=== PATIENT | female | born 1985 | race Caucasian/White ===

== ENCOUNTER 2020-06-23 21:04 | Emergency (ER) | payer MEDICAID, SELFPAY ==
[2020-06-23 21:07] VITALS: BP 112/61; PULSE 86; RESP 18; TEMP 37.3; O2SAT 100; BMI 25.8
--- NOTE | 2020-06-23 23:48 | ED.GENADULT ---
HPI - General Adult General Chief complaint: General Medical Stated complaint: vomiting,body aches Time Seen by Provider: 06/23/20 23:48 Source: patient Mode of arrival: ambulatory Limitations: no limitations History of Present Illness MD complaint: abbdominal pain, n/v/d Onset (ago): day(s) (yesterday) Location: abdomen Radiation: non-radiation Severity: moderate Quality: aching Pain Consistency: constant Relieving factors: none Exacerbating factors: none Associated symptoms: fever/chills, loss of appetite, malaise and nausea/vomiting Treatments prior to arrival: none Related Data Previous Rx's Medication Instructions Recorded ondansetron 4 mg PO Q8H PRN #20 tab 06/24/20 Allergies Allergy/AdvReac Type Severity Reaction Status Date / Time prochlorperazine Allergy Mild MUSCLE Unverified 05/13/20 19:39 [From COMPAZINE] CONTRACTIONS Compazine Allergy Unknown Uncoded 03/20/19 00:00 Review of Systems Review of Systems: Constitutional : No Weight loss, No Fever, pos Chills ENT/Mouth : No sore throat, No Rhinorrhea Eyes: No Swelling, No Redness Cardiovascular : No Chest Pain, No SOB, NoEdema Respiratory : No Cough, No Sputum, No Wheezing Gastrointestinal : Positive Nausea, Positive Vomiting, positive Diarrhea, positive abdominal Pain, No Hematochezia, No Melena Genitourinary : No Dysuria, No Urinary Frequency, No Hematuria, No Urgency Musculoskeletal : No joint pain, No Myalgias, No Joint Swelling Skin : No Skin Lesions, No rash Neuro : No Weakness, No Numbness, No Dizziness, No Headache Psych : No Anxiety/Panic, No Depression Heme/Lymph: No Bruising, No Lymphadenopathy Endocrine : No Polyuria, No Polydipsia All other systems reviewed and are negative. [facility] Past Medical History Attestation statement: The following information was validated with the patient. Medical History Hyperthyroidism Social History Social History (Updated 06/24/20 @ 00:11 by Savannah Sapp DO) Smoking Status: Never smoker Substance Use Type: Marijuana Advance Directives: No Advance Directives Information Provided: No Physical Exam Vital Signs: Vital Signs: Vital Signs Temp Pulse Resp BP Pulse Ox 06/23/20 21:07 99.2 F 86 18 112/61 100 Body Mass Index 25.8 Appearance: Alert. Oriented X3. No acute distress. Eyes: Pupils equal, round and reactive to light. ENT: Pharynx mild dry MM Neck: Normal inspection. Neck supple. CVS: Normal heart rate and rhythm. Pulses normal. Respiratory: No respiratory distress. Breath sounds normal. Abdomen: Soft and mild epigastric ttp, no RUQ pain neg Chowdary's Skin: Skin warm and dry. Normal skin color. Normal skin turgor. Extremities: No lower extremity edema. No calf ttp Neuro: Oriented X 3. No motor deficit. No sensory deficit. Course Course Course Narrative: feels much better, tolerating PO stable for DC Medical Decision Making [facility] Narrative Medical decision making narrative: 34 yo female with upper abdominal pain smokes THC - c/o n/v/d no prior episodes at this time will need labs, UA, IVF, IV antiemetics, no localizing symptoms no RLQ pain and no RUQ pain could be viral vs THC dispo per results and findings Lab Data Result diagrams: 06/24/20 00:30 06/24/20 00:30 Labs: Lab Results 06/24/20 06/24/20 06/24/20 Range/Units 00:30 00:30 00:30 WBC 5.1 (4.8-10.8) X10*3/uL RBC 3.39 L (4.20-5.50) X10*6/uL Hgb 11.3 L (12.0-16.0) g/dl Hct 33.6 L (37-47) % MCV 99.1 H (80-98) fL MCH 33.3 H (27.0-33.0) pg MCHC 33.6 (31.0-35.0) g/dl RDW 11.9 (11.0-16.0) % Plt Count 291 (160-400) X10*3/uL MPV 8.9 L (9.4-12.3) fL Immature Gran % (Auto) 0.2 (0.0-0.4) % Neut % (Auto) 53.1 (45-73) % Lymph % (Auto) 38.4 (20-40) % [place] % (Auto) 5.3 (2-11) % Eos % (Auto) 2.2 (0-4) % Baso % (Auto) 0.8 (0-2) % Lymph # (Auto) 2.0 (1.2-4.9) X10*3/uL [place] # (Auto) 0.3 (0.1-1.2) X10*3/uL Eos # (Auto) 0.1 (0.0-0.4) X10*3/uL Baso # (Auto) 0.0 (0.0-0.2) X10*3/uL Abs Immat Gran (auto) 0.01 (0.00-0.03) X10*3/uL Absolute Neuts (auto) 2.7 (2.0-8.3) X10*3/uL Absolute Nucleated RBC 0.000 (0.0-0.012) X10*3/uL Nucleated RBC % (auto) 0.0 (0.0-0.2) /100WBC Hold Blue Top SEE NOTE Sodium 140 (135-145) mmol/L Potassium 3.8 (3.3-5.1) mmol/l Chloride 106 (96-108) mmol/L Carbon Dioxide 28 (22-29) mmol/L Anion Gap 10 L (12-20) BUN 16 (9-16) mg/dL Creatinine 0.72 (0.5-1.4) mg/dL Estim Creat Clear Calc 116.2 Estimated GFR > 60 Random Glucose 87 (60-115) mg/dL Calcium 8.9 (8.4-10.2) mg/dL Magnesium (1.6-2.6) mg/dL Total Bilirubin (0.0-1.0) mg/dL Direct Bilirubin (0.0-0.5) mg/dL AST (5-31) U/L ALT (0-31) U/L Alkaline Phosphatase (39-117) U/L Total Protein (6.5-8.0) g/dL Albumin (3.5-5.0) g/dL Lipase (8-78) U/L Urine Color Urine Appearance Urine pH (5.0-8.0) Ur Specific [place] (1.005-1.025) Urine Protein (NEG-TRACE) MG/DL Urine Glucose (UA) (NEG) MG/DL Urine Ketones (NEG) MG/DL Urine Blood (NEG) Urine Nitrite (NEG) Ur Leukocyte Esterase (NEG) Urine Test (NEGATIVE) 06/24/20 06/24/20 Range/Units 00:30 02:44 WBC (4.8-10.8) X10*3/uL RBC (4.20-5.50) X10*6/uL Hgb (12.0-16.0) g/dl Hct (37-47) % MCV (80-98) fL MCH (27.0-33.0) pg MCHC (31.0-35.0) g/dl RDW (11.0-16.0) % Plt Count (160-400) X10*3/uL MPV (9.4-12.3) fL Immature Gran % (Auto) (0.0-0.4) % Neut % (Auto) (45-73) % Lymph % (Auto) (20-40) % [place] % (Auto) (2-11) % Eos % (Auto) (0-4) % Baso % (Auto) (0-2) % Lymph # (Auto) (1.2-4.9) X10*3/uL [place] # (Auto) (0.1-1.2) X10*3/uL Eos # (Auto) (0.0-0.4) X10*3/uL Baso # (Auto) (0.0-0.2) X10*3/uL Abs Immat Gran (auto) (0.00-0.03) X10*3/uL Absolute Neuts (auto) (2.0-8.3) X10*3/uL Absolute Nucleated RBC (0.0-0.012) X10*3/uL Nucleated RBC % (auto) (0.0-0.2) /100WBC Hold Blue Top Sodium (135-145) mmol/L Potassium (3.3-5.1) mmol/l Chloride (96-108) mmol/L Carbon Dioxide (22-29) mmol/L Anion Gap (12-20) BUN (9-16) mg/dL Creatinine (0.5-1.4) mg/dL Estim Creat Clear Calc Estimated GFR Random Glucose (60-115) mg/dL Calcium (8.4-10.2) mg/dL Magnesium 2.3 (1.6-2.6) mg/dL Total Bilirubin 0.7 (0.0-1.0) mg/dL Direct Bilirubin 0.2 (0.0-0.5) mg/dL AST 25 (5-31) U/L ALT 12 (0-31) U/L Alkaline Phosphatase 44 (39-117) U/L Total Protein 7.7 (6.5-8.0) g/dL Albumin 3.9 (3.5-5.0) g/dL Lipase 18 (8-78) U/L Urine Color [place] Urine Appearance HAZY Urine pH 5.5 (5.0-8.0) Ur Specific [place] >= 1.030 H (1.005-1.025) Urine Protein NEG (NEG-TRACE) MG/DL Urine Glucose (UA) NEG (NEG) MG/DL Urine Ketones 5 (NEG) MG/DL Urine Blood NEG (NEG) Urine Nitrite NEG (NEG) Ur Leukocyte Esterase NEG (NEG) Urine Test NEGATIVE (NEGATIVE) Discharge Plan Discharge Clinical Impression: Gastritis, Vomiting Patient Disposition: Home, Self-Care Instructions: Gastritis (ED), Acute Nausea and Vomiting (ED) Additional Instructions: if your symptoms return you have more vomiting or increased pain, if the pain moves to your right lower abdomen please return Prescriptions: New ondansetron 4 mg tablet,disintegrating 4 mg PO Q8H PRN (Reason: nausea and vomiting) Qty: 20 RF: 0
[2020-06-24] MEDS: Ketorolac Tromethamine 30 MG/ML VIAL IVPUSH (00:40)
[2020-06-24] MEDS: ondansetron HCL 4 MG/2 ML VIAL IVPUSH (00:41)
[2020-06-24] MEDS: Famotidine/PF 20 MG/2 ML VIAL IVPUSH (00:42)
[2020-06-24] MEDS: LORazepam 2 MG/ML VIAL 1 MG IVPUSH (00:42)
[2020-06-24] MEDS: diphenhydrAMINE HCL 50 MG/ML VIAL 25 MG IVPUSH (00:42)
[2020-06-24] MEDS: 0.9 % Sodium Chloride 1,000 ML 999 ML IVCONT (00:42)
[2020-06-24 00:44] LABS: MANUAL DIFF FLAG NO
[2020-06-24 00:45] LABS: Basophils Percent Auto 0.8 % (0-2); Eosinophils Absolute Auto 0.1 X10*3/uL (0.0-0.4); Eosinophils Percent Auto 2.2 % (0-4); Hematocrit 33.6 % (37-47); Hemoglobin 11.3 g/dl (12.0-16.0); Imm Gran Abs Auto 0.01 X10*3/uL (0.00-0.03); Imm Gran Pct Auto 0.2 % (0.0-0.4); Lymphocytes Percent Auto 38.4 % (20-40); Mean Corpuscular HGB Conc 33.6 g/dl (31.0-35.0); Mean Corpuscular Hemoglobin 33.3 pg (27.0-33.0); Mean Corpuscular Volume 99.1 fL (80-98); Mean Platelet Volume 8.9 fL (9.4-12.3); Monocytes Absolute Auto 0.3 X10*3/uL (0.1-1.2); Monocytes Percent Auto 5.3 % (2-11); Neutrophils Absolute Auto 2.7 X10*3/uL (2.0-8.3); Neutrophils Percent Auto 53.1 % (45-73); Platelet Count 291 X10*3/uL (160-400); Red Blood Count 3.39 X10*6/uL (4.20-5.50); Red Cell Distribution Width 11.9 % (11.0-16.0); White Blood Count 5.1 X10*3/uL (4.8-10.8)
[2020-06-24 01:07] LABS: Anion Gap 10 (12-20); Blood Urea Nitrogen 16 mg/dL (9-16); Calcium 8.9 mg/dL (8.4-10.2); Carbon Dioxide 28 mmol/L (22-29); Chloride 106 mmol/L (96-108); Creatinine Clr Calc Pharmacy 116.2; Estimated Glomerular Filt Rate > 60; Glucose Random 87 mg/dL (60-115); Potassium 3.8 mmol/l (3.3-5.1); Sodium 140 mmol/L (135-145)
[2020-06-24 01:10] LABS: Alanine Aminotransferase 12 U/L (0-31); Albumin Level 3.9 g/dL (3.5-5.0); Alkaline Phosphatase 44 U/L (39-117); Aspartate Amino Transferase 25 U/L (5-31); Bilirubin Direct 0.2 mg/dL (0.0-0.5); Bilirubin Total 0.7 mg/dL (0.0-1.0); Lipase 18 U/L (8-78); Magnesium 2.3 mg/dL (1.6-2.6); Total Protein 7.7 g/dL (6.5-8.0)
[2020-06-24] MEDS: Morphine Sulfate 4 MG/ML CARTRIDGE IVPUSH (01:45)
[2020-06-24 02:53] LABS: Appearance Urine HAZY; Color Urine AMBER; Glucose Urine UA NEG (NEG); Leukocyte Esterase Urine NEG (NEG); Nitrite Urine NEG (NEG); PH 5.5 (5.0-8.0); Specific Gravity - Urine >= 1.030 (1.005-1.025); UACC Culture Trigger NO; Urine Blood NEG (NEG); Urine Ketones 5 MG/DL (NEG); Urine Protein NEG (NEG-TRACE)
[2020-06-24 02:54] LABS: UPreg QC Valid YES
[2020-06-24 02:55] LABS: Urine Pregnancy NEGATIVE (NEGATIVE)
[2020-06-24 03:20] LABS: Amphetamine Screen Urine Not Detected (Not Detect); Barbiturates, Urine Not Detected (Not Detect); Benzodiazepines Screen Urine Not Detected (Not Detect); Cannabinoid Screen Urine POSITIVE (Not Detect); Cocaine Screen Urine Not Detected (Not Detect); Opiate Screen Urine POSITIVE (Not Detect); Phencyclidine Screen Urine Not Detected (Not Detect)
== END 2020-06-24 03:29 | disposition home or self-care (01) ==
PROVIDERS: Emergency Provider Emergency Medicine
DX: K29.00 Acute gastritis without bleeding (principal); M79.10 Myalgia, unspecified site; R11.10 Vomiting, unspecified; Z20.828 Contact with and (suspected) exposure to other viral communicable diseases
CPT/HCPCS: 36415; 80048; 80076; 80307; 81003; 81025; 83690; 83735; 85025; 96361; 96374; 96375; 99283; 99284; J1200; J1885; J2060; J2270; J2405

== ENCOUNTER 2020-10-21 14:19 | Emergency (ER) | payer MEDICAID, SELFPAY ==
--- NOTE | ~2020-10-21 | XR_ITS ---
EXAMINATION: XR CHEST CLINICAL INFORMATION: Cough, shortness of breath COMPARISON: None TECHNIQUE: Portable upright AP view of the chest was obtained. FINDINGS: The lungs are clear. There is no airspace consolidation, groundglass opacity, pleural reaction, or effusion. The heart is normal in size hilar and mediastinal contours are normal. There is gentle levocurvature mid to lower thoracic spine. XR/XR chest 1V IMPRESSION: Unremarkable examination.
[2020-10-21 14:35] VITALS: BP 117/61; PULSE 97; RESP 16; TEMP 36.8; O2SAT 97; BMI 25.8
[2020-10-21 14:43] VITALS: BP 117/61; PULSE 97; RESP 16; TEMP 36.8; O2SAT 97
--- NOTE | 2020-10-21 14:46 | ED.ASTHMA ---
HPI - Asthma General Chief Complaint: Asthma Stated Complaint: sob,cough Time Seen by Provider: 10/21/20 14:36 Source: patient Mode of arrival: ambulatory Limitations: no limitations History of Present Illness HPI Narrative: 34 y/o female with history of mild, intermittent asthma and hypothyroidism presents to the ED from home with reports of SOB, coughing, and wheezing for the last 1 week. She has been using her son's nebulizers and inhalers at home because she does not have any of her own. She states her last asthma exacerbation was 3+ years ago. She has been unable to take a deep enough breath to cough up phlegm and feels like her chest is congested. She received both of the COVID-19 vaccinations. She denies fever, chills, headache, myalgias, N/V/D or abdominal pain. No chest pain. No sick contacts. MD complaint: asthma attack , shortness of breath and wheezing Onset (ago): day(s) (7-10) Severity: moderate Context: none known Associated symptoms: dry cough Asthma History: adult onset and history of prior ED visit Treatments Prior to Arrival: inhaled bronchodilator Related Data Current Asthma Therapy: none Previous Rx's Medication Instructions Recorded ondansetron 4 mg PO Q8H PRN #20 tab 06/24/20 albuterol sulfate 0.63 mg INHALATION Q4-6H PRN #75 ml 10/21/20 albuterol sulfate 1 inh INHALATION QID PRN #6.7 g 10/21/20 azithromycin [Zithromax Z-Gerson] See Rx Instructions .ROUTE 10/21/20 .COMPLEX #6 tab benzonatate [Tessalon Perles] 100 mg PO TID PRN #10 cap 10/21/20 prednisone 10 mg PO PER PKG DIR #48 ea 10/21/20 Allergies Allergy/AdvReac Type Severity Reaction Status Date / Time prochlorperazine Allergy Mild MUSCLE Unverified 05/13/20 19:39 [From COMPAZINE] CONTRACTIONS Compazine Allergy Unknown Uncoded 03/20/19 00:00 Review of Systems Review of Systems: Constitutional: No Fever, No Chills ENT/Mouth: No sore throat, No Rhinorrhea, No Swallowing Difficulty Cardiovascular: No Chest Pain, + SOB, No Orthopnea, No Edema Respiratory: + Cough, No Sputum, + Wheezing, + dyspnea Gastrointestinal: No Nausea, No Vomiting, No Diarrhea, No abdominal Pain Musculoskeletal: No joint pain, No Myalgias Skin: No Skin Lesions, No rash Neuro: No Weakness, No Numbness, No Dizziness, No Headache Psych: No Anxiety/Panic, No Depression Heme/Lymph: No Bruising, No Lymphadenopathy Endocrine: No Polyuria, No Polydipsia PMFSH Past Medical History Attestation statement: The following information was validated with the patient. Medical History (Updated 10/21/20 @ 15:03 by LAWRENCE Hazel) Asthma Hypothyroidism Social History Social History (Updated 06/24/20 @ 00:11 by Savannah Sapp DO) Alcohol intake: never Smoking Status: Never smoker Use of substances other than those prescribed or required for medical reasons: No Substance Use Type: Marijuana Advance Directives: No Advance Directives Information Provided: No Physical Exam Vital Signs: Vital Signs: Last Vital Signs Temp 98.3 F 10/21/20 14:43 Pulse 81 10/21/20 15:48 Resp 16 10/21/20 14:43 BP 117/61 10/21/20 14:43 Pulse Ox 97 10/21/20 14:43 Body Mass Index 25.8 Appearance: Alert. Oriented X3. No acute distress. Conversant. Eyes: Pupils equal, round and reactive to light. ENT: Pharynx normal. Neck: Normal inspection. Neck supple. CVS: Normal heart rate and rhythm. Pulses normal. Respiratory: No respiratory distress. Expiratory wheezes throughout with scattered rhonchi, prolonged expiratory phase. Abdomen: Soft and nontender. +BS x4 Skin: Skin warm and dry. Normal skin color. Normal skin turgor. No rashes. Extremities: No lower extremity edema. Negative Oren's sign. Neuro: Oriented X 3. No motor deficit. No sensory deficit. Course Course Course Narrative: 34 y/o female presenting with SOB, cough and wheezing consistent with acute asthma exacerbation. Non-toxic appearing and speaking in full sentences. Will plan for CXR, r/o COVID (low suspicion) and give hour long albuerol nebulizer and dose of prednisone. Anticipate d/c home with prednisone taper. Will reassess after neb. Reevaluation(s) Reevaluation #1: COVID negative. CXR clear. Significant improvement after nebulizer treatment. Will d/c with prednisone taper, zpak, and prn albuterol. Patient is agreeable to follow up with her PCP for further managmenet. MDM - Asthma Lab Data Labs: Lab Results 10/21/20 Range/Units 15:25 COVID-19 (JOSE MARTIN) Negative (Negative) COVID-19 Clin Com See Note Discharge Plan Discharge Clinical Impression: Asthma Qualifiers: Asthma severity: mild Asthma persistence: intermittent Asthma complication type: with acute exacerbation Qualified Code(s): J45.21 - Mild intermittent asthma with (acute) exacerbation Patient Disposition: Home, Self-Care Instructions: Asthma (ED) Additional Instructions: You were COVID negative today. Your chest x-ray was normal. Take the prescribed medications as directed for your asthma. Follow up with your doctor next week. If your breathing is worsening come back to the ER for further evaluation. Prescriptions: New azithromycin [Zithromax Z-Gerson] 250 mg tablet See Rx Instructions .ROUTE .COMPLEX Qty: 6 RF: 0 prednisone 10 mg tablets,dose pack 10 mg PO PER PKG DIR Qty: 48 RF: 0 benzonatate [Tessalon Perles] 100 mg capsule 100 mg PO TID PRN (Reason: cough) Qty: 10 RF: 0 albuterol sulfate 90 mcg/actuation HFA aerosol inhaler 1 inh inhalation QID PRN (Reason: shortness of breath or wheezing) Qty: 6.7 RF: 0 albuterol sulfate 0.63 mg/3 mL solution for nebulization 0.63 mg inhalation Q4-6H PRN (Reason: shortness of breath or wheezing) Qty: 75 RF: 0 No Action ondansetron 4 mg tablet,disintegrating 4 mg PO Q8H PRN (Reason: nausea and vomiting) Qty: 20 RF: 0
[2020-10-21] MEDS: guaiFENesin LA 600 MG TAB.ER.12H 1200 MG PO (15:19)
[2020-10-21] MEDS: predniSONE 20 MG TABLET 60 MG PO (15:19)
[2020-10-21] MEDS: Albuterol Sulfate (0.083%) 2.5 MG/3 ML VIAL.NEB 10 MG INHALE (15:46)
[2020-10-21 15:48] VITALS: PULSE 81; O2SAT 95
[2020-10-21 15:52] LABS: COVID-19 Test Negative (Negative)
[2020-10-21 16:46] VITALS: BP 122/78; PULSE 89; RESP 20; TEMP 36.8; O2SAT 96
== END 2020-10-21 17:00 | disposition home or self-care (01) ==
LOC: HO.ED 15:10
PROVIDERS: Physician Assistant; Emergency Provider Emergency Medicine
DX: J45.21 Mild intermittent asthma with (acute) exacerbation (principal); Z20.822 Contact with and (suspected) exposure to COVID-19; F12.90 Cannabis use, unspecified, uncomplicated
CPT/HCPCS: 36415; 71045; 87635; 94640; 94644; 99284; 99285

== ENCOUNTER 2020-12-11 03:34 | Emergency (ER) | payer MEDICAID, SELFPAY ==
[2020-12-11 03:43] VITALS: BP 130/70; PULSE 116; O2SAT 97
[2020-12-11 03:44] VITALS: BP 117/79; PULSE 111; RESP 20; TEMP 36.6; O2SAT 96; BMI 25.8
[2020-12-11 04:00] VITALS: BP 101/59; PULSE 77; RESP 18; O2SAT 93
[2020-12-11 04:55] LABS: Basophils Absolute Auto 0.1 X10*3/uL (0.0-0.2); Basophils Percent Auto 0.9 % (0-2); Eosinophils Absolute Auto 0.8 X10*3/uL (0.0-0.4); Eosinophils Percent Auto 9.5 % (0-4); Hematocrit 37.5 % (37-47); Hemoglobin 12.4 g/dl (12.0-16.0); Imm Gran Abs Auto 0.02 X10*3/uL (0.00-0.03); Imm Gran Pct Auto 0.2 % (0.0-0.4); Lymphocytes Absolute Auto 1.8 X10*3/uL (1.2-4.9); Lymphocytes Percent Auto 20.6 % (20-40); MANUAL DIFF FLAG NO; Mean Corpuscular HGB Conc 33.1 g/dl (31.0-35.0); Mean Corpuscular Hemoglobin 32.8 pg (27.0-33.0); Mean Corpuscular Volume 99.2 fL (80-98); Mean Platelet Volume 9.1 fL (9.4-12.3); Monocytes Absolute Auto 0.6 X10*3/uL (0.1-1.2); Neutrophils Absolute Auto 5.5 X10*3/uL (2.0-8.3); Neutrophils Percent Auto 61.8 % (45-73); Platelet Count 302 X10*3/uL (160-400); Red Blood Count 3.78 X10*6/uL (4.20-5.50); Red Cell Distribution Width 12.2 % (11.0-16.0); White Blood Count 8.8 X10*3/uL (4.8-10.8)
[2020-12-11 05:19] LABS: Anion Gap 14 (12-20); Blood Urea Nitrogen 12 mg/dL (9-16); Calcium 9.3 mg/dL (8.4-10.2); Carbon Dioxide 26 mmol/L (22-29); Chloride 106 mmol/L (96-108); Creatinine Clr Calc Pharmacy 115.1; Estimated Glomerular Filt Rate > 60; Glucose Random 82 mg/dL (60-115); Sodium 142 mmol/L (135-145)
[2020-12-11 05:27] VITALS: BP 105/60; PULSE 71; RESP 16; TEMP 36.6; O2SAT 2
--- NOTE | 2020-12-11 06:11 | ED.ASTHMA ---
HPI - Asthma General Chief Complaint: Asthma Stated Complaint: sob Time Seen by Provider: 12/11/20 06:08 Source: patient Mode of arrival: EMS Limitations: no limitations History of Present Illness HPI Narrative: Patient comes emergency room complaining of an asthma exacerbation. Patient states that he woke up from sleep with shortness of breath, used an inhaler 3 times with no relief. Patient was given a DuoNeb by EMS. Patient states now that she feels much better. Patient denies any recent URI infection. States her asthma exacerbations are usually relieved by her inhaler. At this time, denies shortness of breath, no chest tightness, feeling well. MD complaint: asthma attack Related Data Previous Rx's Medication Instructions Recorded ondansetron 4 mg PO Q8H PRN #20 tab 06/24/20 albuterol sulfate 0.63 mg INHALATION Q4-6H PRN #75 ml 10/21/20 albuterol sulfate 1 inh INHALATION QID PRN #6.7 g 10/21/20 azithromycin [Zithromax Z-Gerson] See Rx Instructions .ROUTE 10/21/20 .COMPLEX #6 tab benzonatate [Tessalon Perles] 100 mg PO TID PRN #10 cap 10/21/20 prednisone 10 mg PO PER PKG DIR #48 ea 10/21/20 prednisone 50 mg PO DAILY #4 tab 12/11/20 Allergies Allergy/AdvReac Type Severity Reaction Status Date / Time prochlorperazine Allergy Mild MUSCLE Verified 12/11/20 03:44 [From COMPAZINE] CONTRACTIONS Compazine Allergy Unknown Shakiness Uncoded 12/11/20 03:44 Review of Systems Review of Systems: Constitutional : No Weight loss, No Fever, No Chills, No Night Sweats, No Fatigue, No Malaise ENT/Mouth : No Hearing loss, No Ear Pain, No Nasal Congestion, No Sinus Pain, No Hoarseness, No sore throat, No Rhinorrhea, No Swallowing Difficulty Eyes: No Eye Pain, No Swelling, No Redness, No Foreign Body, No Discharge, No Vision Changes Cardiovascular : No Chest Pain, No SOB, No Dyspnea on Exertion, No Orthopnea, No Edema, No Palpitations Respiratory : No Cough, No Sputum, complaining of wheezing and dyspnea, asthma exacerbation Gastrointestinal : No Nausea, No Vomiting, No Diarrhea, No Constipation, No abdominal Pain, No Hematochezia, No Melena Genitourinary : no irregular bleeding, No Dysuria, No Urinary Frequency, No Hematuria, No Urinary Incontinence, No Urgency, No Flank Pain, No Urinary Flow Changes, No Hesitancy Musculoskeletal : No joint pain, No Myalgias, No Joint Swelling Skin : No Skin Lesions, No rash Neuro : No Weakness, No Numbness, No Paresthesias, No Loss of Consciousness, No Dizziness, No Headache Psych : No Anxiety/Panic, No Depression, No SI/HI/AH/VH, No Social Issues, Heme/Lymph: No Bruising, No Bleeding,No Lymphadenopathy Endocrine : No Polyuria, No Polydipsia, No Temperature Intolerance PMFSH Past Medical History Medical History Asthma Hypothyroidism Social History Social History (Updated 06/24/20 @ 00:11 by Savannah Sapp DO) Alcohol intake: never Smoking Status: Never smoker Use of substances other than those prescribed or required for medical reasons: Yes Substance Use Type: Marijuana Substance Use Frequency: Weekly Last Used Substance: Days (ago) Any prior treatment program specific to substance use: No Advance Directives: No Advance Directives Information Provided: No Physical Exam Vital Signs: Vital Signs: Last Vital Signs Temp 97.9 F 12/11/20 05:27 Pulse 71 12/11/20 05:27 Resp 16 12/11/20 05:27 BP 105/60 12/11/20 05:27 Pulse Ox 2 L 12/11/20 05:27 Body Mass Index 25.8 Appearance: Alert. Oriented X3. No acute distress. Eyes: Pupils equal, round and reactive to light. ENT: Pharynx normal. Neck: Normal inspection. Neck supple. No lymph nodes noted. No crepitus CVS: Normal heart rate and rhythm. Pulses normal. Normal S1 and S2 Respiratory: No respiratory distress. Breath sounds normal. No wheezing bilaterally, good air movement Abdomen: Soft and nontender. No rigidity. No distention. good BS x4 Skin: Skin warm and dry. Normal skin color. Normal skin turgor. Extremities: No lower extremity edema. No lower extremity edema. No Lacerations. No Rash Neuro: Oriented X 3. No motor deficit. No sensory deficit. Moving all extermities. No slurred speech. Course Course Course Narrative: After the DuoNeb that she received, patient started feeling better, breathing more comfortably. Patient will receive 125 mg of Solu-Medrol. Patient states that she has enough medication at home, patient will be given prednisone for home as well. As patient was being discharged, patient states that she started feeling short of breath. Breathing treatment and magnesium ordered. Respiratory therapist notified. Patient has mild bilateral diffuse wheezing, oxygen saturation 98% on room air, patient speaking in full sentences. Patient states that her IV was pulled out before she received 125 mg of Solu-Medrol Patient received her medications, breathing treatment, patient states that she feels much better. On physical exam, patient's oxygen saturation 98% on room air, walking around the ED 94%. Patient back in her room, feeling well, no shortness of breath, no wheezing. Patient already for discharge MDM - Asthma Lab Data Result diagrams: 12/11/20 04:46 12/11/20 04:46 Labs: Lab Results 12/11/20 12/11/20 Range/Units 04:46 04:46 WBC 8.8 (4.8-10.8) X10*3/uL RBC 3.78 L (4.20-5.50) X10*6/uL Hgb 12.4 (12.0-16.0) g/dl Hct 37.5 (37-47) % MCV 99.2 H (80-98) fL MCH 32.8 (27.0-33.0) pg MCHC 33.1 (31.0-35.0) g/dl RDW 12.2 (11.0-16.0) % Plt Count 302 (160-400) X10*3/uL MPV 9.1 L (9.4-12.3) fL Immature Gran % (Auto) 0.2 (0.0-0.4) % Neut % (Auto) 61.8 (45-73) % Lymph % (Auto) 20.6 (20-40) % [place] % (Auto) 7.0 (2-11) % Eos % (Auto) 9.5 H (0-4) % Baso % (Auto) 0.9 (0-2) % Lymph # (Auto) 1.8 (1.2-4.9) X10*3/uL [place] # (Auto) 0.6 (0.1-1.2) X10*3/uL Eos # (Auto) 0.8 H (0.0-0.4) X10*3/uL Baso # (Auto) 0.1 (0.0-0.2) X10*3/uL Abs Immat Gran (auto) 0.02 (0.00-0.03) X10*3/uL Absolute Neuts (auto) 5.5 (2.0-8.3) X10*3/uL Absolute Nucleated RBC 0.000 (0.0-0.012) X10*3/uL Nucleated RBC % (auto) 0.0 (0.0-0.2) /100WBC Sodium 142 (135-145) mmol/L Potassium 4.0 (3.3-5.1) mmol/L Chloride 106 (96-108) mmol/L Carbon Dioxide 26 (22-29) mmol/L Anion Gap 14 (12-20) BUN 12 (9-16) mg/dL Creatinine 0.72 (0.5-1.4) mg/dL Estim Creat Clear Calc 115.1 Estimated GFR > 60 Random Glucose 82 (60-115) mg/dL Calcium 9.3 (8.4-10.2) mg/dL Discharge Plan Discharge Clinical Impression: Asthma Patient Disposition: Home, Self-Care Instructions: Bronchospasm (ED) Additional Instructions: Please follow-up with your primary care physician tomorrow. If you have any worsening or new symptoms, please return to the emergency room or call 911 Prescriptions: New prednisone 50 mg tablet 50 mg PO DAILY Qty: 4 RF: 0 No Action ondansetron 4 mg tablet,disintegrating 4 mg PO Q8H PRN (Reason: nausea and vomiting) Qty: 20 RF: 0 azithromycin [Zithromax Z-Gerson] 250 mg tablet See Rx Instructions .ROUTE .COMPLEX Qty: 6 RF: 0 prednisone 10 mg tablets,dose pack 10 mg PO PER PKG DIR Qty: 48 RF: 0 benzonatate [Tessalon Perles] 100 mg capsule 100 mg PO TID PRN (Reason: cough) Qty: 10 RF: 0 albuterol sulfate 90 mcg/actuation HFA aerosol inhaler 1 inh inhalation QID PRN (Reason: shortness of breath or wheezing) Qty: 6.7 RF: 0 albuterol sulfate 0.63 mg/3 mL solution for nebulization 0.63 mg inhalation Q4-6H PRN (Reason: shortness of breath or wheezing) Qty: 75 RF: 0 Interventions: ED Discharge Assessment Last Done: 12/11/20 06:33 Discharge Date/Time: 12/11/20 06:33 Print Language: [place]i
--- NOTE | 2020-12-11 06:28 | PC.NURSE ---
pt has been sleeping thur the night, relaxed sat 95% on room air and talking in full sentences.
--- NOTE | 2020-12-11 07:07 | PC.NURSE ---
pt was discharged and ambulated to the waiting room where her was throwing a fit that she was being discharged. pt slept thur the night sat 95-98% no wheezing noted. once pt was with her she was worked up wheezing. pt ambulated back to her room and stated he is like this. Pt states she is under alot of stress of working 2 jobs, wakes up at night with sob and wheezing. pt was not wheezing till she was had a confrontation with her in the [place]. pt was brought back and will be treated for asthma aserbation.
[2020-12-11] MEDS: Magnesium Sulfate/H2O 2 GM/50 ML PIGGYBACK IV (07:20)
[2020-12-11] MEDS: Albuterol Sulfate (0.083%) 2.5 MG/3 ML VIAL.NEB 10 MG INHALE (07:21)
[2020-12-11] MEDS: methylPREDNISolone Sod Succ 125 MG/2 ML VIAL IVPUSH (07:21)
--- NOTE | 2020-12-11 07:30 | PC.NURSE ---
albuterol given by respiratory
--- NOTE | 2020-12-11 08:11 | PC.NURSE ---
amb pt with o2 sat monitor remained 94 to 96 % pt states feeling much better and denies SOB
== END 2020-12-11 08:22 | disposition home or self-care (01) ==
PROVIDERS: Emergency Provider Emergency Medicine
DX: J45.909 Unspecified asthma, uncomplicated (principal); F12.90 Cannabis use, unspecified, uncomplicated; Z79.899 Other long term (current) drug therapy
CPT/HCPCS: 36415; 80048; 85025; 96365; 96375; 99284; J2930; J3475

== ENCOUNTER → 2021-03-01 09:47 | Outpatient (BNVA) | payer MEDICAID, SELFPAY | PROVIDERS: Visit Provider Internal Medicine | DX: F11.99 Opioid use, unspecified with unspecified opioid-induced disorder (principal) | CPT/HCPCS: 80305; 99202 ==

== ENCOUNTER 2021-03-08 09:36 | Outpatient (REF) | payer MEDICAID, SELFPAY | END 2021-03-08 09:37 | disposition home or self-care (01) | LOC: HO.LAB 09:36 | DX: Z51.81 Encounter for therapeutic drug level monitoring (principal); Z79.899 Other long term (current) drug therapy | CPT/HCPCS: 80305; 99211 ==

== ENCOUNTER 2021-03-29 09:08 | Outpatient (REF) | payer MEDICAID, SELFPAY | END 2021-03-29 09:09 | disposition home or self-care (01) | LOC: HO.LNP 09:08 | PROVIDERS: Visit Provider Internal Medicine | DX: F11.99 Opioid use, unspecified with unspecified opioid-induced disorder (principal) | CPT/HCPCS: 80305; 80354; 80364; 80365; 99211 ==

== ENCOUNTER → 2021-04-05 10:18 | Outpatient (BNVA) | payer MEDICAID, SELFPAY | DX: Z51.81 Encounter for therapeutic drug level monitoring (principal); F11.90 Opioid use, unspecified, uncomplicated | CPT/HCPCS: 80305; 99211 ==

== ENCOUNTER → 2021-04-19 10:30 | Outpatient (BNVA) | payer MEDICAID, SELFPAY | PROVIDERS: Visit Provider Internal Medicine | DX: F12.20 Cannabis dependence, uncomplicated (principal); Z51.81 Encounter for therapeutic drug level monitoring; Z79.899 Other long term (current) drug therapy | CPT/HCPCS: 80305; 99212 ==

== ENCOUNTER 2021-05-23 17:16 | Emergency (ER) | payer MEDICAID, SELFPAY | END 2021-05-23 19:51 | disposition left against medical advice (07) | PROVIDERS: Emergency Provider Emergency Medicine | DX: J34.89 Other specified disorders of nose and nasal sinuses (principal) ==

== ENCOUNTER 2021-05-24 08:21 | Emergency (ER) | payer MEDICAID, SELFPAY ==
[2021-05-24 08:54] VITALS: BP 106/57; PULSE 76; RESP 18; TEMP 37.2; O2SAT 100; BMI 25.8
--- NOTE | 2021-05-24 09:29 | ED.GENADULT ---
HPI - General Adult General Chief complaint: General Medical Stated complaint: sinus issue Time Seen by Provider: 05/24/21 09:10 Source: patient Mode of arrival: ambulatory Limitations: no limitations History of Present Illness HPI narrative: 35-year-old female here with complaints of sinus pressure, sinus pain and nasal congestion for 1 week despite [id number] medications. No fevers or chills. Did an outpatient COVID test which was negative Related Data Previous Rx's Medication Instructions Recorded ondansetron 4 mg disintegrating 4 mg PO Q8H PRN #20 tab 06/24/20 tablet albuterol sulfate 0.63 mg/3 mL 0.63 mg INHALATION Q4-6H PRN #75 ml 10/21/20 solution for nebulization albuterol sulfate 90 mcg/actuation 1 inh INHALATION QID PRN #6.7 g 10/21/20 aerosol inhaler benzonatate 100 mg capsule 100 mg PO TID PRN #10 cap 10/21/20 (Tessalon Perles) prednisone 10 mg tablets in a dose 10 mg PO PER PKG DIR #48 ea 10/21/20 pack prednisone 50 mg tablet 50 mg PO DAILY #4 tab 12/11/20 clonidine HCl 0.1 mg tablet 0.1 mg PO TID 7 Days #21 tab 03/01/21 buprenorphine 2 mg-naloxone 0.5 mg 3 film BUCCAL DAILY 3 Days #9 ea 03/08/21 sublingual film (Suboxone) hydroxyzine pamoate 25 mg capsule 25 mg PO TID PRN 7 Days #21 cap 04/19/21 (Vistaril) amoxicillin 875 mg-potassium 1 tab PO BID #14 tab 05/24/21 clavulanate 125 mg tablet (Augmentin) mometasone 50 mcg/actuation nasal 2 spray INTRANASAL DAILY #17 g 05/24/21 spray (Nasonex) Allergies Allergy/AdvReac Type Severity Reaction Status Date / Time prochlorperazine Allergy Mild MUSCLE Verified 05/24/21 08:57 [From COMPAZINE] CONTRACTIONS Compazine Allergy Unknown Shakiness Uncoded 12/11/20 03:44 Review of Systems Review of Systems: Yes all other systems are reviewed and are negative Constitutional: Constitutional: Reports no additional constitutional complaints, Denies body ache(s), Denies chills, Denies fever(s), Denies headache(s) and Denies weakness Eyes: Eyes: Reports no additional eye complaints and Denies change in vision ENT: Reports system reviewed and no additional complaints, except as documented, Denies dizziness, Denies headache(s), Reports nasal congestion, Denies nasal discharge, Denies neck pain, Reports sinus pain and Reports sinus pressure Cardiovascular: Cardiovascular: Reports no additional cardiovascular complaints, Denies chest pain, Denies leg edema and Denies dyspnea Respiratory: Respiratory: Reports no additional respiratory complaints, Denies cough and Denies dyspnea Gastrointestinal: Gastrointestinal: Reports no additional gastrointestinal complaints, Denies abdominal pain, Denies diarrhea, Denies nausea and Denies vomiting Genitourinary: Genitourinary: Reports no additional female genitourinary complaints and Denies urinary incontinence Musculoskeletal: Musculoskeletal: Reports no additional musculoskeletal complaints, Denies back pain, Denies arthralgias, Denies joint swelling, Denies neck pain, Denies numbness and Denies tingling Integumentary/Breasts: Skin/Breast: Reports system reviewed and no additional complaints, except as docu and Denies rash Neurologic: Reports system reviewed and no additional complaints, except as documented, Denies Abnormal speech present, Denies dizziness, Denies headache(s), Denies numbness, Denies tingling and Denies weakness [facility] Past Medical History Attestation statement: The following information was validated with the patient. Source: old records reviewed and nursing notes reviewed Medical History Asthma Hypothyroidism Opioid use disorder Social History Social History Alcohol intake: never Substance Use Type: Marijuana Advance Directives: No Advance Directives Information Provided: No Patient : No Physical Exam Vital Signs: Vital Signs: Last Vital Signs Temp 99.0 F 05/24/21 08:54 Pulse 76 05/24/21 08:54 Resp 18 05/24/21 08:54 BP 106/57 L 05/24/21 08:54 Pulse Ox 100 05/24/21 08:54 Body Mass Index 25.8 Const: General: cooperative, healthy appearing, comfortable and no acute distress Orientation/consciousness: patient oriented x3 Limitations: no limitations HENMT: Head: Yes normal to inspection Ears: hearing grossly normal bilaterally and TM's normal bilaterally General nose exam: Normal external nose present Face and sinus: Yes normal facial exam, Yes sinus tenderness (Frontal and maxillary) and Yes other (Nasal turbinate erythema bilaterally) Mouth: Normal oral and palatal mucosa present Throat: Yes posterior oropharynx normal Eyes: General: appearance normal, both eyes and all related structures Pupils: Equal, round and reactive pupils present Neck: Neck: Yes normal visual inspection, Yes full ROM, Yes no lymphadenopathy and Yes no meningeal signs Chest: Chest palpation & inspection: normal inspection of the chest Resp: Effort & Inspection: normal respiratory effort Auscultation: clear to auscultation bilaterally Cardio: Rate: regular rate Rhythm: regular rhythm Peripheral pulses: Peripheral pulses 2+ throughout GI: Inspection: Yes normal to inspection Palpation (GI): Soft to palpation and nontender Auscultation: normal bowel sounds Back/Spine/Pelvis: Thoracic/Lumbar Spine: thoracic and lumbar spine normal to inspection Skin: General skin exam: no rashes or lesions noted Neuro: General: patient oriented x3, no meningeal signs, no focal motor deficits and normal sensation to monofilament Cranial nerves: Yes Equal, round and reactive pupils present Cognition (Neuro): normal cognition Speech: No Abnormal speech present Gait exam (Neuro): Normal gait present Motor exam (neuro): 5/5 motor strength present throughout Extrem: General: Yes normal to inspection Course Course Course Narrative: Sinus pressure, sinus pain and nasal congestion for 1 week despite [id number]-[id number] medications. Exam is consistent with sinusitis. Will treat with course of antibiotics and nasal spray. Reviewed worrisome signs and symptoms of when to return to the emergency department. Comfortable discharge home. Medical Decision Making Medical Records Medical records reviewed: Yes I reviewed the patient's medical records. Lab Data Lab results reviewed: Yes I reviewed the patient's lab results. Discharge Plan Discharge Clinical Impression: Sinusitis Patient Disposition: Home, Self-Care Instructions: Sinusitis (ED) Additional Instructions: Continue daily allergy medication Prescriptions: New amoxicillin-pot clavulanate [Augmentin] 875-125 mg tablet 1 tab PO BID Qty: 14 RF: 0 mometasone [Nasonex] 50 mcg/actuation spray,non-aerosol 2 spray intranasal DAILY Qty: 17 RF: 0 No Action buprenorphine-naloxone [Suboxone] 2-0.5 mg film 3 film buccal DAILY 3 Days Qty: 9 RF: 0 ondansetron 4 mg tablet,disintegrating 4 mg PO Q8H PRN (Reason: nausea and vomiting) Qty: 20 RF: 0 prednisone 50 mg tablet 50 mg PO DAILY Qty: 4 RF: 0 prednisone 10 mg tablets,dose pack 10 mg PO PER PKG DIR Qty: 48 RF: 0 benzonatate [Tessalon Perles] 100 mg capsule 100 mg PO TID PRN (Reason: cough) Qty: 10 RF: 0 albuterol sulfate 90 mcg/actuation HFA aerosol inhaler 1 inh inhalation QID PRN (Reason: shortness of breath or wheezing) Qty: 6.7 RF: 0 albuterol sulfate 0.63 mg/3 mL solution for nebulization 0.63 mg inhalation Q4-6H PRN (Reason: shortness of breath or wheezing) Qty: 75 RF: 0 clonidine HCl 0.1 mg tablet 0.1 mg PO TID 7 Days Qty: 21 RF: 0 hydroxyzine pamoate [Vistaril] 25 mg capsule 25 mg PO TID PRN (Reason: itching) 7 Days Qty: 21 RF: 0 Referrals: Physician,Unknown [Primary Care Provider] - 2 days Interventions: ED Discharge Assessment Last Done: 05/24/21 09:26 Discharge Date/Time: 05/24/21 09:27
== END 2021-05-24 09:27 | disposition home or self-care (01) ==
PROVIDERS: Emergency Provider Emergency Medicine
DX: J32.9 Chronic sinusitis, unspecified (principal); Z79.899 Other long term (current) drug therapy
CPT/HCPCS: 99283

== ENCOUNTER 2021-08-19 12:37 | Emergency (ER) | payer MEDICAID, SELFPAY ==
--- NOTE | ~2021-08-19 | XR_ITS ---
EXAMINATION: XR CHEST CLINICAL INFORMATION: Cough, fever. COMPARISON: Chest radiograph 10/21/2020. TECHNIQUE: 2 views of the chest were obtained. FINDINGS: Normal appearance of the cardiomediastinal structures. No effusions or pneumothoraces. Lungs clear. XR/XR chest 2V IMPRESSION: *No acute cardiopulmonary abnormalities.
[2021-08-19 13:06] LABS: COVID-19 Test Negative (Negative)
[2021-08-19 13:18] VITALS: BP 104/61; PULSE 87; RESP 17; TEMP 36.7; O2SAT 99; BMI 24.3
--- NOTE | 2021-08-19 13:29 | ED_ITS ---
HPI - General Adult General Chief complaint: General Medical Stated complaint: body aches cough Time Seen by Provider: 08/19/21 12:39 Source: patient Mode of arrival: ambulatory Limitations: no limitations History of Present Illness HPI narrative: 35-year-old female with a history of asthma here with reports of nasal congestion, sinus pressure and pain, cough, body aches, chills for several days. No fever, vomiting, diarrhea, abdominal pain, difficulty breathing or chest pain. Patient receive COVID vaccine x2 Related Data Previous Rx's Medication Instructions Recorded ondansetron 4 mg disintegrating 4 mg PO Q8H PRN #20 tab 06/24/20 tablet albuterol sulfate 0.63 mg/3 mL 0.63 mg (3 mL) INHALATION Q4-6H 10/21/20 solution for nebulization PRN #75 ml albuterol sulfate 90 mcg/actuation 1 inh INHALATION QID PRN #6.7 g 10/21/20 aerosol inhaler benzonatate 100 mg capsule 100 mg PO TID PRN #10 cap 10/21/20 (Vera Sinclair) prednisone 10 mg tablets in a dose 10 mg PO PER PKG DIR #48 ea 10/21/20 pack prednisone 50 mg tablet 50 mg PO DAILY #4 tab 12/11/20 clonidine HCl 0.1 mg tablet 0.1 mg PO TID 7 Days #21 tab 03/01/21 buprenorphine 2 mg-naloxone 0.5 mg 3 film BUCCAL DAILY 3 Days #9 ea 03/08/21 sublingual film (Suboxone) hydroxyzine pamoate 25 mg capsule 25 mg PO TID PRN 7 Days #21 cap 04/19/21 (Vistaril) amoxicillin 875 mg-potassium 1 tab PO BID #14 tab 05/24/21 clavulanate 125 mg tablet (Augmentin) mometasone 50 mcg/actuation nasal 2 spray INTRANASAL DAILY #17 g 05/24/21 spray (Nasonex) azithromycin 250 mg tablet See Rx Instructions .ROUTE 08/19/21 .COMPLEX #6 tab ibuprofen 800 mg tablet 800 mg PO Q8H PRN #20 tab 08/19/21 Allergies Allergy/AdvReac Type Severity Reaction Status Date / Time prochlorperazine Allergy Mild MUSCLE Verified 08/19/21 13:20 [From COMPAZINE] CONTRACTIONS Compazine Allergy Unknown Shakiness Uncoded 08/19/21 13:20 Review of Systems Review of Systems: Yes all other systems are reviewed and are negative Constitutional: Constitutional: Reports no additional constitutional compl aints, Reports body ache(s), Reports chills, Denies fever(s), Denies headache(s) and Denies weakness Eyes: Eyes: Reports no additional eye complaints and Denies change in vision ENT: Reports system reviewed and no additional complaints, except as documented, Denies dizziness, Denies headache(s), Reports nasal congestion, Denies nasal discharge, Denies neck pain, Reports sinus pain and Reports sinus pressure Cardiovascular: Cardiovascular: Reports no additional cardiovascular complaints, Denies chest pain, Denies leg edema and Denies dyspnea Respiratory: Respiratory: Reports no additional respiratory complaints, Reports cough and Denies dyspnea Gastrointestinal: Gastrointestinal: Reports no additional gastrointestinal complaints, Denies abdominal pain, Denies diarrhea, Denies nausea and Denies vomiting Genitourinary: Genitourinary: Reports no additional female genitourinary complaints and Denies urinary incontinence Musculoskeletal: Musculoskeletal: Reports no additional musculoskeletal complaints, Denies back pain, Denies arthralgias, Denies joint swelling, Denies neck pain, Denies numbness and Denies tingling Integumentary/Breasts: Skin/Breast: Reports system reviewed and no additional complaints, except as docu and Denies rash Neurologic: Reports system reviewed and no additional complaints, except as documented, Denies Abnormal speech present, Denies dizziness, Denies headache(s), Denies numbness, Denies tingling and Denies weakness PMF Past Medical History Attestation statement: The following information was validated with the patient. Source: old records reviewed and nursing notes reviewed Medical History Asthma Hypothyroidism Opioid use disorder Social History Social History Alcohol intake: never Substance Use Type: Marijuana Advance Directives: No Advance Directives Information Provided: No Patient : No Physical Exam Vital Signs: Vital Signs: Last Vital Signs Temp 98.0 F 08/19/21 13:18 Pulse 87 08/19/21 13:18 Resp 17 08/19/21 14:25 BP 104/61 08/19/21 13:18 Pulse Ox 99 08/19/21 13:18 BMI result Body Mass Index 24.3 Const: General: cooperative, healthy appearing, comfortable and no acute distress Orientation/consciousness: patient oriented x3 Limitations: no li mitations HENMT: Head: Yes normal to inspection Ears: hearing grossly normal bilaterally and TM's normal bilaterally General nose exam: Normal external nose present Face and sinus: Yes normal facial exam, Yes sinus tenderness and Yes other (Bilateral nasal turbinate erythema and swelling) Mouth: Normal oral and palatal mucosa present Throat: Yes posterior oropharynx normal, Yes tonsils normal and Yes uvula midline Eyes: General: appearance normal, both eyes and all related structures Pupils: Equal, round and reactive pupils present Neck: Neck: Yes normal visual inspection, Yes full ROM, Yes no lymphadenopathy and Yes no meningeal signs Chest: Chest palpation & inspection: normal inspection of the chest Resp: Effort & Inspection: normal respiratory effort Auscultation: clear to auscultation bilaterally Cardio: Rate: regular rate Rhythm: regular rhythm Peripheral pulses: Peripheral pulses 2+ throughout GI: Inspection: Yes normal to inspection Palpation (GI): Soft to palpation and nontender Auscultation: normal bowel sounds Back/Spine/Pelvis: Thoracic/Lumbar Spine: thoracic and lumbar spine normal to inspection Skin: General skin exam: no rashes or lesions noted Neuro: General: patient oriented x3, no meningeal signs, no focal motor deficits and normal sensation to monofilament Cranial nerves: Yes Equal, round and reactive pupils present Cognition (Neuro): normal cognition S peech: No Abnormal speech present Gait exam (Neuro): Normal gait present Motor exam (neuro): 5/5 motor strength present throughout Extrem: General: Yes normal to inspection, Yes no pedal edema and Yes no calf tenderness Course Course Course Narrative: 35-year-old female here with several days of cough, chills, body aches, nasal congestion, sinus pressure and pain. Will check COVID, flu, RSV swab, chest x-ray. 1500-testing for flu, RSV and COVID are negative. Chest x-ray shows no acute finding. Continued flu-like symptoms. ?withdrawal symptoms. Patient has history of substance abuse but denies current IV drug use. She tells me she has been sober and not using recently. Will check labs, HIV panel. Patient denies any history of same. 1640-labs are unremarkable. Patient likely has sinusitis. I did explain her that her HIV testing is pending and we will call her of these results are positive. Reviewed worrisome signs and symptoms and when to return to the emergency department. Comfortable discharge home. Medical Decision Making Medical Records Medical records reviewed: Yes I reviewed the patient's medical records. Lab Data Lab results reviewed: Yes I reviewed the patient's lab results. Result diagrams: 08/19/21 15:18 08/19/21 15:18 Labs: Lab Results 08/19/21 08/19/21 08/19/21 Range/Units 12:46 13:44 15:18 WBC 6.3 (4.8-10.8) X10*3/uL RBC 3.71 L (4.20-5.50) X10*6/uL Hgb 12.2 (12.0-16.0) g/dl Hct 36.5 L (37.0-47.0) % MCV 98.4 H (80.0-98.0) fL MCH 32.9 (27.0-33.0) pg MCHC 33.4 (31.0-35.0) g/dl RDW 12.5 (11.0-16.0) % Plt Count 271 (160-400) X10*3/uL MPV 8.7 L (9.4-12.3) fL Immature Gran % (Auto) 0.2 (0.0-0.4) % Neut % (Auto) 64.9 (45-73) % Lymph % (Auto) 14.4 L (20-40) % [place] % (Auto) 5.4 (2-11) % Eos % (Auto) 14.3 H (0-4) % Baso % (Auto) 0.8 (0-2) % Lymph # (Auto) 0.9 L (1.2-4.9) X10*3/uL [place] # (Auto) 0.3 (0.1-1.2) X10*3/uL Eos # (Auto) 0.9 H (0.0-0.4) X10*3/uL Baso # (Auto) 0.1 (0.0-0.2) X10*3/uL Abs Immat Gran (auto) 0.01 (0.00-0.03) X10*3/uL Absolute Neuts (auto) 4.1 (2.0-8.3) x10*3/uL Absolute Nucleated RBC 0.000 (0.0-0.012) X10*3/uL Nucleated RBC % (auto) 0.0 (0.0-0.2) /100WBC Sodium (135-145) mmol/L Potassium (3.3-5.1) mmol/L Chloride (96-108) mmol/L Carbon Dioxide (22-29) mmol/L Anion Gap (12-20) BUN (9-16) mg/dL Creatinine (0.5-1.4) mg/dL Estim Creat Clear Calc Estimated GFR Random Glucose (60-115) mg/dL Calcium (8.4-10.2) mg/dL Total Bilirubin (0.0-1.0) mg/dL Direct Bilirubin (0.0-0.5) mg/dL AST (5-31) U/L ALT (0-31) U/L Alkaline Phosphatase (39-117) U/L C-Reactive Protein (< or = 0.50) mg/dL Total Protein (6.5-8.0) g/dL Albumin (3.5-5.0) g/dL COVID-19 (JOSE MARTIN) Negative (Negative) COVID-19 Clin Com See Note Influenza Type A (PCR) NEGATIVE (Negative) Influenza Type B (PCR) NEGATIVE (Negative) RSV RNA Qual (PCR) NEGATIVE (Negative) SARS-CoV-2 RNA (RT-PCR) NEGATIVE (Negative) 08/19/21 Range/Units 15:18 WBC (4.8-10.8) X10*3/uL RBC (4.20-5.50) X10*6/uL Hgb (12.0-16.0) g/dl Hct (37.0-47.0) % MCV (80.0-98.0) fL MCH (27.0-33.0) pg MCHC (31.0-35.0) g/dl RDW (11.0-16.0) % Plt Count (160-400) X10*3/uL MPV (9.4-12.3) fL Immature Gran % (Auto) (0.0-0.4) % Neut % (Auto) (45-73) % Lymph % (Auto) (20-40) % [place] % (Auto) (2-11) % Eos % (Auto) (0-4) % Baso % (Auto) (0-2) % Lymph # (Auto) (1.2-4.9) X10*3/uL [place] # (Auto) (0.1-1.2) X10*3/uL Eos # (Auto) (0.0-0.4) X10*3/uL Baso # (Auto) (0.0-0.2) X10*3/uL Abs Immat Gran (auto) (0.00-0.03) X10*3/uL Absolute Neuts (auto) (2.0-8.3) x10*3/uL Absolute Nucleated RBC (0.0-0.012) X10*3/uL Nucleated RBC % (auto) (0.0-0.2) /100WBC Sodium 138 (135-145) mmol/L Potassium 4.4 (3.3-5.1) mmol/L Chloride 106 (96-108) mmol/L Carbon Dioxide 25 (22-29) mmol/L Anion Gap 11 L (12-20) BUN 16 (9-16) mg/dL Creatinine 0.79 (0.5-1.4) mg/dL Estim Creat Clear Calc 96.6 Estimated GFR > 60 Random Glucose 91 (60-115) mg/dL Calcium 9.5 (8.4-10.2) mg/dL Total Bilirubin 1.1 H (0.0-1.0) mg/dL Direct Bilirubin 0.4 (0.0-0.5) mg/dL AST 19 (5-31) U/L ALT 14 (0-31) U/L Alkaline Phosphatase 53 D (39-117) U/L C-Reactive Protein 0.59 H (< or = 0.50) mg/dL Total Protein 8.1 H (6.5-8.0) g/dL Albumin 4.3 (3.5-5.0) g/dL COVID-19 (JOSE MARTIN) (Negative) COVID-19 Clin Com Influenza Type A (PCR) (Negative) Influenza Type B (PCR) (Negative) RSV RNA Qual (PCR) (Negative) SARS-CoV-2 RNA (RT-PCR) (Negative) Imaging Data Chest x-ray: Attestation: I personally reviewed and interpreted this imaging study as follows: Radiologist's impression: [address] [address] XRay Report Signed Patient: Yessenia Davies MR#: [id number] : 1985 Acct:[id number] Age/Sex: 35 / F ADM Date: 08/19/21 Loc: .ED Attending Dr: Ordering Physician: Marlen Galaviz NP Date of Service: 08/19/21 Procedure(s): XR chest 2V Accession Number(s): [id number] cc: Marlen Galaviz NP~ EXAMINATION: XR CHEST CLINICAL INFORMATION: Cough, fever. COMPARISON: Chest radiograph 10/21/2020. TECHNIQUE: 2 views of the chest were obtained. FINDINGS: Normal appearance of the cardiomediastinal structures. No effusions or pneumothoraces. Lungs clear. XR/XR chest 2V IMPRESSION: *No acute cardiopulmonary abnormalities. Discharge Plan Discharge Clinical Impression: Sinusitis Patient Disposition: Home, Self-Care Instructions: Sinusitis (ED) Additional Instructions: Your chest x-ray, lab work and COVID testing are negative Prescriptions: New azithromycin 250 mg tablet See Rx Instructions .ROUTE .COMPLEX Qty: 6 RF: 0 ibuprofen 800 mg tablet 800 mg PO Q8H PRN (Reason: pain) Qty: 20 RF: 0 No Action buprenorphine-naloxone [Suboxone] 2-0.5 mg film 3 film buccal DAILY 3 Days Qty: 9 RF: 0 ondansetron 4 mg tablet,disintegrating 4 mg PO Q8H PRN (Reason: nausea and vomiting) Qty: 20 RF: 0 prednisone 50 mg tablet 50 mg PO DAILY Qty: 4 RF: 0 prednisone 10 mg tablets,dose pack 10 mg PO PER PKG DIR Qty: 48 RF: 0 benzonatate [Tessalon Perles] 100 mg capsule 100 mg PO TID PRN (Reason: cough) Qty: 10 RF: 0 albuterol sulfate 90 mcg/actuation HFA aerosol inhaler 1 inh inhalation QID PRN (Reason: shortness of breath or wheezing) Qty: 6.7 RF: 0 albuterol sulfate 0.63 mg/3 mL solution for nebulization 0.63 mg inhalation Q4-6H PRN (Reason: shortness of breath or wheezing) Qty: 75 RF: 0 amoxicillin-pot clavulanate [Augmentin] 875-125 mg tablet 1 tab PO BID Qty: 14 RF: 0 mometasone [Nasonex] 50 mcg/actuation spray,non-aerosol 2 spray intranasal DAILY Qty: 17 RF: 0 clonidine HCl 0.1 mg tablet 0.1 mg PO TID 7 Days Qty: 21 RF: 0 hydroxyzine pamoate [Vistaril] 25 mg capsule 25 mg PO TID PRN (Reason: itching) 7 Days Qty: 21 RF: 0 Referrals: Physician,Unknown J [Primary Care Provider] - 2 days Stand Alone Forms: Work/School Release Interventions: ED Discharge Assessment Last Done: 08/19/21 16:05 Discharge Date/Time: 08/19/21 16:05
[2021-08-19] MEDS: Ibuprofen 800 MG TABLET PO (13:47)
[2021-08-19 14:25] VITALS: RESP 17
[2021-08-19 14:30] LABS: Influenza A PCR NEGATIVE (Negative); Influenza B PCR NEGATIVE (Negative); Resp Syncy Virus RNA Qual PCR NEGATIVE (Negative); SARS COV2 PCR INHOUSE NEGATIVE (Negative)
[2021-08-19 15:26] LABS: MANUAL DIFF FLAG NO
[2021-08-19 15:29] LABS: Basophils Absolute Auto 0.1 X10*3/uL (0.0-0.2); Basophils Percent Auto 0.8 % (0-2); Eosinophils Absolute Auto 0.9 X10*3/uL (0.0-0.4); Eosinophils Percent Auto 14.3 % (0-4); Hematocrit 36.5 % (37.0-47.0); Hemoglobin 12.2 g/dl (12.0-16.0); Imm Gran Abs Auto 0.01 X10*3/uL (0.00-0.03); Imm Gran Pct Auto 0.2 % (0.0-0.4); Lymphocytes Absolute Auto 0.9 X10*3/uL (1.2-4.9); Lymphocytes Percent Auto 14.4 % (20-40); Mean Corpuscular HGB Conc 33.4 g/dl (31.0-35.0); Mean Corpuscular Hemoglobin 32.9 pg (27.0-33.0); Mean Corpuscular Volume 98.4 fL (80.0-98.0); Mean Platelet Volume 8.7 fL (9.4-12.3); Monocytes Absolute Auto 0.3 X10*3/uL (0.1-1.2); Monocytes Percent Auto 5.4 % (2-11); Neutrophils Absolute Auto 4.1 x10*3/uL (2.0-8.3); Neutrophils Percent Auto 64.9 % (45-73); Platelet Count 271 X10*3/uL (160-400); Red Blood Count 3.71 X10*6/uL (4.20-5.50); Red Cell Distribution Width 12.5 % (11.0-16.0); White Blood Count 6.3 X10*3/uL (4.8-10.8)
[2021-08-19 15:43] LABS: Alanine Aminotransferase 14 U/L (0-31); Albumin Level 4.3 g/dL (3.5-5.0); Alkaline Phosphatase 53 U/L (39-117); Anion Gap 11 (12-20); Aspartate Amino Transferase 19 U/L (5-31); Bilirubin Direct 0.4 mg/dL (0.0-0.5); Bilirubin Total 1.1 mg/dL (0.0-1.0); Blood Urea Nitrogen 16 mg/dL (9-16); C Reactive Protein 0.59 mg/dL (< or = 0.50); Calcium 9.5 mg/dL (8.4-10.2); Carbon Dioxide 25 mmol/L (22-29); Chloride 106 mmol/L (96-108); Creatinine Clr Calc Pharmacy 96.6; Estimated Glomerular Filt Rate > 60; Glucose Random 91 mg/dL (60-115); Potassium 4.4 mmol/L (3.3-5.1); Sodium 138 mmol/L (135-145); Total Protein 8.1 g/dL (6.5-8.0)
[2021-08-22 07:55] LABS: HIV AB/AG Nonreactive (Nonreactive); HIV Num 1 0.08 S/CO (0.00-0.99)
== END 2021-08-19 16:05 | disposition home or self-care (01) ==
PROVIDERS: Nurse Practitioner Family; Emergency Provider Emergency Medicine
DX: J32.9 Chronic sinusitis, unspecified (principal); Z20.822 Contact with and (suspected) exposure to COVID-19; F11.99 Opioid use, unspecified with unspecified opioid-induced disorder; J45.909 Unspecified asthma, uncomplicated
CPT/HCPCS: 0241U; 36415; 71046; 80048; 80076; 85025; 86140; 87389; 87635; 99283

== ENCOUNTER 2021-09-14 09:54 | Emergency (ER) | payer MEDICAID, SELFPAY ==
--- NOTE | ~2021-09-14 | XR_ITS ---
EXAMINATION: XR CHEST CLINICAL INFORMATION: Cough and shortness of breath COMPARISON: Previous chest x-ray most recent July 2021 TECHNIQUE: 2 views of the chest were obtained. FINDINGS: The cardiac and mediastinal contours are normal. The lungs are well inflated. The lungs are clear. There is no pleural effusion or pneumothorax. No acute bone abnormality. Mild curvature of the lower thoracic spine to the left. XR/XR chest 2V IMPRESSION: No evidence for acute disease in the chest.
[2021-09-14 10:05] VITALS: BP 115/64; PULSE 64; RESP 20; TEMP 36.6; O2SAT 98; BMI 25.8
[2021-09-14 12:17] LABS: COVID-19 Test Negative (Negative)
--- NOTE | 2021-09-14 12:17 | ED.URI ---
HPI - URI/Sore Throat General Chief Complaint: Upper Respiratory Symptoms Stated Complaint: Asthma Time Seen by Provider: 09/14/21 12:01 Source: patient Mode of arrival: ambulatory Limitations: no limitations History of Present Illness HPI Narrative: 35-year-old female who presents emergency department for evaluation of shortness of breath-asthma exacerbation. The patient states that her asthma has been acting up over the past week. She states she has had a cough which is mainly nonproductive. She has been feeling short of breath and having dyspnea on exertion. She has used her albuterol nebulizer 3 to 4 times a day and her ProAir albuterol inhaler 10 times a day with only minimal relief for symptoms. She denied chest pain, fever, chills, myalgias, arthralgias, diarrhea, loss of sense of taste or smell. The patient received the 2 shot Pfizer COVID 19 vaccination and states she is scheduled to get her booster shot. Related Data Previous Rx's Medication Instructions Recorded ondansetron 4 mg disintegrating 4 mg PO Q8H PRN #20 tab 06/24/20 tablet albuterol sulfate 0.63 mg/3 mL 0.63 mg (3 mL) INHALATION Q4-6H 10/21/20 solution for nebulization PRN #75 ml albuterol sulfate 90 mcg/actuation 1 inh INHALATION QID PRN #6.7 g 10/21/20 aerosol inhaler benzonatate 100 mg capsule 100 mg PO TID PRN #10 cap 10/21/20 (Tesgely Sinclair) prednisone 10 mg tablets in a dose 10 mg PO PER PKG DIR #48 ea 10/21/20 pack prednisone 50 mg tablet 50 mg PO DAILY #4 tab 12/11/20 clonidine HCl 0.1 mg tablet 0.1 mg PO TID 7 Days #21 tab 03/01/21 buprenorphine 2 mg-naloxone 0.5 mg 3 film BUCCAL DAILY 3 Days #9 ea 03/08/21 sublingual film (Suboxone) hydroxyzine pamoate 25 mg capsule 25 mg PO TID PRN 7 Days #21 cap 04/19/21 (Vistaril) amoxicillin 875 mg-potassium 1 tab PO BID #14 tab 05/24/21 clavulanate 125 mg tablet (Augmentin) mometasone 50 mcg/actuation nasal 2 spray INTRANASAL DAILY #17 g 05/24/21 spray (Nasonex) azithromycin 250 mg tablet See Rx Instructions .ROUTE 08/19/21 .COMPLEX #6 tab ibuprofen 800 mg tablet 800 mg PO Q8H PRN #20 tab 08/19/21 prednisone 20 mg tablet 60 mg PO DAILY 5 Days #15 tab 09/14/21 Allergies Allergy/AdvReac Type Severity Reaction Status Date / Time prochlorperazine Allergy Mild MUSCLE Verified 08/19/21 13:20 [From COMPAZINE] CONTRACTIONS Compazine Allergy Unknown Shakiness Uncoded 08/19/21 13:20 Review of Systems Review of Systems: Yes all other systems are reviewed and are negative Neurologic: Reports Abnormal speech present [facility] Past Medical History [facility] Narrative: Social history: The patient denies tobacco use. She denies alcohol use. She occasionally smokes marijuana. She is a former opiate user and she is on Suboxone. Medical History Asthma Hypothyroidism Opioid use disorder Social History Social History Alcohol intake: never Substance Use Type: Marijuana Advance Directives: No Advance Directives Information Provided: No Patient : No Physical Exam Vital Signs: Vital Signs: Last Vital Signs Temp 98 F 09/14/21 10:05 Pulse 64 09/14/21 10:05 Resp 20 09/14/21 10:05 BP 115/64 09/14/21 10:05 Pulse Ox 98 09/14/21 10:05 BMI result Body Mass Index 25.8 Const: General: cooperative, no acute distress, well developed, alert and awake Orientation/consciousness: oriented to person HENMT: Head: Yes normal to inspection, Yes normocephalic and Yes atraumatic Ears: hearing grossly normal bilaterally General nose exam: Normal external nose present Face and sinus: Yes normal facial exam Mouth: Normal oral and palatal mucosa present, lip normal, tongue normal, oropharynx normal and moist mucous membranes Throat: Yes posterior oropharynx normal, Yes tonsils normal and Yes uvula midline Eyes: General: appearance normal, both eyes and all related structures Eyelids: Yes eyelids normal Conjunctivae: conjunctivae normal Sclerae: sclerae normal Corneas: corneas normal Pupils: Equal, round and reactive pupils present Neck: Neck: Yes normal visual inspection, Yes no lymphadenopathy, Yes trachea midline and Yes supple Thyroid: Thyroid normal Lymphatic: no lymphadenopathy noted Chest: Chest palpation & inspection: normal inspection of the chest and normal palpation of entire chest wall Resp: Effort & Inspection: normal respiratory effort and able to speak in complete sentences Auscultation: wheezes (Diffuse wheezing) Cardio: Rate: regular rate Rhythm: regular rhythm Heart sounds: S1 normal heart sound present, S2 normal heart sound present and no murmurs GI: Inspection: Yes normal to inspection Palpation (GI): Soft to palpation, nontender and No hepatosplenomegaly present Auscultation: normal bowel sounds : General: Yes no CVA tenderness Back/Spine/Pelvis: Back: no CVA tenderness Thoracic/Lumbar Spine: thoracic and lumbar spine normal to inspection Skin: General skin exam: no rashes or lesions noted, no erythema and no jaundice Lesions: no lesions Rashes: no rashes Trauma: no lacerations or abrasions Wounds: no wounds Neuro: General: oriented to person, moves all extremities and no focal motor deficits Cranial nerves: Yes Equal, round and reactive pupils present Cognition (Neuro): normal cognition Speech: Abnormal speech present Motor exam (neuro): Motor abnormalities not present Extrem: General: Yes normal to inspection, Yes no pedal edema and Yes no calf tenderness Right upper extremity: normal to inspection Left upper extremity: normal to inspection Right lower extremity: normal to inspection Left lower extremity: normal to inspection Psych: Appearance: grossly normal Mental Status: mental status grossly normal Speech and movement: Normal speech and movement present Affect: normal affect Attitude: cooperative Thought process: Normal thought process present Insight: Good insight present (Psych) Course Course Course Narrative: 35-year-old female with history of asthma who presents emergency department for evaluation asthma exacerbation for approximately 1 week. Patient has had a nonproductive cough with no chest pain, she has had shortness of breath and dyspnea on exertion. She has been using her albuterol inhaler and nebulizer more frequently than usual with only minimal relief for symptoms. Patient's vital signs were normal. Lung exam did reveal diffuse wheezing. Chest x-ray revealed no evidence of pneumonia. COVID-19 test was negative. Patient most likely has a large inflammatory component to her asthma therefore she was started on prednisone 60 mg once a day for 5 days. She was given her 1st dose in the emergency department. She was given printed and verbal instructions and discharged home. Discharge Plan Discharge Clinical Impression: Asthma exacerbation Qualifiers: Asthma severity: moderate Asthma persistence: persistent Qualified Code(s): J45.41 - Moderate persistent asthma with (acute) exacerbation Patient Disposition: Home, Self-Care Instructions: Asthma (ED) Additional Instructions: Your chest x-ray was normal with no evidence of pneumonia. Your COVID-19 test was negative. Your symptoms are consistent with an exacerbation of your asthma with a large inflammatory component in your breathing tubes (bronchials). The you received prednisone 60 mg orally here in the emergency department. Start taking prednisone tomorrow 60 mg once a day for 5 days. Continue to use your inhaler and your nebulizer treatments. Follow-up with your doctor in 2 days. Please return to the emergency department if your symptoms get worse or if you develop any symptoms that are concerning to you. Prescriptions: New prednisone 20 mg tablet 60 mg PO DAILY 5 Days Qty: 15 RF: 0 No Action buprenorphine-naloxone [Suboxone] 2-0.5 mg film 3 film buccal DAILY 3 Days Qty: 9 RF: 0 ondansetron 4 mg tablet,disintegrating 4 mg PO Q8H PRN (Reason: nausea and vomiting) Qty: 20 RF: 0 prednisone 50 mg tablet 50 mg PO DAILY Qty: 4 RF: 0 prednisone 10 mg tablets,dose pack 10 mg PO PER PKG DIR Qty: 48 RF: 0 benzonatate [Tessalon Perles] 100 mg capsule 100 mg PO TID PRN (Reason: cough) Qty: 10 RF: 0 albuterol sulfate 90 mcg/actuation HFA aerosol inhaler 1 inh inhalation QID PRN (Reason: shortness of breath or wheezing) Qty: 6.7 RF: 0 albuterol sulfate 0.63 mg/3 mL solution for nebulization 0.63 mg inhalation Q4-6H PRN (Reason: shortness of breath or wheezing) Qty: 75 RF: 0 amoxicillin-pot clavulanate [Augmentin] 875-125 mg tablet 1 tab PO BID Qty: 14 RF: 0 mometasone [Nasonex] 50 mcg/actuation spray,non-aerosol 2 spray intranasal DAILY Qty: 17 RF: 0 azithromycin 250 mg tablet See Rx Instructions .ROUTE .COMPLEX Qty: 6 RF: 0 ibuprofen 800 mg tablet 800 mg PO Q8H PRN (Reason: pain) Qty: 20 RF: 0 clonidine HCl 0.1 mg tablet 0.1 mg PO TID 7 Days Qty: 21 RF: 0 hydroxyzine pamoate [Vistaril] 25 mg capsule 25 mg PO TID PRN (Reason: itching) 7 Days Qty: 21 RF: 0
[2021-09-14] MEDS: predniSONE 20 MG TABLET 60 MG PO (12:57)
== END 2021-09-14 12:59 | disposition home or self-care (01) ==
PROVIDERS: Emergency Provider Emergency Medicine Emergency Medical Services
DX: J45.41 Moderate persistent asthma with (acute) exacerbation (principal); J45.909 Unspecified asthma, uncomplicated; F12.90 Cannabis use, unspecified, uncomplicated; R06.02 Shortness of breath; Z20.822 Contact with and (suspected) exposure to COVID-19; Z79.899 Other long term (current) drug therapy
CPT/HCPCS: 71046; 87635; 99283

== ENCOUNTER 2021-10-31 17:22 | Emergency (ER) | payer MEDICAID, SELFPAY ==
--- NOTE | ~2021-10-31 | XR_ITS ---
EXAMINATION: XR CHEST CLINICAL INFORMATION: Shortness of breath COMPARISON: Chest x-ray 09/14/2021 TECHNIQUE: 2 views of the chest were obtained. FINDINGS: Cardiac silhouette is normal in size. The lungs are well aerated. There is no lobar consolidation. No pleural effusion or pneumothorax. Mild degenerative changes of the spine. XR/XR chest 2V IMPRESSION: No acute pulmonary pathology.
[2021-10-31 17:40] VITALS: BP 115/62; PULSE 88; RESP 24; TEMP 36.6; O2SAT 95; BMI 25.8
[2021-10-31 18:18] LABS: COVID-19 Test Negative (Negative); IDNOW Serial# 55D5AD1C
--- NOTE | 2021-10-31 18:41 | ED_ITS ---
HPI - General Adult General Chief complaint: Upper Respiratory Symptoms <LAWRENCE Grigsby - Last Filed: 10/31/21 21:47> Stated complaint: SOB <LAWRENCE Grigsby - Last Filed: 10/31/21 21:47> Time Seen by Provider: 10/31/21 17:53 <LAWRENCE Grigsby Last Filed: 10/31/21 21:47> Source: patient <LAWRENCE Grigsby Last Filed: 10/31/21 21:47> Mode of arrival: ambulatory <LAWRENCE Grigsby Last Filed: 10/31/21 21:47> Limitations: no limitations <LAWRENCE Grigsby Last Filed: 10/31/21 21:47> History of Present Illness HPI narrative: 35-year-old female past medical history significant for hypothyroidism, asthma, opiate use disorder presenting to the emergency department with complaints of shortness of breath x2 days progressively worsening. Patient tells me this feels like her typical asthma attack. Typically her asthma is w ell controlled and response to nebulizing treatments and inhalers however she tells me this time she feels very short of breath, worse with exertion. She has never required intubation for asthma. Patient tried nebulizer and albuterol inhaler at home with little to no relief. Patient denies chest pain, nausea, vomiting, fevers kill nose, cough, sore throat, constipation, diarrhea, weakness, lethargy, headache, dizziness. <LAWRENCE Grigsby Last Filed: 10/31/21 21:47> MD complaint: Shortness of breath <LAWRENCE Grigsby Last Filed: 10/31/21 21:47> Onset (ago): day(s) (2) <LAWRENCE Grigsby Last Filed: 10/31/21 21:47> Relieving factors: none <LAWRENCE Grigsby Last Filed: 10/31/21 21:47> Exacerbating factors: none <LAWRENCE Grigsby Last Filed: 10/31/21 21:47> Associated symptoms: denies other symptoms <LAWRENCE Grigsby Last Filed: 10/31/21 21:47> Treatments prior to arrival: none <LAWRENCE Grigsby - Last Filed: 10/31/21 21:47> Related Data Home medications: Previous Rx's Medication Instructions Recorded ondansetron 4 mg disintegrating 4 mg PO Q8H PRN #20 tab 06/24/20 tablet albuterol sulfate 0.63 mg/3 mL 0.63 mg (3 mL) INHALATION Q4-6H 10/21/20 solution for nebulization PRN #75 ml albuterol sulfate 90 mcg/actuation 1 inh INHALATION QID PRN #6.7 g 10/21/20 aerosol inhaler benzonatate 100 mg capsule 100 mg PO TID PRN #10 cap 10/21/20 (Vera Sinclair) prednisone 10 mg tablets in a dose 10 mg PO PER PKG DIR #48 ea 10/21/20 pack prednisone 50 mg tablet 50 mg PO DAILY #4 tab 12/11/20 clonidine HCl 0.1 mg tablet 0.1 mg PO TID 7 Days #21 tab 03/01/21 buprenorphine 2 mg-naloxone 0.5 mg 3 film BUCCAL DAILY 3 Days #9 ea 03/08/21 sublingual film (Suboxone) hydroxyzine pamoate 25 mg capsule 25 mg PO TID PRN 7 Days #21 cap 04/19/21 (Vistaril) amoxicillin 875 mg-potassium 1 tab PO BID #14 tab 05/24/21 clavulanate 125 mg tablet (Augmentin) mometasone 50 mcg/actuation nasal 2 spray INTRANASAL DAILY #17 g 05/24/21 spray (Nasonex) azithromycin 250 mg tablet See Rx Instructions .ROUTE 08/19/21 .COMPLEX #6 tab ibuprofen 800 mg tablet 800 mg PO Q8H PRN #20 tab 08/19/21 prednisone 20 mg tablet 60 mg PO DAILY 5 Days #15 tab 09/14/21 albuterol sulfate 90 mcg/actuation 2 inh INHALATION Q4-6H PRN #1 ea 10/31/21 breath activated powder inhaler prednisone 20 mg tablet 40 mg PO DAILY 5 Days #10 tab 10/31/21 <LAWRENCE Grigsby - Last Filed: 10/31/21 21:47> Allergies/adverse reactions: Allergies Allergy/AdvReac Type Severity Reaction Status Date / Time prochlorperazine Allergy Mild MUSCLE Verified 08/19/21 13:20 [From COMPAZINE] CONTRACTIONS Compazine Allergy Unknown Shakiness Uncoded 08/19/21 13:20 <LAWRENCE Grigsby - Last Filed: 10/31/21 21:47> Review of Systems Review of Systems: Constitutional : No Weight loss, No Fever, No Chills, No Fatigue, No Malaise ENT/Mouth : No sore throat, No Rhinorrhea Eyes: No Eye Pain, No Swelling, No Redness Cardiovascular : No Chest Pain, + SOB, No Dyspnea on Exertion, No Orthopnea, No Edema, No Palpitations Respiratory : No Cough, No Sputum, No Wheezing Gastrointestinal : No Nausea, No Vomiting, No Diarrhea, No Constipation, No abdominal Pain, No Hematochezia, No Melena Genitourinary : No Dysuria, No Urinary Frequency, No Hematuria, Musculoskeletal : No joint pain, No Myalgias, No Joint Swelling Skin : No Skin Lesions, No rash Neuro : No Weakness, No Numbness, No Dizziness, No Headache Psych : No Anxiety/Panic, No Depression All other systems reviewed and are negative <LAWRENCE Grigsby - Last Filed: 10/31/21 21:47> Yes all other systems are reviewed and are negative <LAWRENCE Grigsby - Last Filed: 10/31/21 21:47> [facility] Past Medical History Attestation statement: The following information was validated with the patient. <LAWRENCE Grigsby - Last Filed: 10/31/21 21:47> Source: old records reviewed and nursing notes reviewed <LAWRENCE Grigsby - Last Filed: 10/31/21 21:47> Medical History: Medical History Asthma Hypothyroidism Opioid use disorder <LAWRENCE Grigsby Last Filed: 10/31/21 21:47> Social History Social History: Social History Alcohol intake: never Substance Use Type: Marijuana Advance Directives: No Advance Directives Information Provided: No Patient : No <LAWRENCE Grigsby - Last Filed: 10/31/21 21:47> Physical Exam ED Vital Signs: Vital Signs - 24 hr 10/31/21 17:40 10/31/21 19:16 10/31/21 20:15 Temperature 98 F 98.2 F Pulse Rate 88 76 87 Respiratory Rate 24 H 13 14 Blood Pressure 115/62 106/68 Pulse Oximetry 95 98 10/31/21 21:28 Temperature Pulse Rate 78 Respiratory Rate 12 Blood Pressure Pulse Oximetry BMI result Body Mass Index 25.8 Vital signs stable <LAWRENCE Grigsby - Last Filed: 10/31/21 21:47> Appearance: Alert.? Oriented X3.? No acute distress.? Head: Normocephalic, atraumatic, no step-offs or deformities Eyes: Pupils equal, round and reactive to light.? ENT: Pharynx normal.? Neck: Normal inspection.? Neck supple.? CVS: Normal heart rate and rhythm.? Pulses normal.? Respiratory: No respiratory distress.? + wheezing throughout. Diminished breath sounds bilaterally. Abdomen: Soft and nontender.? Skin: Skin warm and dry.? Normal skin color.? Normal skin turgor.? Extremities: No lower extremity edema.? No calf ttp. 5/5 strength to bilateral upper and lower extremities Back: No midline tenderness, no C-spine tenderness, full range of motion, no CVA tenderness bilaterally Neuro: Oriented X 3.? No motor deficit.? No sensory deficit. CN 2-12 intact <LAWRENCE Grigsby Last Filed: 10/31/21 21:47> Course Reevaluation(s) Reevaluation #1: Chest x-ray with no acute pulmonary pathology. COVID negative. Pending influenza swab. This is likely an asthma exacerbation. <LAWRENCE Grigsby Last Filed: 10/31/21 21:47> Time: 21:43 <LAWRENCE Grigsby Last Filed: 10/31/21 21:47> Reevaluation #2: Patient with significant improvement after 2 DuoNebs and Solu-Medrol. Patient tells me she feels much better. Faint wheezing noted however patient no acute distress. Vital signs are stable saturating well on room air even after ambulation. At this time patient will be discharged home with an albuterol inhaler and prednisone course. Advised to return with new or worsening symptoms. <LAWRENCE Grigsby - Last Filed: 10/31/21 21:47> Time: 21:44 <LAWRENCE Grigsby - Last Filed: 10/31/21 21:47> Medical Decision Making MDM Narrative Medical decision making narrative: 1849 35 yo f presents w/ asthma attack not responding to nebulizing albuterol treatments at home or albuterol. This has been going on for 2 days worsening. Physical examination significant for diminished breath sounds bilaterally and wheezing throughout. Negative Oren bilaterally. History and physical examination consistent with acute asthma exacerbation. Unlikely PE. Unlikely pneumonia no crackles, fevers or chills. Plan at this time COVID, flu, chest x-ray <LAWRENCE Grigsby - Last Filed: 10/31/21 21:47> Medical Records Medical records reviewed: Yes I reviewed the patient's medical records. <LAWRENCE Grigsby - Last Filed: 10/31/21 21:47> Lab Data Lab results reviewed: Yes I reviewed the patient's lab results. <LAWRENCE Grigsby - Last Filed: 10/31/21 21:47> Labs: Lab Results 10/31/21 10/31/21 Range/Units 17:53 19:27 COVID-19 (JOSE MARTIN) Negative (Negative) COVID-19 Clin Com See Note Influenza Type A (FREEDOM) Negative (Negative) Influenza Type B ([facility]OM) Negative (Negative) Influenza A & B Note See Note <LAWRENCE Grigsby - Last Filed: 10/31/21 21:47> Critical Care Time Critical Care Time Critical Care Time: No <LAWRENCE Grigsby - Last Filed: 10/31/21 21:47> Discharge Plan Discharge Clinical Impression: Asthma <LAWRENCE Grigsby - Last Filed: 10/31/21 21:47> Patient Disposition: Home, Self-Care <LAWRENCE Grigsby - Last Filed: 10/31/21 21:47> Instructions: Asthma (ED), How to Use a Dry-Powder Inhaler (ED), How to Use a Breath- Activated Inhaler (ED), Wheezing (ED) <LAWRENCE Grigsby - Last Filed: 10/31/21 21:47> Additional Instructions: Take your medications as prescribed. If you were prescribed antibiotics today, it is important that you take your medication to their entirety, do not skip any doses, do not finish them early. Follow-up with your primary care provider this week. Return to the emergency department with new or worsening symptoms. Such as fevers, chills, chest pain, shortness of breath, nausea, vomiting, dizziness, headache, vision changes, lethargy In case of emergency call 911 <LAWRENCE Grigsby - Last Filed: 10/31/21 21:47> Prescriptions: New prednisone 20 mg tablet 40 mg PO DAILY 5 Days Qty: 10 0RF albuterol sulfate 90 mcg/actuation aerosol powdr breath activated 2 inh inhalation Q4-6H PRN (Reason: shortness of breath) Qty: 1 0RF No Action buprenorphine-naloxone [Suboxone] 2-0.5 mg film 3 film buccal DAILY 3 Days Qty: 9 0RF ondansetron 4 mg tablet,disintegrating 4 mg PO Q8H PRN (Reason: nausea and vomiting) Qty: 20 0RF prednisone 50 mg tablet 50 mg PO DAILY Qty: 4 0RF Rx Instructions: Start 12/12/2020 prednisone 10 mg tablets,dose pack 10 mg PO PER PKG DIR Qty: 48 0RF benzonatate [Tessalon Perles] 100 mg capsule 100 mg PO TID PRN (Reason: cough) Qty: 10 0RF albuterol sulfate 90 mcg/actuation HFA aerosol inhaler 1 inh inhalation QID PRN (Reason: shortness of breath or wheezing) Qty: 6.7 0RF albuterol sulfate 0.63 mg/3 mL solution for nebulization 0.63 mg inhalation Q4-6H PRN (Reason: shortness of breath or wheezing) Qty: 75 0RF amoxicillin-pot clavulanate [Augmentin] 875-125 mg tablet 1 tab PO BID Qty: 14 0RF mometasone [Nasonex] 50 mcg/actuation spray,non-aerosol 2 spray intranasal DAILY Qty: 17 0RF Rx Instructions: administer into each nostril azithromycin 250 mg tablet See Rx Instructions .ROUTE .COMPLEX Qty: 6 0RF Rx Instructions: For 250 mg dose pack: take 500 mg today (day 1), then 250 mg for 4 days (days 2-5) ibuprofen 800 mg tablet 800 mg PO Q8H PRN (Reason: pain) Qty: 20 0RF prednisone 20 mg tablet 60 mg PO DAILY 5 Days Qty: 15 0RF clonidine HCl 0.1 mg tablet 0.1 mg PO TID 7 Days Qty: 21 0RF hydroxyzine pamoate [Vistaril] 25 mg capsule 25 mg PO TID PRN (Reason: itching) 7 Days Qty: 21 0RF <LAWRENCE Grigsby - Last Filed: 10/31/21 21:47> Referrals: Amarilys London NP [Primary Care Provider] - 2 days <LAWRENCE Grigsby - Last Filed: 10/31/21 21:47> Stand Alone Forms: Work/School Release <LAWRENCE Grigsby - Last Filed: 10/31/21 21:47>
[2021-10-31] MEDS: methylPREDNISolone Sod Succ 125 MG/2 ML VIAL IVPUSH (19:06)
[2021-10-31 19:14] VITALS: PULSE 70
[2021-10-31 19:16] VITALS: PULSE 76; RESP 13; O2SAT 94
[2021-10-31] MEDS: Albuterol/Iprat 2.5/0.5MG 3 ML AMPUL.NEB INHALE ×2 (19:16→21:28)
[2021-10-31 19:48] LABS: IDNOW Serial# 55D5AD1C; Influenza A Negative (Negative); Influenza B2 Negative (Negative)
[2021-10-31 20:15] VITALS: BP 106/68; PULSE 87; RESP 14; TEMP 36.8; O2SAT 98
[2021-10-31 21:28] VITALS: PULSE 78; RESP 12; O2SAT 98
== END 2021-10-31 22:02 | disposition home or self-care (01) ==
PROVIDERS: Physician Assistant Medical; Emergency Provider Internal Medicine; PCP Nurse Practitioner Family
DX: J45.909 Unspecified asthma, uncomplicated (principal); R06.02 Shortness of breath; Z20.822 Contact with and (suspected) exposure to COVID-19
CPT/HCPCS: 71046; 87502; 87635; 94640; 96374; 99284; J2930

== ENCOUNTER 2021-12-09 21:27 | Emergency (ER) | payer MEDICAID, SELFPAY ==
--- NOTE | ~2021-12-09 | XR_ITS ---
EXAMINATION: XR CHEST CLINICAL INFORMATION: Cough. Difficulty breathing. COMPARISON: 10/31/2021 TECHNIQUE: 2 views of the chest were obtained. FINDINGS: The lungs are hyperexpanded. There is no focal consolidation, edema, or effusion. No pneumothorax. The cardiomediastinal silhouette is within normal limits. No acute osseous abnormality. XR/XR chest 2V IMPRESSION: No acute pulmonary finding.
[2021-12-09 22:00] VITALS: BP 132/66; PULSE 84; RESP 20; TEMP 36.9; O2SAT 96; BMI 29.0
[2021-12-09 22:36] LABS: COVID-19 Test Negative (Negative); Influenza A Negative (Negative); Influenza B2 Negative (Negative)
[2021-12-10] MEDS: Albuterol Sulfate (0.083%) 2.5 MG/3 ML VIAL.NEB 10 MG INHALE ×2 (01:40→02:38)
[2021-12-10 01:49] VITALS: PULSE 98; RESP 18; O2SAT 95
--- NOTE | 2021-12-10 01:49 | ED_ITS ---
HPI - URI/Sore Throat General Chief Complaint: Upper Respiratory Symptoms Stated Complaint: Asthma Time Seen by Provider: 12/10/21 01:23 Source: patient Mode of arrival: ambulatory Limitations: no limitations History of Present Illness HPI Narrative: Patient comes emergency room complaining of an asthma exacerbation for the last 3 days. Patient complaining of wheezing, shortness of breath. No fever chills. Related Data Previous Rx's Medication Instructions Recorded ondansetron 4 mg disintegrating 4 mg PO Q8H PRN #20 tab 06/24/20 tablet albuterol sulfate 0.63 mg/3 mL 0.63 mg (3 mL) INHALATION Q4-6H 10/21/20 solution for nebulization PRN #75 ml albuterol sulfate 90 mcg/actuation 1 inh INHALATION QID PRN #6.7 g 10/21/20 aerosol inhaler benzonatate 100 mg capsule 100 mg PO TID PRN #10 cap 10/21/20 (Tesyairon Dottie) prednisone 10 mg tablets in a dose 10 mg PO PER PKG DIR #48 ea 10/21/20 pack prednisone 50 mg tablet 50 mg PO DAILY #4 tab 12/11/20 clonidine HCl 0.1 mg tablet 0.1 mg PO TID 7 Days #21 tab 03/01/21 buprenorphine 2 mg-naloxone 0.5 mg 3 film BUCCAL DAILY 3 Days #9 ea 03/08/21 sublingual film (Suboxone) hydroxyzine pamoate 25 mg capsule 25 mg PO TID PRN 7 Days #21 cap 04/19/21 (Vistaril) amoxicillin 875 mg-potassium 1 tab PO BID #14 tab 05/24/21 clavulanate 125 mg tablet (Augmentin) mometasone 50 mcg/actuation nasal 2 spray INTRANASAL DAILY #17 g 05/24/21 spray (Nasonex) azithromycin 250 mg tablet See Rx Instructions .ROUTE 08/19/21 .COMPLEX #6 tab ibuprofen 800 mg tablet 800 mg PO Q8H PRN #20 tab 08/19/21 prednisone 20 mg tablet 60 mg PO DAILY 5 Days #15 tab 09/14/21 albuterol sulfate 90 mcg/actuation 2 inh INHALATION Q4-6H PRN #1 ea 10/31/21 breath activated powder inhaler prednisone 20 mg tablet 40 mg PO DAILY 5 Days #10 tab 10/31/21 albuterol sulfate 90 mcg/actuation 2 puff INHALATION Q4-6H PRN #8.5 g 12/10/21 aerosol inhaler prednisone 50 mg tablet 50 mg PO DAILY #5 tab 12/10/21 Allergies Allergy/AdvReac Type Severity Reaction Status Date / Time prochlorperazine Allergy Mild MUSCLE Verified 08/19/21 13:20 [From COMPAZINE] CONTRACTIONS Compazine Allergy Unknown Shakiness Uncoded 08/19/21 13:20 Review of Systems Review of Systems: Constitutional : No Weight loss, No Fever, No Chills, No Night Sweats, No Fatigue, No Malaise ENT/Mouth : No Hearing loss, No Ear Pain, No Nasal Congestion, No Sinus Pain, No Hoarseness, No sore throat, No Rhinorrhea, No Swallowing Difficulty Eyes: No Eye Pain, No Swelling, No Redness, No Foreign Body, No Discharge, No Vision Changes Cardiovascular : No Chest Pain, No SOB, No Dyspnea on Exertion, No Orthopnea, No Edema, No Palpitations Respiratory : Complaining of cough, wheezing, shortness of breath Gastrointestinal : No Nausea, No Vomiting, No Diarrhea, No Constipation, No abdominal Pain, No Hematochezia, No Melena Genitourinary : no irregular bleeding, No Dysuria, No Urinary Frequency, No Hematuria, No Urinary Incontinence, No Urgency, No Flank Pain, No Urinary Flow Changes, No Hesitancy Musculoskeletal : No joint pain, No Myalgias, No Joint Swelling Skin : No Skin Lesions, No rash Neuro : No Weakness, No Numbness, No Paresthesias, No Loss of Consciousness, No Dizziness, No Headache Psych : No Anxiety/Panic, No Depression, No SI/HI/AH/VH, No Social Issues, Heme/Lymph: No Bruising, No Bleeding,No Lymphadenopathy Endocrine : No Polyuria, No Polydipsia, No Temperature Intolerance PMF Past Medical History Medical History Asthma Hypothyroidism Opioid use disorder Social History Social History Alcohol intake: never Substance Use Type: Marijuana Advance Directives: No Physical Exam Vital Signs: Vital Signs: Last Vital Signs Temp 98.4 F 12/09/21 22:00 Pulse 98 12/10/21 01:49 Resp 18 12/10/21 01:49 BP 132/66 12/09/21 22:00 Pulse Ox 96 12/09/21 22:00 BMI result Body Mass Index 29.0 Const: Other: Appearance: Alert. Oriented X3. No acute distress. Eyes: Pupils equal, round and reactive to light. ENT: Pharynx normal. Neck: Normal inspection. Neck supple. No lymph nodes noted. No crepitus CVS: Normal heart rate and rhythm. Pulses normal. Normal S1 and S2 Respiratory: No respiratory distress. Wheezing bilaterally, moderate to good air movement. Abdomen: Soft and nontender. No rigidity. No distention. Skin: Skin warm and dry. Normal skin color. Normal skin turgor. Extremities: No lower extremity edema. No Lacerations. No Rash Neuro: Oriented X 3. No motor deficit. No sensory deficit. Moving all extremities. No slurred speech. CN 2 through 12 grossly intact Psych: calm, cooperative, normal affect Course Course Course Narrative: Patient is getting an hour long treatment, Solu-Medrol and magnesium. We will reassess after treatment. Patient states that she feels much better. However she still wheezing quite a bit and oxygen saturation is 91% on room air. I discussed with the patient that she will likely be admitted. Patient states that she would prefer to avoid admission. We will go ahead and try another hour long treatment and then d ecide. Second our long nebulization treatments starting soon, sign-out given to Dr. Ydoer MDM - URI/Sore Throat Lab Data Labs: Lab Results 12/09/21 12/09/21 Range/Units 22:03 22:03 COVID-19 (JOSE MARTIN) Negative (Negative) COVID-19 Clin Com See Note Influenza Type A ([facility]) Negative (Negative) Influenza Type B ([facility]) Negative (Negative) Influenza A & B Note See Note Discharge Plan Discharge Clinical Impression: Asthma exacerbation Patient Disposition: Still a Patient Instructions: Asthma in Children (DC) Additional Instructions: Please follow-up with your primary care physician tomorrow. If you have any worsening or new symptoms, please return to the emergency room or call 911 Prescriptions: New albuterol sulfate 90 mcg/actuation HFA aerosol inhaler 2 puff inhalation Q4-6H PRN (Reason: shortness of breath or wheezing) Qty: 8.5 2RF prednisone 50 mg tablet 50 mg PO DAILY Qty: 5 0RF No Action buprenorphine-naloxone [Suboxone] 2-0.5 mg film 3 film buccal DAILY 3 Days Qty: 9 0RF ondansetron 4 mg tablet,disintegrating 4 mg PO Q8H PRN (Reason: nausea and vomiting) Qty: 20 0RF prednisone 50 mg tablet 50 mg PO DAILY Qty: 4 0RF Rx Instructions: Start 12/12/2020 prednisone 10 mg tablets,dose pack 10 mg PO PER PKG DIR Qty: 48 0RF benzonatate [Tessalon Perles] 100 mg capsule 100 mg PO TID PRN (Reason: cough) Qty: 10 0RF albuterol sulfate 90 mcg/actuation HFA aerosol inhaler 1 inh inhalation QID PRN (Reason: shortness of breath or wheezing) Qty: 6.7 0RF albuterol sulfate 0.63 mg/3 mL solution for nebulization 0.63 mg inhalation Q4-6H PRN (Reason: shortness of breath or wheezing) Qty: 75 0RF amoxicillin-pot clavulanate [Augmentin] 875-125 mg tablet 1 tab PO BID Qty: 14 0RF mometasone [Nasonex] 50 mcg/actuation spray,non-aerosol 2 spray intranasal DAILY Qty: 17 0RF Rx Instructions: administer into each nostril prednisone 20 mg tablet 40 mg PO DAILY 5 Days Qty: 10 0RF albuterol sulfate 90 mcg/actuation aerosol powdr breath activated 2 inh inhalation Q4-6H PRN (Reason: shortness of breath) Qty: 1 0RF azithromycin 250 mg tablet See Rx Instructions .ROUTE .COMPLEX Qty: 6 0RF Rx Instructions: For 250 mg dose pack: take 500 mg today (day 1), then 250 mg for 4 days (days 2-5) ibuprofen 800 mg tablet 800 mg PO Q8H PRN (Reason: pain) Qty: 20 0RF prednisone 20 mg tablet 60 mg PO DAILY 5 Days Qty: 15 0RF clonidine HCl 0.1 mg tablet 0.1 mg PO TID 7 Days Qty: 21 0RF hydroxyzine pamoate [Vistaril] 25 mg capsule 25 mg PO TID PRN (Reason: itching) 7 Days Qty: 21 0RF
[2021-12-10] MEDS: methylPREDNISolone Sod Succ 125 MG/2 ML VIAL IVPUSH (02:22)
[2021-12-10] MEDS: Magnesium Sulfate/H2O 2 GM/50 ML PIGGYBACK IV (02:22)
[2021-12-10 02:52] VITALS: BP 113/56; PULSE 95; RESP 16; O2SAT 96
== END 2021-12-10 04:25 | disposition home or self-care (01) ==
PROVIDERS: Emergency Medicine; Emergency Provider Student in an Organized Health Care Education/Training Program; PCP Nurse Practitioner Family
DX: J45.901 Unspecified asthma with (acute) exacerbation (principal); Z20.822 Contact with and (suspected) exposure to COVID-19
CPT/HCPCS: 71046; 87502; 87635; 94640; 94644; 96365; 96366; 96375; 99284; J2930; J3475

== ENCOUNTER 2023-01-08 16:42 | Emergency (ER) | payer OTHER, SELFPAY ==
--- NOTE | ~2023-01-08 | XR_ITS ---
EXAMINATION: XR ANKLE, LEFT CLINICAL INFORMATION: Ankle swelling and pain COMPARISON: None available. TECHNIQUE: AP, lateral, and mortise views of the left ankle. FINDINGS: There is mild bilateral soft tissue swelling. Two screws are present through the lateral talus. No fractures or dislocations. No joint effusion. Probable old healed fibular fracture. XR/XR ankle LT 2V IMPRESSION: Soft tissue swelling but no acute fracture or dislocation.
--- NOTE | 2023-01-08 16:49 | ED.LOWEXIN ---
HPI - Extremity Injury (Lower) General Chief Complaint: Extremity Injury, Lower <Marlen Andrade NP - Last Filed: 01/08/23 16:51> Stated Complaint: left ankle injury <Marlen Andrade NP - Last Filed: 01/08/23 16:51> Time Seen by Provider: 01/08/23 17:16 <Marlen Andrade NP - Last Filed: 01/08/23 16:51> Source: patient <LAWRENCE Ambrose Last Filed: 01/08/23 17:57> Mode of arrival: ambulatory <LAWRENCE Ambrose Last Filed: 01/08/23 17:57> Limitations: no limitations <LAWRENCE Ambrose Last Filed: 01/08/23 17:57> History of Present Illness HPI Narrative: Patient is a 37 year old assigned female at with a history of a pervious left ankle surgery in 2015 presenting to the emergency department today with left ankle pain. Patient states that she's in a new job that involves much more movement on her feet throughout the day and it is causing left ankle pain. Patient states that she just wanted to ensure her hardware is OK. Patient denies any dizziness, lightheadedness, abdominal pain, nausea, vomiting, fever, chills, blurry vision, double vision, loss of vision, chest pain, difficulty breathing, shortness of breath, back pain, night sweats, pain with urination, increased urinary frequency, increased urinary urgency, blood in her urine or stool, syncope or a near syncopal episode, recent trauma or falls, bowel incontinence, bladder incontinence, bowel retention, bladder retention, or any other complaints at this time. <LAWRENCE Ambrose - Last Filed: 01/08/23 17:57> Severity: mild <LAWRENCE Ambrose Last Filed: 01/08/23 17:57> Severity scale (1-10): 4 <LAWRENCE Ambrose Last Filed: 01/08/23 17:57> Relieving factors: nothing <LAWRENCE Ambrose Last Filed: 01/08/23 17:57> Exacerbating factors: nothing <LAWRENCE Ambrose Last Filed: 01/08/23 17:57> Related Data Home Medications: Previous Rx's Medication Instructions Recorded ondansetron 4 mg disintegrating 4 mg PO Q8H PRN nausea and 06/24/20 tablet vomiting #20 tabs albuterol sulfate 0.63 mg/3 mL 0.63 mg (3 mL) inhalation Q4-6H 10/21/20 solution for nebulization PRN shortness of breath or wheezing #75 mL albuterol sulfate 90 mcg/actuation 1 inh inhalation QID PRN shortness 10/21/20 aerosol inhaler of breath or wheezing #6.7 grams benzonatate 100 mg capsule 100 mg PO TID PRN cough #10 caps 10/21/20 (Tesgely Sinclair) prednisone 10 mg tablets in a dose 10 mg PO PER PKG DIR #48 ea 10/21/20 pack prednisone 50 mg tablet 50 mg PO DAILY #4 tabs 12/11/20 clonidine HCl 0.1 mg tablet 0.1 mg PO TID 7 days #21 tabs 03/01/21 buprenorphine 2 mg-naloxone 0.5 mg 3 film buccal DAILY 3 days #9 ea 03/08/21 sublingual film (Suboxone) hydroxyzine pamoate 25 mg capsule 25 mg PO TID PRN itching 7 days 04/19/21 (Vistaril) #21 caps amoxicillin 875 mg-potassium 1 tab PO BID #14 tabs 05/24/21 clavulanate 125 mg tablet (Augmentin) mometasone 50 mcg/actuation nasal 2 spray intranasal DAILY #17 grams 05/24/21 spray (Nasonex) azithromycin 250 mg tablet See Rx Instructions PO .COMPLEX #6 08/19/21 tabs ibuprofen 800 mg tablet 800 mg PO Q8H PRN pain #20 tabs 08/19/21 prednisone 20 mg tablet 60 mg PO DAILY 5 days #15 tabs 09/14/21 albuterol sulfate 90 mcg/actuation 2 inh inhalation Q4-6H PRN 10/31/21 breath activated powder inhaler shortness of breath #1 ea prednisone 20 mg tablet 40 mg PO DAILY 5 days #10 tabs 10/31/21 albuterol sulfate 90 mcg/actuation 2 puff inhalation Q4-6H PRN 12/10/21 aerosol inhaler shortness of breath or wheezing #8.5 grams prednisone 50 mg tablet 50 mg PO DAILY #5 tabs 12/10/21 <Marlen Andrade [employer] NETWORK ADMINISTRATOR - Last Filed: 01/08/23 16:51> Allergies/Adverse Reactions: Allergies Allergy/AdvReac Type Severity Reaction Status Date / Time prochlorperazine Allergy Mild MUSCLE Verified 01/08/23 16:50 [From COMPAZINE] CONTRACTIONS Compazine Allergy Unknown Shakiness Uncoded 08/19/21 13:20 <Marlen Andrade, [employer] NETWORK ADMINISTRATOR - Last Filed: 01/08/23 16:51> Review of Systems Constitutional: Constitutional: Reports no additional constitutional complaints, Denies chills, Denies fever(s) and Denies night sweats <LAWRENCE Ambrose - Last Filed: 01/08/23 17:57> Eyes: Eyes: Reports no additional eye complaints, Denies blurry vision, Denies change in vision, Denies diplopia, Denies eye discharge, Denies loss of vision and Denies eye pain <LAWRENCE Ambrose - Last Filed: 01/08/23 17:57> ENT: Denies dizziness <LAWRENCE Ambrose - Last Filed: 01/08/23 17:57> Cardiovascular: Cardiovascular: Reports no additional cardiovascular complaints, Denies chest pain, Denies lightheadedness, Denies Loss of Consciousness and Denies dyspnea <LAWRENCE Ambrose - Last Filed: 01/08/23 17:57> Respiratory: Respiratory: Reports no additional respiratory complaints and Denies dyspnea <LAWRENCE Ambrose - Last Filed: 01/08/23 17:57> Gastrointestinal: Gastrointestinal: Reports no additional gastrointestinal complaints, Denies abdominal pain, Denies melena, Denies hematochezia, Denies change in bowel habits and Denies change in stool character <LAWRENCE Ambrose - Last Filed: 01/08/23 17:57> Genitourinary: Genitourinary: Denies hematuria, Denies urinary frequency, Denies dysuria, Denies urinary incontinence, Denies urinary hesitancy and Denies urinary urgency <LAWRENCE Ambrose - Last Filed: 01/08/23 17:57> Musculoskeletal: Musculoskeletal: Reports no additional musculoskeletal complaints, Denies numbness and Denies tingling <LAWRENCE Ambrose - Last Filed: 01/08/23 17:57> Comments: left ankle pain <LAWRENCE Ambrose - Last Filed: 01/08/23 17:57> Neurologic: Denies dizziness, Denies loss of vision, Denies numbness and Denies tingling <LAWRENCE Ambrose - Last Filed: 01/08/23 17:57> Psychiatric: Psychiatric: Reports no additional psychiatric complaints <LAWRENCE Ambrose - Last Filed: 01/08/23 17:57> Endocrine: Endocrine: Reports no additional endocrine complaints <LAWRENCE Ambrose - Last Filed: 01/08/23 17:57> Hematologic/Lymphatic: Hematologic/Lymphatic: Reports no additional hematologic/lymphatic complaints <LAWRENCE Ambrose - Last Filed: 01/08/23 17:57> Allergic/Immunologic: Allergic/Immunologic: Reports no additional allergic/immunologic complaints <LAWRENCE Ambrose - Last Filed: 01/08/23 17:57> PMFSH Past Medical History Attestation statement: The following information was validated with the patient. <LAWRENCE Ambrose - Last Filed: 01/08/23 17:57> Source: old records reviewed and nursing notes reviewed <LAWRENCE Ambrose - Last Filed: 01/08/23 17:57> Medical History: Medical History Asthma Hypothyroidism Opioid use disorder <Marlen Andrade NP - Last Filed: 01/08/23 16:51> Social History Social History: Social History Alcohol intake: never Substance Use Type: Marijuana Advance Directives: No Advance Directives Information Provided: No <Marlen Andrade NP - Last Filed: 01/08/23 16:51> Physical Exam Vital Signs: Vital Signs: Last Vital Signs Temp 97.9 F 01/08/23 16:50 Pulse 86 01/08/23 16:50 Resp 18 01/08/23 16:50 BP 136/92 H 01/08/23 16:50 Pulse Ox 99 01/08/23 16:50 O2 Del Method Room Air 01/08/23 16:50 BMI result Body Mass Index 42.2 <Marlen Andrade NP - Last Filed: 01/08/23 16:51> Vital Signs: Last Vital Signs Temp 97.9 F 01/08/23 16:50 Pulse 86 01/08/23 16:50 Resp 18 01/08/23 16:50 BP 136/92 H 01/08/23 16:50 Pulse Ox 99 01/08/23 16:50 O2 Del Method Room Air 01/08/23 16:50 BMI result Body Mass Index 42.2 <LAWRENCE Ambrose - Last Filed: 01/08/23 17:57> Const: General: cooperative, no acute distress, alert and awake <LAWRENCE Ambrose - Last Filed: 01/08/23 17:57> Nutritional Appearance: well nourished <LAWRENCE Ambrose - Last Filed: 01/08/23 17:57> Orientation/consciousness: patient oriented x3 <LAWRENCE Ambrose - Last Filed: 01/08/23 17:57> Limitations: no limitations <LAWRENCE Ambrose - Last Filed: 01/08/23 17:57> HEENT: Head: Yes normal to inspection and Yes atraumatic <LAWRENCE Ambrose - Last Filed: 01/08/23 17:57> Ears: hearing grossly normal bilaterally and external ears normal <LAWRENCE Ambrose - Last Filed: 01/08/23 17:57> General nose exam: Normal external nose present, no nasal discharge noted and no epistaxis <LAWRENCE Ambrose - Last Filed: 01/08/23 17:57> Face and sinus: Yes normal facial exam, No abrasion and No laceration <LAWRENCE Ambrose - Last Filed: 01/08/23 17:57> Mouth: Normal oral and palatal mucosa present, no drooling and no muffled voice <LAWRENCE Ambrose - Last Filed: 01/08/23 17:57> Eyes: General: appearance normal, both eyes and all related structures <LAWRENCE Ambrose - Last Filed: 01/08/23 17:57> Periorbital: periorbital findings normal <LAWRENCE Ambrose - Last Filed: 01/08/23 17:57> Eyelids: Yes eyelids normal <LAWRENCE Ambrose - Last Filed: 01/08/23 17:57> Conjunctivae: conjunctivae normal <Bridget Love PA - Last Filed: 01/08/23 17:57> Pupils: Equal, round and reactive pupils present <Bridget Love PA - Last Filed: 01/08/23 17:57> EOM: EOMs intact bilaterally <Bridget Love PA - Last Filed: 01/08/23 17:57> Neck: Neck: Yes normal visual inspection, Yes full ROM and Yes no lymphadenopathy <Bridget Love PA - Last Filed: 01/08/23 17:57> Chest: Chest palpation & inspection: normal inspection of the chest <Bridget Love PA - Last Filed: 01/08/23 17:57> Resp: Effort & Inspection: normal respiratory effort and able to speak in complete sentences <Bridget Love PA - Last Filed: 01/08/23 17:57> GI: Inspection: Yes normal to inspection <Bridget Love PA - Last Filed: 01/08/23 17:57> Neuro: General: patient oriented x3 and moves all extremities <Bridget Love PA - Last Filed: 01/08/23 17:57> Cranial nerves: Yes Equal, round and reactive pupils present <Bridget Love PA - Last Filed: 01/08/23 17:57> Cognition (Neuro): normal cognition <Bridget Love PA - Last Filed: 01/08/23 17:57> Motor exam (neuro): 5/5 motor strength present throughout <Bridget Love PA - Last Filed: 01/08/23 17:57> Sensory Exam: Normal double simultaneous stimulation for sensation <Bridget Love PA - Last Filed: 01/08/23 17:57> Coordination: [id number] test normal <Bridget Love PA - Last Filed: 01/08/23 17:57> Extrem: General: Yes normal to inspection, Yes full ROM and Yes capillary refill normal <Bridget Love PA - Last Filed: 01/08/23 17:57> Psych: Appearance: grossly normal <Bridget Love PA - Last Filed: 01/08/23 17:57> Mental Status: mental status grossly normal <Bridget Love PA - Last Filed: 01/08/23 17:57> Affect: normal affect <LAWRENCE Ambrose - Last Filed: 01/08/23 17:57> Attitude: cooperative <LAWRENCE Ambrose - Last Filed: 01/08/23 17:57> Thought process: Normal thought process present <LAWRENCE Ambrose - Last Filed: 01/08/23 17:57> Thought content: Normal thought content present <LAWRENCE Ambrose - Last Filed: 01/08/23 17:57> Insight: Good insight present (Psych) <LAWRENCE Ambrose - Last Filed: 01/08/23 17:57> Course Course Course Narrative: This is a rapid medical exam. Deferred additional HPI, ROS, PE to primary provider, 37 yo female with history of depression, anxiety, hypothyroidism here with left ankle pain/swelling, feels like she may have over did it at work. Patient reports previous injury with hardware in place. Will check x-rays VSS <Marlen Andrade NP - Last Filed: 01/08/23 16:51> Medical Decision Making Medical Decision Making MDM Narrative: Patient is a 37 year old assigned female at with a history of previous left ankle repair in 2015 presenting to the emergency department today with left ankle pain. Patient's physical exam was unremarkable. Patient's left ankle x-ray showed no acute process. I explained my physical exam findings as well as all test results to the patient. I answered all questions asked by the patient. I stressed the importance of the patient taking her medication as prescribed. I stressed the importance of the patient following up with her primary care provider. I stressed the importance of the patient returning to the emergency department immediately if her symptoms were to worsen or if she were to develop any dizziness, shortness of breath, difficulty breathing, chest pain, blurry vision, loss of vision, nausea, vomiting, abdominal pain, fever, chills, back pain, or any other complaints. Patient verbalized agreement and understanding with this treatment plan and discharge. <LAWRENCE Ambrose - Last Filed: 01/08/23 17:57> Differential Diagnosis Differential Diagnoses: The differential diagnosis associated with the presentation includes <LAWRENCE Ambrose Last Filed: 01/08/23 17:57> ankle pain, osteoarthritis <LAWRENCE Ambrose - Last Filed: 01/08/23 17:57> Independent Interpretation I performed an independent interpretation of an: Plain X-Ray <LAWRENCE Ambrose - Last Filed: 01/08/23 17:57> Interpretation: My interpretation is in agreement with the radiologist's impression of this imaging study. EXAMINATION: XR ANKLE, LEFT CLINICAL INFORMATION: Ankle swelling and pain? COMPARISON: None available.? TECHNIQUE: AP, lateral, and mortise views of the left ankle. FINDINGS: There is mild bilateral soft tissue swelling. Two screws are present through the lateral talus. No fractures or dislocations. No joint effusion. Probable old healed fibular fracture. XR/XR ankle LT 2V IMPRESSION: Soft tissue swelling but no acute fracture or dislocation. ? Dictated By: Boo Salcedo MD Signed By: Electronically signed by oBo Salcedo MD 01/08/23 1742 <LAWRENCE Ambrose - Last Filed: 01/08/23 17:57> Discharge Plan Discharge Clinical Impression: Arthritis <Mralen Andrade NP - Last Filed: 01/08/23 16:51> Patient Disposition: Home, Self-Care <Marlen Andrade NP - Last Filed: 01/08/23 16:51> Instructions: Osteoarthritis (DC) <Marlen Andrade NP - Last Filed: 01/08/23 16:51> Additional Instructions: Follow up with your primary care provider. Return to the emergency department immediately if your symptoms worsen or if you develop any dizziness, shortness of breath, difficulty breathing, chest pain, blurry vision, loss of vision, nausea, vomiting, abdominal pain, fever, chills, back pain, or any other complaints. <Marlen Andrade LIN[employer] NETWORK ADMINISTRATOR - Last Filed: 01/08/23 16:51> Prescriptions: No Action buprenorphine-naloxone [Suboxone] 2-0.5 mg film 3 film buccal DAILY 3 Days Qty: 9 0RF ondansetron 4 mg tablet,disintegrating 4 mg PO Q8H PRN (Reason: nausea and vomiting) Qty: 20 0RF prednisone 50 mg tablet 50 mg PO DAILY Qty: 4 0RF Rx Instructions: Start 12/12/2020 prednisone 10 mg tablets,dose pack 10 mg PO PER PKG DIR Qty: 48 0RF benzonatate [Tessalon Perles] 100 mg capsule 100 mg PO TID PRN (Reason: cough) Qty: 10 0RF albuterol sulfate 90 mcg/actuation HFA aerosol inhaler 1 inh inhalation QID PRN (Reason: shortness of breath or wheezing) Qty: 6.7 0RF albuterol sulfate 0.63 mg/3 mL solution for nebulization 0.63 mg inhalation Q4-6H PRN (Reason: shortness of breath or wheezing) Qty: 75 0RF amoxicillin-pot clavulanate [Augmentin] 875-125 mg tablet 1 tab PO BID Qty: 14 0RF mometasone [Nasonex] 50 mcg/actuation spray,non-aerosol 2 spray intranasal DAILY Qty: 17 0RF Rx Instructions: administer into each nostril prednisone 20 mg tablet 40 mg PO DAILY 5 Days Qty: 10 0RF albuterol sulfate 90 mcg/actuation aerosol powdr breath activated 2 inh inhalation Q4-6H PRN (Reason: shortness of breath) Qty: 1 0RF azithromycin 250 mg tablet See Rx Instructions .ROUTE .COMPLEX Qty: 6 0RF Rx Instructions: For 250 mg dose pack: take 500 mg today (day 1), then 250 mg for 4 days (days 2-5) ibuprofen 800 mg tablet 800 mg PO Q8H PRN (Reason: pain) Qty: 20 0RF prednisone 20 mg tablet 60 mg PO DAILY 5 Days Qty: 15 0RF albuterol sulfate 90 mcg/actuation HFA aerosol inhaler 2 puff inhalation Q4-6H PRN (Reason: shortness of breath or wheezing) Qty: 8.5 2RF prednisone 50 mg tablet 50 mg PO DAILY Qty: 5 0RF clonidine HCl 0.1 mg tablet 0.1 mg PO TID 7 Days Qty: 21 0RF hydroxyzine pamoate [Vistaril] 25 mg capsule 25 mg PO TID PRN (Reason: itching) 7 Days Qty: 21 0RF <Marlen Andrade NP - Last Filed: 01/08/23 16:51> Referrals: Amarilys London, LIN[employer] NETWORK ADMINISTRATOR [Primary Care Provider] - <Marlen Andrade NP - Last Filed: 01/08/23 16:51> Stand Alone Forms: Work/School Release <Marlen Andrade NP - Last Filed: 01/08/23 16:51> Print Language: Chinese <Marlen Andrade NP - Last Filed: 01/08/23 16:51>
[2023-01-08 16:50] VITALS: BP 136/92; PULSE 86; RESP 18; TEMP 36.6; O2SAT 99; BMI 42.2
== END 2023-01-08 18:05 | disposition home or self-care (01) ==
PROVIDERS: Emergency Provider Emergency Medicine; PCP Nurse Practitioner Family
DX: M19.072 Primary osteoarthritis, left ankle and foot (principal); M25.572 Pain in left ankle and joints of left foot; Z79.899 Other long term (current) drug therapy
CPT/HCPCS: 73600; 99282; 99283

== ENCOUNTER 2023-08-18 12:40 | Emergency (ER) | payer OTHER, SELFPAY ==
--- NOTE | ~2023-08-18 | XR_ITS ---
EXAMINATION: XR chest 2V CLINICAL INFORMATION: Shortness of breath COMPARISON: No prior chest x-ray available in our system for comparison at the time of this dictation. TECHNIQUE: XR chest 2V, 2 Views Lungs and Beti: Both lungs are clear. Pleura: Normal. Costophrenic angles are sharp. No pneumothorax. Heart: The heart is normal in size. Mediastinum: The mediastinum is within normal limits.. Bones: Skeletal structures included are normal for patient's age. XR/XR chest 2V IMPRESSION: No radiographic evidence of acute cardiopulmonary disease.
[2023-08-18 12:42] VITALS: BP 118/59; PULSE 77; RESP 20; TEMP 36.1; O2SAT 98; BMI 42.3
--- NOTE | 2023-08-18 12:45 | ED_ITS ---
HPI - General Adult General Chief complaint: Dyspnea Stated complaint: diff breathing Time Seen by Provider: 08/18/23 13:03 Source: patient Mode of arrival: ambulatory History of Present Illness HPI narrative: 37-year-old female with history of asthma and reports progressive difficulty breathing since yesterday and states that her inhalers are not working. She also reports a dry cough and some congestion. She otherwise denies any GI or symptoms. Related Data Previous Rx's Medication Instructions Recorded ondansetron 4 mg disintegrating 4 mg PO Q8H PRN nausea and 06/24/20 tablet vomiting #20 tabs albuterol sulfate 0.63 mg/3 mL 0.63 mg (3 mL) inhalation Q4-6H 10/21/20 solution for nebulization PRN shortness of breath or wheezing #75 mL albuterol sulfate 90 mcg/actuation 1 inh inhalation QID PRN shortness 10/21/20 aerosol inhaler of breath or wheezing #6.7 grams benzonatate 100 mg capsule 100 mg PO TID PRN cough #10 caps 10/21/20 (Vera Sinclair) prednisone 10 mg tablets in a dose 10 mg PO PER PKG DIR #48 ea 10/21/20 pack prednisone 50 mg tablet 50 mg PO DAILY #4 tabs 12/11/20 clonidine HCl 0.1 mg tablet 0.1 mg PO TID 7 days #21 tabs 03/01/21 buprenorphine 2 mg-naloxone 0.5 mg 3 film buccal DAILY 3 days #9 ea 03/08/21 sublingual film (Suboxone) hydroxyzine pamoate 25 mg capsule 25 mg PO TID PRN itching 7 days 04/19/21 (Vistaril) #21 caps amoxicillin 875 mg-potassium 1 tab PO BID #14 tabs 05/24/21 clavulanate 125 mg tablet (Augmentin) mometasone 50 mcg/actuation nasal 2 spray intranasal DAILY #17 grams 05/24/21 spray (Nasonex) azithromycin 250 mg tablet See Rx Instructions PO .COMPLEX #6 08/19/21 tabs ibuprofen 800 mg tablet 800 mg PO Q8H PRN pain #20 tabs 08/19/21 prednisone 20 mg tablet 60 mg (3 x 20 mg) PO DAILY 5 days 09/14/21 #15 tabs albuterol sulfate 90 mcg/actuation 2 inh inhalation Q4-6H PRN 10/31/21 breath activated powder inhaler shortness of breath #1 ea prednisone 20 mg tablet 40 mg (2 x 20 mg) PO DAILY 5 days 10/31/21 #10 tabs albuterol sulfate 90 mcg/actuation 2 puff inhalation Q4-6H PRN 12/10/21 aerosol inhaler shortness of breath or wheezing #8.5 grams prednisone 50 mg tablet 50 mg PO DAILY #5 tabs 12/10/21 prednisone 50 mg tablet 50 mg PO DAILY 4 days #4 tabs 08/18/23 Allergies Allergy/AdvReac Type Severity Reaction Status Date / Time prochlorperazine Allergy Mild MUSCLE Verified 08/18/23 12:47 [From COMPAZINE] CONTRACTIONS Compazine Allergy Unknown Shakiness Uncoded 08/18/23 12:47 Review of Systems Review of Systems: Pertinent positives and negatives as stated in [facility] Past Medical History Source: nursing notes reviewed Medical History Opioid use disorder Asthma Hypothyroidism Social History Social History Alcohol intake: never Smoked in Last 30 Days: No Use of substances other than those prescribed or required for medical reasons: No Substance Use Type: Marijuana Advance Directives: No Advance Directives Information Provided: No Patient : No Physical Exam ED Vital Signs: Vital Signs - 24 hr 08/18/23 12:42 08/18/23 13:14 08/18/23 13:18 Temperature 97 F 98.1 F Pulse Rate 77 76 81 Respiratory Rate 20 18 18 Blood Pressure 118/59 L 124/72 Pulse Oximetry 98 99 Oxygen Delivery Method Room Air Room Air 08/18/23 14:41 Temperature Pulse Rate 74 Respiratory Rate 18 Blood Pressure Pulse Oximetry Oxygen Delivery Method BMI result Body Mass Index 42.3 VITAL SIGNS: Reviewed. GENERAL: Well developed, well nourished, in no acute distress. HEAD: Normocephalic/atraumatic EYES: PERRLA, EOMI EARS: Ext canals without abnormality, TMs non-bulging and non-erythematous NOSE: Nares patent bilateral OROPHARYNX: no oral lesions noted, posterior pharynx clear and non-erythematous without noted tonsillar enlargement/erythema/exudates NECK: Supple, no adenopathy LUNGS: Decreased breath sounds bilaterally with expiratory wheeze noted, no significant increased work of breathing or tachypnea. SpO2<99> CARDIOVASCULAR: Regular rate and rhythm without noted murmurs ABDOMEN: Soft, non-tender, non-distended with bowel sounds. MUSCULOSKELETAL: No tenderness, deformities, or effusions noted on gross inspection. EXTREMITIES: No cyanosis, clubbing or edema. SKIN: Inspection of the skin reveals no rashes NEUROLOGIC: Alert and oriented x 4. Strength and sensation to light touch were grossly intact x 4. Course Course Course Narrative: RME performed by Bridget Love PA-C. Patient is a 37 year old assigned female at presenting to the emergency department with a cough. Patient has asthma. Feels as though it is getting significantly worse. Imaging and swabs ordered. Patient placed back in the waiting room pending room availability and results. Medications Administered Discontinued Medications Generic Name Dose Route Start Last Admin Trade Name Freq PRN Reason Stop Dose Admin Albuterol Sulfate 2.5 mg/ 5 mg 08/18/23 14:34 08/18/23 14:41 Albuterol Sulfate 2.5 mg INHALE 08/18/23 14:35 5 mg ONCE ONE Administration Albuterol Sulfate 5 mg/ 0 mg 08/18/23 13:10 08/18/23 13:14 Albuterol/Ipratropium 3 ml INHALE 08/18/23 13:11 5 each ONCE ONE Administration Prednisone 50 mg 08/18/23 13:41 08/18/23 13:52 Prednisone 10 Mg Tablet PO 08/18/23 13:42 50 mg ONCE ONE Administration Medical Decision Making Medical Decision Making [facility] Narrative: 37-year-old female with history and clinical presentation, DDX: Acute asthma exacerbation, viral illness-influenza/COVID, bacterial pneumonia which I doubt. I reviewed all investigations and viral testing is negative for influenza/COVID- 19. Chest x-ray is negative for infiltrate or venous congestion otherwise my interpretation is in agreement with radiology's impression. On re-evaluation patient is feeling much better. Differential Diagnosis Differential Diagnoses: The differential diagnosis associated with the presentation includes Please see the discussion above Admission/Observation Consideration of admission/observation: Escalation of care including admission/observation considered Please see the discussion above Lab Data [facility] Lab Attestation statement: I reviewed the patient's lab results. Please see the discussion above Labs: Lab Results 12/23/23 Range/Units 12:55 COVID-19 (JOSE MARTIN) Negative (Negative) COVID-19 Clin Com See Note Influenza Type A ([facility]) Negative (Negative) Influenza Type B ([facility]) Negative (Negative) Influenza A & B Note See Note Radiology Impression Discussion of test interpretation with radiology: I have reviewed the radiologist's reading. Radiologist Impression: Please see the discussion above External Record Review External record reviewed: Outpatient record, Prior outpatient labs and Prior outpatient radiology Chronic Conditions Patient?s care impacted by: Other Asthma Critical Care Time Critical Care Time Critical Care Time: Yes Total Critical Care Time: 30 Attestation: I personally attest to this time spent taking care of the patient. Discharge Plan Discharge Clinical Impression: Asthma exacerbation Patient Disposition: Home, Self-Care Instructions: Asthma (ED), Wheezing (ED) Additional Instructions: 1. Resume all home medications as prescribed. 2. Please complete the short course of steroids that you have been prescribed. 3. Please follow-up with primary care doctor. Return to the ER for any worsening symptoms. Prescriptions: New prednisone 50 mg tablet 50 mg PO DAILY 4 Days Qty: 4 0RF No Action buprenorphine-naloxone [Suboxone] 2-0.5 mg film 3 film buccal DAILY 3 Days Qty: 9 0RF ondansetron 4 mg tablet,disintegrating 4 mg PO Q8H PRN (Reason: nausea and vomiting) Qty: 20 0RF prednisone 50 mg tablet 50 mg PO DAILY Qty: 4 0RF Rx Instructions: Start 12/12/2020 prednisone 10 mg tablets,dose pack 10 mg PO PER PKG DIR Qty: 48 0RF benzonatate [Tessalon Perles] 100 mg capsule 100 mg PO TID PRN (Reason: cough) Qty: 10 0RF albuterol sulfate 90 mcg/actuation HFA aerosol inhaler 1 inh inhalation QID PRN (Reason: shortness of breath or wheezing) Qty: 6.7 0RF albuterol sulfate 0.63 mg/3 mL solution for nebulization 0.63 mg inhalation Q4-6H PRN (Reason: shortness of breath or wheezing) Qty: 75 0RF amoxicillin-pot clavulanate [Augmentin] 875-125 mg tablet 1 tab PO BID Qty: 14 0RF mometasone [Nasonex] 50 mcg/actuation spray,non-aerosol 2 spray intranasal DAILY Qty: 17 0RF Rx Instructions: administer into each nostril prednisone 20 mg tablet 40 mg PO DAILY 5 Days Qty: 10 0RF albuterol sulfate 90 mcg/actuation aerosol powdr breath activated 2 inh inhalation Q4-6H PRN (Reason: shortness of breath) Qty: 1 0RF azithromycin 250 mg tablet See Rx Instructions .ROUTE .COMPLEX Qty: 6 0RF Rx Instructions: For 250 mg dose pack: take 500 mg today (day 1), then 250 mg for 4 days (days 2-5) ibuprofen 800 mg tablet 800 mg PO Q8H PRN (Reason: pain) Qty: 20 0RF prednisone 20 mg tablet 60 mg PO DAILY 5 Days Qty: 15 0RF albuterol sulfate 90 mcg/actuation HFA aerosol inhaler 2 puff inhalation Q4-6H PRN (Reason: shortness of breath or wheezing) Qty: 8.5 2RF prednisone 50 mg tablet 50 mg PO DAILY Qty: 5 0RF clonidine HCl 0.1 mg tablet 0.1 mg PO TID 7 Days Qty: 21 0RF hydroxyzine pamoate [Vistaril] 25 mg capsule 25 mg PO TID PRN (Reason: itching) 7 Days Qty: 21 0RF Referrals: Amarilys London NP [Primary Care Provider] -
[2023-08-18 13:14] VITALS: BP 124/72; PULSE 76; RESP 18; TEMP 36.7; O2SAT 99
[2023-08-18] MEDS: Albuterol Sulfate 5 MG, Albuterol/Iprat 2.5/0.5MG 3 ML 3 ML INHALE (13:14)
[2023-08-18 13:18] VITALS: PULSE 81; RESP 18; O2SAT 99
--- NOTE | 2023-08-18 13:19 | PC.NURSE ---
a&ox4, vss and up to date. pt comes in d/t UR sx x a few days. pt has recently been near sick contacts - son had pneumonia. pt comes in today c/o chest pain on inspiration/cough/sob. audible wheezing noted. expiratory wheezing noted upon auscultation. some sob/wob noted. pt able to speak in full/clear sentences w/o difficulty. respirations even/unlabored. RT bedside - pt receiving breathing treatment at this time. call davis placed within reach.
[2023-08-18 13:21] LABS: COVID-19 Test Negative (Negative); IDNOW Serial# 08D9AD1C; IDNOW Serial# BCCEAD1C; Influenza A Negative (Negative); Influenza B2 Negative (Negative)
[2023-08-18] MEDS: predniSONE 10 MG TABLET 50 MG PO (13:52)
--- NOTE | 2023-08-18 13:53 | PC.NURSE ---
pt returned from xray at this time. pt verbalizing feeling better post breathing treatment. medication administered per provider order.
[2023-08-18 14:41] VITALS: PULSE 74; RESP 18; O2SAT 97
[2023-08-18] MEDS: Albuterol Sulfate 2.5 MG, Albuterol Sulfate (0.083%) 2.5 MG 5 MG INHALE (14:41)
[2023-08-18 15:19] VITALS: BP 104/57; PULSE 74; RESP 16; O2SAT 100
== END 2023-08-18 15:20 | disposition home or self-care (01) ==
PROVIDERS: Physician Assistant Medical; Emergency Provider Student in an Organized Health Care Education/Training Program; PCP Nurse Practitioner Family
DX: J45.901 Unspecified asthma with (acute) exacerbation (principal); Z11.52 Encounter for screening for COVID-19
CPT/HCPCS: 71046; 87502; 87635; 94640; 99284; 99285

== ENCOUNTER 2023-09-11 19:42 | Emergency (ER) | payer OTHER, SELFPAY ==
--- NOTE | ~2023-09-11 | XR_ITS ---
EXAMINATION: XR CHEST CLINICAL INFORMATION: Dyspnea, wheezing COMPARISON: 08/18/2023 TECHNIQUE: 2 views of the chest were obtained. FINDINGS: Lungs are well-inflated and clear. Trachea is midline in position. No interstitial disease, consolidation or mass. No pleural effusion or pneumothorax. Cardiac silhouette and pulmonary vessels are normal in size. The mediastinum and magdiel have normal contour. The visualized bones and upper abdomen are unremarkable. XR/XR chest 2V IMPRESSION: No acute cardiopulmonary abnormality.
[2023-09-11 20:08] VITALS: BP 118/63; PULSE 67; RESP 22; TEMP 36.7; O2SAT 97; BMI 33.7
--- NOTE | 2023-09-11 20:08 | ED.SOB ---
HPI - SOB/Dyspnea General Chief Complaint: Dyspnea Stated Complaint: Asthma Time Seen by Provider: 09/12/23 00:18 Source: patient Mode of arrival: ambulatory Limitations: no limitations History of Present Illness HPI Narrative: Patient comes to the emergency room complaining of an asthma exacerbation. Patient complaining of cough, no fever or chills. 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 Patient was asked to leave work and come immediately to the emergency room for treatment. Patient denies chest pain. Related Data Previous Rx's Medication Instructions Recorded ondansetron 4 mg disintegrating 4 mg PO Q8H PRN nausea and 06/24/20 tablet vomiting #20 tabs albuterol sulfate 0.63 mg/3 mL 0.63 mg (3 mL) inhalation Q4-6H 10/21/20 solution for nebulization PRN shortness of breath or wheezing #75 mL albuterol sulfate 90 mcg/actuation 1 inh inhalation QID PRN shortness 10/21/20 aerosol inhaler of breath or wheezing #6.7 grams benzonatate 100 mg capsule 100 mg PO TID PRN cough #10 caps 10/21/20 (Tessalon Perles) prednisone 10 mg tablets in a dose 10 mg PO PER PKG DIR #48 ea 10/21/20 pack prednisone 50 mg tablet 50 mg PO DAILY #4 tabs 12/11/20 clonidine HCl 0.1 mg tablet 0.1 mg PO TID 7 days #21 tabs 03/01/21 buprenorphine 2 mg-naloxone 0.5 mg 3 film buccal DAILY 3 days #9 ea 03/08/21 sublingual film (Suboxone) hydroxyzine pamoate 25 mg capsule 25 mg PO TID PRN itching 7 days 04/19/21 (Vistaril) #21 caps amoxicillin 875 mg-potassium 1 tab PO BID #14 tabs 05/24/21 clavulanate 125 mg tablet (Augmentin) mometasone 50 mcg/actuation nasal 2 spray intranasal DAILY #17 grams 05/24/21 spray (Nasonex) azithromycin 250 mg tablet See Rx Instructions PO .COMPLEX #6 08/19/21 tabs ibuprofen 800 mg tablet 800 mg PO Q8H PRN pain #20 tabs 08/19/21 prednisone 20 mg tablet 60 mg (3 x 20 mg) PO DAILY 5 days 09/14/21 #15 tabs albuterol sulfate 90 mcg/actuation 2 inh inhalation Q4-6H PRN 10/31/21 breath activated powder inhaler shortness of breath #1 ea prednisone 20 mg tablet 40 mg (2 x 20 mg) PO DAILY 5 days 10/31/21 #10 tabs albuterol sulfate 90 mcg/actuation 2 puff inhalation Q4-6H PRN 12/10/21 aerosol inhaler shortness of breath or wheezing #8.5 grams prednisone 50 mg tablet 50 mg PO DAILY #5 tabs 12/10/21 prednisone 50 mg tablet 50 mg PO DAILY 4 days #4 tabs 08/18/23 prednisone 50 mg tablet 50 mg PO DAILY #4 tabs 09/12/23 Allergies Allergy/AdvReac Type Severity Reaction Status Date / Time prochlorperazine Allergy Mild MUSCLE Verified 09/11/23 20:07 [From COMPAZINE] CONTRACTIONS Compazine Allergy Unknown Shakiness Uncoded 08/18/23 12:47 Review of Systems Review of Systems: Constitutional : No Weight loss, No Fever, No Chills, No Night Sweats, No Fatigue, No Malaise ENT/Mouth : No Hearing loss, No Ear Pain, No Nasal Congestion, No Sinus Pain, No Hoarseness, No sore throat, No Rhinorrhea, No Swallowing Difficulty Eyes: No Eye Pain, No Swelling, No Redness, No Foreign Body, No Discharge, No Vision Changes Cardiovascular : No Chest Pain, No SOB, No Dyspnea on Exertion, No Orthopnea, No Edema, No Palpitations Respiratory : Cough, wheezing, shortness of breath Gastrointestinal : No Nausea, No Vomiting, No Diarrhea, No Constipation, No abdominal Pain, No Hematochezia, No Melena Genitourinary : no irregular bleeding, No Dysuria, No Urinary Frequency, No Hematuria, No Urinary Incontinence, No Urgency, No Flank Pain, No Urinary Flow Changes, No Hesitancy Musculoskeletal : No joint pain, No Myalgias, No Joint Swelling Skin : No Skin Lesions, No rash Neuro : No Weakness, No Numbness, No Paresthesias, No Loss of Consciousness, No Dizziness, No Headache Psych : No Anxiety/Panic, No Depression, No SI/HI/AH/VH, No Social Issues, Heme/Lymph: No Bruising, No Bleeding,No Lymphadenopathy Endocrine : No Polyuria, No Polydipsia, No Temperature Intolerance [facility] Past Medical History Onset Date is defined in the Problem List Problems that require an onset date and time if occurred within 24 hrs of arrival to the ED Aortic Dissection and Rupture; Neurologic impairment; Cardiopulmonary Arrest; Endotracheal Intubation; Insertion or Replacement of Mechanical Circulatory Assist Device Medical History Opioid use disorder Asthma Hypothyroidism Social History Social History Alcohol intake: never Substance Use Type: Marijuana Advance Directives: No Advance Directives Information Provided: Yes Physical Exam Vital Signs: Vital Signs: Last Vital Signs Temp 97.8 F 09/11/23 23:58 Pulse 76 09/12/23 01:01 Resp 18 09/12/23 01:01 BP 121/71 09/12/23 00:17 Pulse Ox 93 09/12/23 00:17 O2 Del Method Room Air 09/12/23 00:17 BMI result Body Mass Index 33.7 Const: Other: Appearance: Alert. Oriented X3. No acute distress. Eyes: Pupils equal, round and reactive to light. ENT: Pharynx normal. Neck: Normal inspection. Neck supple. No lymph nodes noted. No crepitus CVS: Normal heart rate and rhythm. Pulses normal. Normal S1 and S2 Respiratory: Bilateral wheezing, moderate air movement Abdomen: Soft and nontender. No rigidity. No distention. Skin: Skin warm and dry. Normal skin color. Normal skin turgor. Extremities: No lower extremity edema. No Lacerations. No Rash Neuro: Oriented X 3. No motor deficit. No sensory deficit. Moving all extremities. No slurred speech. CN 2 through 12 grossly intact Psych: calm, cooperative, normal affect Course Course Course Narrative: This is a rapid medical exam: Additional HPI, ROS, PE not included below will be deferred to primary provider. Patient is a 37-year-old female with history of asthma presenting to the ED with complaint of shortness of breath and wheezing since yesterday. Used nebulizer and rescue inhaler at home with little relief. 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 Denies fevers. Expiratory wheezing throughout. Plan: viral swabs, ed bronch protocol, cxr Medications Administered Generic Name Dose Route Start Last Admin Trade Name Freq PRN Reason Stop Dose Admin Magnesium Sulfate 2 gm in 50 mls @ 25 mls/hr 09/12/23 00:27 09/12/23 00:41 Magnesium Sulfate/H2o IV 09/12/23 02:26 25 mls/hr ONCE ONE Administration Discontinued Medications Generic Name Dose Route Start Last Admin Trade Name Freq PRN Reason Stop Dose Admin Albuterol Sulfate 2.5 mg/ 5 mg 09/12/23 00:55 09/12/23 00:58 Albuterol Sulfate 2.5 mg INHALE 09/12/23 00:56 5 mg ONCE ONE Administration Albuterol Sulfate 2.5 mg/ 0 mg 09/12/23 00:26 09/12/23 00:31 Albuterol/Ipratropium 3 ml INHALE 09/12/23 00:27 2 dose ONCE ONE Administration Methylprednisolone Sodium Succinate 125 mg 09/12/23 00:27 09/12/23 00:41 Methylprednisolone Sod Succ 125 Mg/2 Ml Vial IVPUSH 09/12/23 00:28 125 mg ONCE ONE Administration Medical Decision Making Medical Decision Making [facility] Narrative: -patient receiving magnesium, Solu-Medrol, albuterol -patient received 2 nebulization treatments and the above-mentioned treatment, patient states that she feels much better and breathing better. On auscultation, patient is still wheezing minimally but patient has good air movement, oxygen saturation 96% on room air. -patient tested negative for COVID and influenza -patient was ambulated in the ED, patient's oxygen saturation remained above 95%, patient states that she feels much better and comfortable breathing, no shortness of breath or wheezing Differential Diagnosis Differential Diagnoses: The differential diagnosis associated with the presentation includes (Asthma, COVID, influenza, viral URI) Admission/Observation Consideration of admission/observation: Escalation of care including admission/observation considered (Given patient's initial presentation, admission was considered) Lab Data [facility] Lab Attestation statement: I reviewed the patient's lab results. Labs: Lab Results 09/11/23 Range/Units 21:04 COVID-19 (JOSE [facility]ARTIN) Negative (Negative) COVID-19 Clin Com See Note Influenza Type A ([facility]) Negative (Negative) Influenza Type B ([facility]) Negative (Negative) Influenza A & B Note See Note Independent Interpretation I performed an independent interpretation of an: Plain X-Ray (My interpretation of x-ray: No pneumonia/infiltrate) Radiology Impression Discussion of test interpretation with radiology: I have reviewed the radiologist's reading. Radiologist Impression: FINDINGS: Lungs are well-inflated and clear. Trachea is midline in position. No interstitial disease, consolidation or mass. No pleural effusion or pneumothorax. Cardiac silhouette and pulmonary vessels are normal in size. The mediastinum and magdiel have normal contour. The visualized bones and upper abdomen are unremarkable. XR/XR chest 2V IMPRESSION: No acute cardiopulmonary abnormality. Critical Care Time Critical Care Time Critical Care Time: Yes Total Critical Care Time: 60 Attestation: I have personally provided critical care time. Time includes review of lab data, radiology results, discussion with consultants, and monitoring for potential decompensation. Intervention performed as documented. Discharge Plan Discharge Clinical Impression: Asthma Patient Disposition: Home, Self-Care Instructions: Asthma (ED) Additional Instructions: Please follow-up with your primary care physician tomorrow. If you have any worsening or new symptoms, please return to the emergency room or call 911 Prescriptions: New prednisone 50 mg tablet 50 mg PO DAILY Qty: 4 0RF No Action buprenorphine-naloxone [Suboxone] 2-0.5 mg film 3 film buccal DAILY 3 Days Qty: 9 0RF ondansetron 4 mg tablet,disintegrating 4 mg PO Q8H PRN (Reason: nausea and vomiting) Qty: 20 0RF prednisone 50 mg tablet 50 mg PO DAILY Qty: 4 0RF Rx Instructions: Start 12/12/2020 prednisone 10 mg tablets,dose pack 10 mg PO PER PKG DIR Qty: 48 0RF benzonatate [Tessalon Perles] 100 mg capsule 100 mg PO TID PRN (Reason: cough) Qty: 10 0RF albuterol sulfate 90 mcg/actuation HFA aerosol inhaler 1 inh inhalation QID PRN (Reason: shortness of breath or wheezing) Qty: 6.7 0RF albuterol sulfate 0.63 mg/3 mL solution for nebulization 0.63 mg inhalation Q4-6H PRN (Reason: shortness of breath or wheezing) Qty: 75 0RF amoxicillin-pot clavulanate [Augmentin] 875-125 mg tablet 1 tab PO BID Qty: 14 0RF mometasone [Nasonex] 50 mcg/actuation spray,non-aerosol 2 spray intranasal DAILY Qty: 17 0RF Rx Instructions: administer into each nostril prednisone 20 mg tablet 40 mg PO DAILY 5 Days Qty: 10 0RF albuterol sulfate 90 mcg/actuation aerosol powdr breath activated 2 inh inhalation Q4-6H PRN (Reason: shortness of breath) Qty: 1 0RF azithromycin 250 mg tablet See Rx Instructions .ROUTE .COMPLEX Qty: 6 0RF Rx Instructions: For 250 mg dose pack: take 500 mg today (day 1), then 250 mg for 4 days (days 2-5) ibuprofen 800 mg tablet 800 mg PO Q8H PRN (Reason: pain) Qty: 20 0RF prednisone 20 mg tablet 60 mg PO DAILY 5 Days Qty: 15 0RF albuterol sulfate 90 mcg/actuation HFA aerosol inhaler 2 puff inhalation Q4-6H PRN (Reason: shortness of breath or wheezing) Qty: 8.5 2RF prednisone 50 mg tablet 50 mg PO DAILY Qty: 5 0RF prednisone 50 mg tablet 50 mg PO DAILY 4 Days Qty: 4 0RF clonidine HCl 0.1 mg tablet 0.1 mg PO TID 7 Days Qty: 21 0RF hydroxyzine pamoate [Vistaril] 25 mg capsule 25 mg PO TID PRN (Reason: itching) 7 Days Qty: 21 0RF Stand Alone Forms: Work/School Release
[2023-09-11 21:23] LABS: COVID-19 Test Negative (Negative); IDNOW Serial# 08D9AD1C; IDNOW Serial# 58CA691E; Influenza A Negative (Negative); Influenza B2 Negative (Negative)
[2023-09-11 23:58] VITALS: BP 122/74; PULSE 87; RESP 22; TEMP 36.6; O2SAT 96
--- NOTE | 2023-09-12 00:16 | PC.NURSE ---
Respiratory called to make them aware of need for assistance with ED Bronch protocol
[2023-09-12 00:17] VITALS: BP 121/71; PULSE 76; RESP 20; O2SAT 93
[2023-09-12] MEDS: Albuterol Sulfate 2.5 MG, Albuterol/Iprat 2.5/0.5MG 3 ML 3 ML INHALE (00:31)
[2023-09-12 00:33] VITALS: PULSE 74; RESP 18; O2SAT 94
[2023-09-12] MEDS: methylPREDNISolone Sod Succ 125 MG/2 ML VIAL IVPUSH (00:41)
[2023-09-12] MEDS: Magnesium Sulfate/H2O 2 GM/50 ML PIGGYBACK IV (00:41)
[2023-09-12] MEDS: Albuterol Sulfate 2.5 MG, Albuterol Sulfate (0.083%) 2.5 MG 5 MG INHALE (00:58)
[2023-09-12 01:01] VITALS: PULSE 76; RESP 18; O2SAT 96
== END 2023-09-12 01:30 | disposition home or self-care (01) ==
PROVIDERS: Registered Nurse Emergency; Emergency Provider Emergency Medicine; PCP Nurse Practitioner Family
DX: J45.909 Unspecified asthma, uncomplicated (principal); Z11.52 Encounter for screening for COVID-19; R06.02 Shortness of breath
CPT/HCPCS: 71046; 87502; 87635; 94640; 96374; 96375; 99284; 99285; J2930; J3475

== ENCOUNTER 2023-10-08 17:31 | Emergency (ER) | payer OTHER, SELFPAY ==
--- NOTE | ~2023-10-08 | XR_ITS ---
EXAMINATION: CHEST 2 VIEWS CLINICAL INFORMATION: SOB, cough. COMPARISON: 09/11/2023. TECHNIQUE: PA and lateral views of the chest obtained. FINDINGS: The lungs are well expanded. No focal infiltrate, effusion, edema, or pneumothorax. Cardiac and mediastinal silhouettes are within normal limits for technique. No acute bony abnormality seen XR/XR chest 2V IMPRESSION: No evidence of acute disease
[2023-10-08 18:27] VITALS: BP 116/69; PULSE 74; RESP 20; TEMP 36.2; O2SAT 96; BMI 39.9
--- NOTE | 2023-10-08 18:32 | ED_ITS ---
HPI - Asthma General Chief Complaint: Asthma Stated Complaint: asthma Time Seen by Provider: 10/08/23 22:30 Source: patient Mode of arrival: ambulatory Limitations: no limitations History of Present Illness HPI Narrative: Patient comes to the emergency room complaining of an asthma exacerbation. Patient denies any recent URI. Patient states that now that the weather starting to get warmer and then colored again, that triggers her asthma. Patient has been using inhalers at home, has plenty of albuterol. However, today she continues having shortness of breath despite neb treatments. Patient states that when she is sitting she can breathe better, but if she starts walking especially out in the cold, she starts wheezing quite a bit. Related Data Previous Rx's Medication Instructions Recorded ondansetron 4 mg disintegrating 4 mg PO Q8H PRN nausea and 06/24/20 tablet vomiting #20 tabs albuterol sulfate 0.63 mg/3 mL 0.63 mg (3 mL) inhalation Q4-6H 10/21/20 solution for nebulization PRN shortness of breath or wheezing #75 mL albuterol sulfate 90 mcg/actuation 1 inh inhalation QID PRN shortness 10/21/20 aerosol inhaler of breath or wheezing #6.7 grams benzonatate 100 mg capsule 100 mg PO TID PRN cough #10 caps 10/21/20 (Tesgely Sinclair) prednisone 10 mg tablets in a dose 10 mg PO PER PKG DIR #48 ea 10/21/20 pack prednisone 50 mg tablet 50 mg PO DAILY #4 tabs 12/11/20 clonidine HCl 0.1 mg tablet 0.1 mg PO TID 7 days #21 tabs 03/01/21 buprenorphine 2 mg-naloxone 0.5 mg 3 film buccal DAILY 3 days #9 ea 03/08/21 sublingual film (Suboxone) hydroxyzine pamoate 25 mg capsule 25 mg PO TID PRN itching 7 days 04/19/21 (Vistaril) #21 caps amoxicillin 875 mg-potassium 1 tab PO BID #14 tabs 05/24/21 clavulanate 125 mg tablet (Augmentin) mometasone 50 mcg/actuation nasal 2 spray intranasal DAILY #17 grams 05/24/21 spray (Nasonex) azithromycin 250 mg tablet See Rx Instructions PO .COMPLEX #6 08/19/21 tabs ibuprofen 800 mg tablet 800 mg PO Q8H PRN pain #20 tabs 08/19/21 prednisone 20 mg tablet 60 mg (3 x 20 mg) PO DAILY 5 days 09/14/21 #15 tabs albuterol sulfate 90 mcg/actuation 2 inh inhalation Q4-6H PRN 10/31/21 breath activated powder inhaler shortness of breath #1 ea prednisone 20 mg tablet 40 mg (2 x 20 mg) PO DAILY 5 days 10/31/21 #10 tabs albuterol sulfate 90 mcg/actuation 2 puff inhalation Q4-6H PRN 12/10/21 aerosol inhaler shortness of breath or wheezing #8.5 grams prednisone 50 mg tablet 50 mg PO DAILY #5 tabs 12/10/21 prednisone 50 mg tablet 50 mg PO DAILY 4 days #4 tabs 08/18/23 prednisone 50 mg tablet 50 mg PO DAILY #4 tabs 09/12/23 prednisone 50 mg tablet 50 mg PO DAILY #4 tabs 10/09/23 Allergies Allergy/AdvReac Type Severity Reaction Status Date / Time prochlorperazine Allergy Mild MUSCLE Verified 10/08/23 18:31 [From COMPAZINE] CONTRACTIONS Compazine Allergy Unknown Shakiness Uncoded 10/08/23 18:31 Review of Systems Review of Systems: Constitutional : No Weight loss, No Fever, No Chills, No Night Sweats, No Fatigue, No Malaise ENT/Mouth : No Hearing loss, No Ear Pain, No Nasal Congestion, No Sinus Pain, No Hoarseness, No sore throat, No Rhinorrhea, No Swallowing Difficulty Eyes: No Eye Pain, No Swelling, No Redness, No Foreign Body, No Discharge, No Vision Changes Cardiovascular : No Chest Pain, No SOB, No Dyspnea on Exertion, No Orthopnea, No Edema, No Palpitations Respiratory : No Cough, No Sputum, complaining of wheezing and shortness of breath/chest tightness with no pain Gastrointestinal : No Nausea, No Vomiting, No Diarrhea, No Constipation, No abdominal Pain, No Hematochezia, No Melena Genitourinary : no irregular bleeding, No Dysuria, No Urinary Frequency, No Hematuria, No Urinary Incontinence, No Urgency, No Flank Pain, No Urinary Flow Changes, No Hesitancy Musculoskeletal : No joint pain, No Myalgias, No Joint Swelling Skin : No Skin Lesions, No rash Neuro : No Weakness, No Numbness, No Paresthesias, No Loss of Consciousness, No Dizziness, No Headache Psych : No Anxiety/Panic, No Depression, No SI/HI/AH/VH, No Social Issues, Heme/Lymph: No Bruising, No Bleeding,No Lymphadenopathy Endocrine : No Polyuria, No Polydipsia, No Temperature Intolerance PMFSH Past Medical History Medical History Opioid use disorder Asthma Hypothyroidism Social History Social History Alcohol intake: never Smoked in Last 30 Days: No Use of substances other than those prescribed or required for medical reasons: No Substance Use Type: Marijuana Advance Directives: No Advance Directives Information Provided: No Physical Exam Vital Signs: Vital Signs: Last Vital Signs Temp 97.8 F 10/08/23 22:58 Pulse 88 10/08/23 22:58 Resp 20 10/08/23 22:58 BP 116/69 10/08/23 18:27 Pulse Ox 96 10/08/23 22:58 O2 Del Method Room Air 10/08/23 22:58 BMI result Body Mass Index 39.9 Const: Other: Appearance: Alert. Oriented X3. No acute distress. Eyes: Pupils equal, round and reactive to light. ENT: Pharynx normal. Neck: Normal inspection. Neck supple. No lymph nodes noted. No crepitus CVS: Normal heart rate and rhythm. Pulses normal. Normal S1 and S2 Respiratory: No respiratory distress. Good air movement bilaterally, wheezing, oxygen saturation in the mid 90s Abdomen: Soft and nontender. No rigidity. No distention. Skin: Skin warm and dry. Normal skin color. Normal skin turgor. Extremities: No lower extremity edema. No Lacerations. No Rash Neuro: Oriented X 3. No motor deficit. No sensory deficit. Moving all extremities. No slurred speech. CN 2 through 12 grossly intact Psych: calm, cooperative, normal affect Course Course Course Narrative: RME performed by Bridget Love PA-C. Patient is a 37 year old assigned female at presenting to the emergency department with worsening asthma. Patient states that she is having worsening asthma over the last day. Detailed physical exam and review of systems are deferred to the communications equipment operator. Imaging and swabs ordered. Patient placed back in the waiting room pending room availability and results. Medications Administered Discontinued Medications Generic Name Dose Route Start Last Admin Trade Name Alek PRN Reason Stop Dose Admin Albuterol/Ipratropium 3 ml 10/08/23 22:45 10/08/23 22:52 Albuterol/Iprat 2.5/0.5mg 3 Ml Ampul.Neb INHALE 10/08/23 22:46 3 ml ONCE ONE Administration Prednisone 60 mg 10/08/23 22:35 10/08/23 23:03 Prednisone 20 Mg Tablet PO 10/08/23 22:36 60 mg ONCE ONE Administration Medical Decision Making Medical Decision Making [facility] Narrative: -patient wheezing, no respiratory distress, patient needs a nebulization treatment. -I offered to the patient IV Solu-Medrol and magnesium along with her neb treatments. Patient requested to only have p.o. medications. Patient states that if her breathing does not improve after the nebulization, she is agreeable to IV medications. -after p.o. prednisone and breathing treatment, patient feeling much better. Patient was ambulated in the emergency room, oxygen saturation 92% without desaturation or shortness of breath. -patient offered a 2nd breathing treatment. Patient declined, states that she feels much better and would like to be discharged home. Differential Diagnosis Differential Diagnoses: The differential diagnosis associated with the presentation includes (Asthma, URI, influenza, COVID) Lab Data [facility] Lab Attestation statement: I reviewed the patient's lab results. Labs: Lab Results 10/08/23 Range/Units 19:19 Influenza Type A (PCR) NEGATIVE (Negative) Influenza Type B (PCR) NEGATIVE (Negative) RSV RNA Qual (PCR) NEGATIVE (Negative) SARS-CoV-2 RNA (RT-PCR) NEGATIVE (Negative) Critical Care Time Critical Care Time Critical Care Time: Yes Total Critical Care Time: 45 Attestation: I have personally provided critical care time. Time includes review of lab data, radiology results, discussion with consultants, and monitoring for potential decompensation. Intervention performed as documented. Discharge Plan Discharge Clinical Impression: Asthma Patient Disposition: Home, Self-Care Instructions: Asthma (ED) Additional Instructions: Please follow-up with your primary care physician tomorrow. If you have any worsening or new symptoms, please return to the emergency room or call 911 Prescriptions: New prednisone 50 mg tablet 50 mg PO DAILY Qty: 4 0RF No Action buprenorphine-naloxone [Suboxone] 2-0.5 mg film 3 film buccal DAILY 3 Days Qty: 9 0RF ondansetron 4 mg tablet,disintegrating 4 mg PO Q8H PRN (Reason: nausea and vomiting) Qty: 20 0RF prednisone 50 mg tablet 50 mg PO DAILY Qty: 4 0RF Rx Instructions: Start 12/12/2020 prednisone 10 mg tablets,dose pack 10 mg PO PER PKG DIR Qty: 48 0RF benzonatate [Tessalon Perles] 100 mg capsule 100 mg PO TID PRN (Reason: cough) Qty: 10 0RF albuterol sulfate 90 mcg/actuation HFA aerosol inhaler 1 inh inhalation QID PRN (Reason: shortness of breath or wheezing) Qty: 6.7 0RF albuterol sulfate 0.63 mg/3 mL solution for nebulization 0.63 mg inhalation Q4-6H PRN (Reason: shortness of breath or wheezing) Qty: 75 0RF amoxicillin-pot clavulanate [Augmentin] 875-125 mg tablet 1 tab PO BID Qty: 14 0RF mometasone [Nasonex] 50 mcg/actuation spray,non-aerosol 2 spray intranasal DAILY Qty: 17 0RF Rx Instructions: administer into each nostril prednisone 20 mg tablet 40 mg PO DAILY 5 Days Qty: 10 0RF albuterol sulfate 90 mcg/actuation aerosol powdr breath activated 2 inh inhalation Q4-6H PRN (Reason: shortness of breath) Qty: 1 0RF azithromycin 250 mg tablet See Rx Instructions .ROUTE .COMPLEX Qty: 6 0RF Rx Instructions: For 250 mg dose pack: take 500 mg today (day 1), then 250 mg for 4 days (days 2-5) ibuprofen 800 mg tablet 800 mg PO Q8H PRN (Reason: pain) Qty: 20 0RF prednisone 20 mg tablet 60 mg PO DAILY 5 Days Qty: 15 0RF albuterol sulfate 90 mcg/actuation HFA aerosol inhaler 2 puff inhalation Q4-6H PRN (Reason: shortness of breath or wheezing) Qty: 8.5 2RF prednisone 50 mg tablet 50 mg PO DAILY Qty: 5 0RF prednisone 50 mg tablet 50 mg PO DAILY 4 Days Qty: 4 0RF prednisone 50 mg tablet 50 mg PO DAILY Qty: 4 0RF clonidine HCl 0.1 mg tablet 0.1 mg PO TID 7 Days Qty: 21 0RF hydroxyzine pamoate [Vistaril] 25 mg capsule 25 mg PO TID PRN (Reason: itching) 7 Days Qty: 21 0RF Stand Alone Forms: Work/School Release
[2023-10-08 19:58] LABS: Influenza A PCR NEGATIVE (Negative); Influenza B PCR NEGATIVE (Negative); Resp Syncy Virus RNA Qual PCR NEGATIVE (Negative); SARS COV2 PCR INHOUSE NEGATIVE (Negative)
[2023-10-08] MEDS: Albuterol/Iprat 2.5/0.5MG 3 ML AMPUL.NEB INHALE (22:52)
[2023-10-08 22:53] VITALS: PULSE 70; RESP 16; O2SAT 96
[2023-10-08 22:58] VITALS: PULSE 88; RESP 20; TEMP 36.6; O2SAT 96
[2023-10-08] MEDS: predniSONE 20 MG TABLET 60 MG PO (23:03)
== END 2023-10-09 00:17 | disposition home or self-care (01) ==
PROVIDERS: Physician Assistant Medical; Emergency Provider Emergency Medicine; PCP Nurse Practitioner Family
DX: J45.901 Unspecified asthma with (acute) exacerbation (principal); R06.02 Shortness of breath; Z11.52 Encounter for screening for COVID-19; Z20.828 Contact with and (suspected) exposure to other viral communicable diseases
CPT/HCPCS: 0241U; 71046; 94640; 99284

== ENCOUNTER 2023-11-22 21:45 | Inpatient (IN) | payer OTHER, SELFPAY ==
--- NOTE | 2023-11-22 | ECG_ITS ---
Test Reason : DYSPENA Blood Pressure : / mmHG Vent. Rate : 088 BPM Atrial Rate : 088 BPM P-R Int : 118 ms QRS Dur : 072 ms QT Int : 404 ms P-R-T Axes : 077 047 -47 degrees QTc Int : 488 ms Normal sinus rhythm Nonspecific ST and T wave abnormality Abnormal ECG No previous ECGs available Referred By: Generic ED Physician Electronically Signed By:Gregory Aden
--- NOTE | ~2023-11-22 | XR_ITS ---
EXAMINATION: XR CHEST CLINICAL INFORMATION: Shortness of breath COMPARISON: 10/08/2023 TECHNIQUE: 2 views of the chest were obtained. FINDINGS: The lungs are clear with no focal consolidation. No evidence of pneumothorax, pulmonary edema, or pleural effusions. The cardiomediastinal silhouette is unremarkable. No acute osseous findings. XR/XR chest 2V IMPRESSION: No acute cardiopulmonary findings.
--- NOTE | ~2023-11-22 | CT_ITS ---
EXAMINATION: CTA CHEST PE STUDY CLINICAL INFORMATION: hypoxia Ddimer elev COMPARISON: 11/22/2023 chest x-ray TECHNIQUE: Prior to contrast administration, noncontrast localization images were obtained. After the administration of 65 mL of Omnipaque nonionic IV contrast, contiguous thin slice helical images were obtained through the thorax. Reformatted MIP images in the coronal and sagittal planes were obtained at the acquisition workstation. This CT examination was performed using dose optimization techniques as appropriate, variously including the following: *Automated exposure control *Adjustment of mA and/or kV according to patient size (this includes techniques or standardized protocols for targeted exams where dose is matched to indication/reason for exam; i.e. extremities or head) *Use of iterative reconstruction technique DLP: 493 mGy-cm. FINDINGS: The bolus timing on this study was acceptable for visualization of the pulmonary arterial tree. There are no intraluminal pulmonary arterial filling defects present to suggest pulmonary embolism. Minimal linear atelectatic changes at the right lung base. No abnormal pulmonary nodules or masses are appreciated. No significant hilar or mediastinal adenopathy. There is no evidence of pleural effusion or pneumothorax. The heart is normal in size. No evidence of ventricular septal bowing or right heart strain. Great vessels are normal. Otherwise the mediastinum is unremarkable. There is no pericardial effusion or pericardial thickening. Limited evaluation of the upper abdominal viscera is unremarkable. CT/CT angio chest PE protocol IMPRESSION: 1. No evidence for pulmonary emboli. 2. Minimal atelectatic changes at the right lung base. 3. VTE: Negative.
[2023-11-22 21:54] VITALS: BP 119/74; PULSE 100; RESP 20; TEMP 36.3; O2SAT 99; BMI 39.2
[2023-11-22 22:29] LABS: MANUAL DIFF FLAG NO
[2023-11-22 22:31] LABS: Basophils Absolute Auto 0.1 X10*3/uL (0.0-0.2); Basophils Percent Auto 0.8 % (0-2); Eosinophils Absolute Auto 0.7 X10*3/uL (0.0-0.4); Eosinophils Percent Auto 8.1 % (0-4); Hematocrit 33.4 % (37.0-47.0); Hemoglobin 10.9 g/dl (12.0-16.0); Imm Gran Abs Auto 0.03 X10*3/uL (0.00-0.03); Imm Gran Pct Auto 0.3 % (0.0-0.4); Lymphocytes Percent Auto 23.7 % (20-40); Mean Corpuscular HGB Conc 32.6 g/dl (31.0-35.0); Mean Corpuscular Volume 85.9 fL (80.0-98.0); Mean Platelet Volume 8.8 fL (9.4-12.3); Monocytes Absolute Auto 0.6 X10*3/uL (0.1-1.2); Monocytes Percent Auto 6.7 % (2-11); Neutrophils Absolute Auto 5.2 x10*3/uL (2.0-8.3); Neutrophils Percent Auto 60.4 % (45-73); Platelet Count 368 X10*3/uL (160-400); Red Blood Count 3.89 X10*6/uL (4.20-5.50); Red Cell Distribution Width 15.5 % (11.0-16.0); White Blood Count 8.6 X10*3/uL (4.8-10.8)
[2023-11-22 22:46] LABS: Alanine Aminotransferase 10 U/L (0-31); Albumin Level 4.1 g/dL (3.5-5.0); Alkaline Phosphatase 69 U/L (39-117); Anion Gap 15 (12-20); Aspartate Amino Transferase 19 U/L (5-31); Bilirubin Total 0.3 mg/dL (0.0-1.0); Blood Urea Nitrogen 11 mg/dL (9-16); Calcium 9.4 mg/dL (8.4-10.2); Carbon Dioxide 23 mmol/L (22-29); Chloride 108 mmol/L (96-108); Creatinine Clr Calc Pharmacy 130.4; Estimated Glomerular Filt Rate > 60; Glucose Random 91 mg/dL (60-115); Potassium 4.2 mmol/L (3.3-5.1); Sodium 142 mmol/L (135-145); Total Protein 7.7 g/dL (6.5-8.0)
[2023-11-22 23:53] VITALS: BP 110/59; PULSE 87; RESP 16; TEMP 36.9; O2SAT 95
[2023-11-23] VITALS (15 sets, daily range): BP systolic 94–134; BP diastolic 56–77; PULSE 79–120; RESP 12–30; TEMP 36.4–37; O2SAT 90–98; BMI 39.7
[2023-11-23] MEDS: Albuterol Sulfate 5 MG, Albuterol/Iprat 2.5/0.5MG 3 ML 3 ML INHALE (00:46)
--- NOTE | 2023-11-23 00:48 | ED.GENADULT ---
HPI - General Adult General Chief complaint: Dyspnea Stated complaint: cant breathe Time Seen by Provider: 11/23/23 00:40 History of Present Illness HPI narrative: The patient is a 38-year-old female with a long history of asthma and multiple ER visits for asthma who presented to the emergency room with 4-5 days of worsening shortness of breath. When the patient first arrived here today complained of shortness of breath and asthma but did not look particularly ill at triage. Her vital signs were unremarkable including her oxygen saturation on room air which was 99%. She had labs and a chest x-ray done and was placed in a room to be seen by a provider. While she was waiting in the room she became abruptly short of breath. A nurse noticed that she seemed to be in distress. She was sitting bolt upright, struggling to breathe, and profoundly diaphoretic. She was unable to speak because of her shortness of breath. The patient was later feeling much better was able to tell me that she has been having worsening asthma symptoms for about 4 or 5 days. She says that she went to an urgent care center yesterday because he was feeling short of breath. She was given a DuoNeb updraft which made her feel temporarily better. However clinic that she was ?fake wheezing? and she was not given any prednisone or any additional medications. 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 She says that after being placed in a room she had gone to the bathroom and when she walked back from the bathroom she became acutely short of breath. She says that she has had multiple problems with asthma in the past but never an episode this severe. Related Data Previous Rx's Medication Instructions Recorded ondansetron 4 mg disintegrating 4 mg PO Q8H PRN nausea and 06/24/20 tablet vomiting #20 tabs albuterol sulfate 0.63 mg/3 mL 0.63 mg (3 mL) inhalation Q4-6H 10/21/20 solution for nebulization PRN shortness of breath or wheezing #75 mL albuterol sulfate 90 mcg/actuation 1 inh inhalation QID PRN shortness 10/21/20 aerosol inhaler of breath or wheezing #6.7 grams benzonatate 100 mg capsule 100 mg PO TID PRN cough #10 caps 10/21/20 (Vera Sinclair) prednisone 10 mg tablets in a dose 10 mg PO PER PKG DIR #48 ea 10/21/20 pack prednisone 50 mg tablet 50 mg PO DAILY #4 tabs 12/11/20 clonidine HCl 0.1 mg tablet 0.1 mg PO TID 7 days #21 tabs 03/01/21 buprenorphine 2 mg-naloxone 0.5 mg 3 film buccal DAILY 3 days #9 ea 03/08/21 sublingual film (Suboxone) hydroxyzine pamoate 25 mg capsule 25 mg PO TID PRN itching 7 days 04/19/21 (Vistaril) #21 caps amoxicillin 875 mg-potassium 1 tab PO BID #14 tabs 05/24/21 clavulanate 125 mg tablet (Augmentin) mometasone 50 mcg/actuation nasal 2 spray intranasal DAILY #17 grams 05/24/21 spray (Nasonex) azithromycin 250 mg tablet See Rx Instructions PO .COMPLEX #6 08/19/21 tabs ibuprofen 800 mg tablet 800 mg PO Q8H PRN pain #20 tabs 08/19/21 prednisone 20 mg tablet 60 mg (3 x 20 mg) PO DAILY 5 days 09/14/21 #15 tabs albuterol sulfate 90 mcg/actuation 2 inh inhalation Q4-6H PRN 10/31/21 breath activated powder inhaler shortness of breath #1 ea prednisone 20 mg tablet 40 mg (2 x 20 mg) PO DAILY 5 days 10/31/21 #10 tabs albuterol sulfate 90 mcg/actuation 2 puff inhalation Q4-6H PRN 12/10/21 aerosol inhaler shortness of breath or wheezing #8.5 grams prednisone 50 mg tablet 50 mg PO DAILY #5 tabs 12/10/21 prednisone 50 mg tablet 50 mg PO DAILY 4 days #4 tabs 08/18/23 prednisone 50 mg tablet 50 mg PO DAILY #4 tabs 09/12/23 prednisone 50 mg tablet 50 mg PO DAILY #4 tabs 10/09/23 albuterol sulfate 90 mcg/actuation 2 puff inhalation Q4-6H PRN 11/23/23 aerosol inhaler shortness of breath or wheezing #8.5 grams prednisone 20 mg tablet 20 mg PO DAILY #12 tabs 11/23/23 Allergies Allergy/AdvReac Type Severity Reaction Status Date / Time prochlorperazine Allergy Mild MUSCLE Verified 11/22/23 21:59 [From COMPAZINE] CONTRACTIONS Compazine Allergy Unknown Shakiness Uncoded 10/08/23 18:31 Review of Systems Review of Systems: Yes all other systems are reviewed and are negative [facility] Past Medical History Medical History Opioid use disorder Asthma Hypothyroidism Social History Social History Alcohol intake: never Substance Use Type: Marijuana Advance Directives: No Advance Directives Information Provided: No Physical Exam ED Vital Signs: Vital Signs - 24 hr 11/22/23 21:54 11/22/23 23:53 11/23/23 00:47 Temperature 97.4 F 98.4 F Pulse Rate 100 87 120 H Respiratory Rate 20 16 30 H Blood Pressure 119/74 110/59 L Pulse Oximetry 99 95 Oxygen Delivery Method Room Air Room Air 11/23/23 00:49 11/23/23 02:30 Temperature Pulse Rate 110 H 98 Respiratory Rate 28 H 16 Blood Pressure Pulse Oximetry Oxygen Delivery Method BMI result Body Mass Index 39.2 Const Other: First encountered the patient she was awake but looks profoundly unwell, sitting bolt upright, struggling to breathe, and profusely diaphoretic. HENMT Other: The face was sweaty. Airway was clear. Mucous membranes moist Eyes Other: Pupils are round equal, conjunctivae clear, extraocular movements intact Neck Other: No JVD, no stridor. Resp Other: The patient was tachypneic with obvious increased work of breathing. She had coarse inspiratory and expiratory wheezes bilaterally with a prolonged expiratory phase Cardio Rate: tachycardic Rhythm: regular rhythm Heart sounds: S1 normal heart sound present and S2 normal heart sound present GI Other: Abdomen is soft and nontender Skin Other: Skin was profusely diaphoretic Neuro Other: The patient was awake but seemed acutely agitated and could barely speak. No obvious facial asymmetry. Symmetrical tone in the extremities. No lateralizing findings. Extrem Other: No calf swelling or tenderness, no calf asymmetry asymmetry Medications Administered Discontinued Medications Generic Name Dose Route Start Last Admin Trade Name Freq PRN Reason Stop Dose Admin Albuterol Sulfate 5 mg/ 7.5 mg 11/23/23 00:46 11/23/23 00:49 Albuterol Sulfate 2.5 mg INHALE 11/23/23 00:47 7.5 mg ONCE ONE Administration Albuterol/Ipratropium 3 ml 11/23/23 02:15 11/23/23 02:30 Albuterol/Iprat 2.5/0.5mg 3 Ml Ampul.Neb INHALE 11/23/23 02:16 3 ml ONCE ONE Administration Albuterol Sulfate 5 mg/ 0 mg 11/23/23 00:43 11/23/23 00:46 Albuterol/Ipratropium 3 ml INHALE 11/23/23 00:44 7.5 each ONCE ONE Administration Magnesium Sulfate 2 gm in 50 mls @ 150 mls/hr 11/23/23 00:40 11/23/23 01:19 Magnesium Sulfate/H2o IV 11/23/23 00:59 Infused ONCE ONE Infusion Methylprednisolone Sodium Succinate 60 mg 11/23/23 00:41 11/23/23 00:59 Methylprednisolone Sod Succ 125 Mg/2 Ml Vial IVPUSH 11/23/23 00:42 60 mg ONCE ONE Administration Medical Decision Making Medical Decision Making [facility] Narrative: The patient is a 38-year-old female with a history of asthma who has had worsening symptoms of asthma with the last 4 or 5 days. She was seen at urgent care yesterday but not given steroids. She left work today because of shortness of breath and came to the hospital. While waiting to be seen she became abruptly an acutely short of breath, wheezy, and profoundly diaphoretic. She looked acute distress. She was placed on oxygen and moved into a resuscitation room. She was given aggressive bronchodilator treatment. An IV was placed and she was given 60 mg of IV methylprednisolone and 2 g of magnesium. Her respiratory distress improved dramatically. She continued to wheeze and was observed and given additional bronchodilator treatments. At this point she has fallen asleep with a respiratory rate of about 12. Lab Data 11/22/23 22:25 11/22/23 22:25 Labs: Lab Results 11/22/23 11/23/23 Range/Units 22:25 00:57 WBC 8.6 (4.8-10.8) X10*3/uL RBC 3.89 L (4.20-5.50) X10*6/uL Hgb 10.9 L (12.0-16.0) g/dl Hct 33.4 L (37.0-47.0) % MCV 85.9 (80.0-98.0) fL MCH 28.0 (27.0-33.0) pg MCHC 32.6 (31.0-35.0) g/dl RDW 15.5 (11.0-16.0) % Plt Count 368 D (160-400) X10*3/uL MPV 8.8 L (9.4-12.3) fL Immature Gran % (Auto) 0.3 (0.0-0.4) % Neut % (Auto) 60.4 (45-73) % Lymph % (Auto) 23.7 (20-40) % Divide % (Auto) 6.7 (2-11) % Eos % (Auto) 8.1 H (0-4) % Baso % (Auto) 0.8 (0-2) % Lymph # (Auto) 2.0 (1.2-4.9) X10*3/uL Divide # (Auto) 0.6 (0.1-1.2) X10*3/uL Eos # (Auto) 0.7 H (0.0-0.4) X10*3/uL Baso # (Auto) 0.1 (0.0-0.2) X10*3/uL Abs Immat Gran (auto) 0.03 (0.00-0.03) X10*3/uL Absolute Neuts (auto) 5.2 (2.0-8.3) x10*3/uL Absolute Nucleated RBC 0.000 (0.0-0.012) X10*3/uL Nucleated RBC % (auto) 0.0 (0.0-0.2) /100WBC Sodium 142 (135-145) mmol/L Potassium 4.2 (3.3-5.1) mmol/L Chloride 108 (96-108) mmol/L Carbon Dioxide 23 (22-29) mmol/L Anion Gap 15 (12-20) BUN 11 (9-16) mg/dL Creatinine 0.76 (0.5-1.4) mg/dL Estim Creat Clear Calc 130.4 Estimated GFR > 60 Random Glucose 91 (60-115) mg/dL Calcium 9.4 (8.4-10.2) mg/dL Total Bilirubin 0.3 (0.0-1.0) mg/dL AST 19 (5-31) U/L ALT 10 (0-31) U/L Alkaline Phosphatase 69 (39-117) U/L Total Protein 7.7 (6.5-8.0) g/dL Albumin 4.1 (3.5-5.0) g/dL Beta HCG, Quant < 2 mIU/mL Influenza Type A (PCR) NEGATIVE (Negative) Influenza Type B (PCR) NEGATIVE (Negative) RSV RNA Qual (PCR) NEGATIVE (Negative) SARS-CoV-2 RNA (RT-PCR) NEGATIVE (Negative) Discharge Plan Discharge Clinical Impression: Acute asthma exacerbation Patient Disposition: Still a Patient Instructions: Asthma (ED), How to Use a Metered-Dose Inhaler and a Spacer (ED) Additional Instructions: Please rest and take it easy. Take prednisone daily as prescribed. Use your albuterol inhaler 2 puffs every 4-6 hours as needed. Use the inhaler with an AeroChamber (spacer). Follow up soon with your regular doctor. Consider referral to a guide setter. Return to the emergency room if worse. Prescriptions: New prednisone 20 mg tablet 20 mg PO DAILY Qty: 12 0RF Rx Instructions: Take 3 tablets by mouth daily for 2 days then 2 tablets by mouth daily for 3 days. albuterol sulfate 90 mcg/actuation HFA aerosol inhaler 2 puff inhalation Q4-6H PRN (Reason: shortness of breath or wheezing) Qty: 8.5 0RF No Action buprenorphine-naloxone [Suboxone] 2-0.5 mg film 3 film buccal DAILY 3 Days Qty: 9 0RF ondansetron 4 mg tablet,disintegrating 4 mg PO Q8H PRN (Reason: nausea and vomiting) Qty: 20 0RF prednisone 50 mg tablet 50 mg PO DAILY Qty: 4 0RF Rx Instructions: Start 12/12/2020 prednisone 10 mg tablets,dose pack 10 mg PO PER PKG DIR Qty: 48 0RF benzonatate [Tessalon Perles] 100 mg capsule 100 mg PO TID PRN (Reason: cough) Qty: 10 0RF albuterol sulfate 90 mcg/actuation HFA aerosol inhaler 1 inh inhalation QID PRN (Reason: shortness of breath or wheezing) Qty: 6.7 0RF albuterol sulfate 0.63 mg/3 mL solution for nebulization 0.63 mg inhalation Q4-6H PRN (Reason: shortness of breath or wheezing) Qty: 75 0RF amoxicillin-pot clavulanate [Augmentin] 875-125 mg tablet 1 tab PO BID Qty: 14 0RF mometasone [Nasonex] 50 mcg/actuation spray,non-aerosol 2 spray intranasal DAILY Qty: 17 0RF Rx Instructions: administer into each nostril prednisone 20 mg tablet 40 mg PO DAILY 5 Days Qty: 10 0RF albuterol sulfate 90 mcg/actuation aerosol powdr breath activated 2 inh inhalation Q4-6H PRN (Reason: shortness of breath) Qty: 1 0RF azithromycin 250 mg tablet See Rx Instructions .ROUTE .COMPLEX Qty: 6 0RF Rx Instructions: For 250 mg dose pack: take 500 mg today (day 1), then 250 mg for 4 days (days 2-5) ibuprofen 800 mg tablet 800 mg PO Q8H PRN (Reason: pain) Qty: 20 0RF prednisone 20 mg tablet 60 mg PO DAILY 5 Days Qty: 15 0RF albuterol sulfate 90 mcg/actuation HFA aerosol inhaler 2 puff inhalation Q4-6H PRN (Reason: shortness of breath or wheezing) Qty: 8.5 2RF prednisone 50 mg tablet 50 mg PO DAILY Qty: 5 0RF prednisone 50 mg tablet 50 mg PO DAILY 4 Days Qty: 4 0RF prednisone 50 mg tablet 50 mg PO DAILY Qty: 4 0RF prednisone 50 mg tablet 50 mg PO DAILY Qty: 4 0RF clonidine HCl 0.1 mg tablet 0.1 mg PO TID 7 Days Qty: 21 0RF hydroxyzine pamoate [Vistaril] 25 mg capsule 25 mg PO TID PRN (Reason: itching) 7 Days Qty: 21 0RF Referrals: Amarilys London NP [Primary Care Provider] - (Severe asthma episode)
[2023-11-23] MEDS: Albuterol Sulfate 5 MG, Albuterol Sulfate (0.083%) 2.5 MG 7.5 MG INHALE (00:49)
--- NOTE | 2023-11-23 00:55 | PC.NURSE ---
this rn assumed care of pt @ 2340. @ 2353 vs updated. spo2 95% RA. pt awaiting to be seen by ed provider. pt began calling out @ 0045 for help this rn to bedside pt noted to be dyspnic, spo2 @ 79%, pt placed on 4 lpm nc, then placed on non rebreather @ 15 md rt to bedside. pt transported to main ed bed 5
[2023-11-23] MEDS: Magnesium Sulfate/H2O 2 GM/50 ML PIGGYBACK IV (00:59)
[2023-11-23] MEDS: methylPREDNISolone Sod Succ 125 MG/2 ML VIAL 60 MG IVPUSH (00:59)
[2023-11-23 01:46] LABS: HCG Quantitative < 2 mIU/mL
[2023-11-23 01:50] LABS: Influenza A PCR NEGATIVE (Negative); Influenza B PCR NEGATIVE (Negative); Resp Syncy Virus RNA Qual PCR NEGATIVE (Negative); SARS COV2 PCR INHOUSE NEGATIVE (Negative)
--- NOTE | 2023-11-23 02:19 | PC.NURSE ---
pt brought to ED Bed 5 @ 0055 for respiratory distress. RT at bedside - breathing treatments are being administered. SPO2 100% on O2 15LPM. pt was noticeably tachypneic, tachycardic, and diaphoretic. after receiving breathing treatments, IV solumedrol, and IV mag pt is resting comfortably in bed. speaking in full sentences. airway is open and patent.
[2023-11-23] MEDS: Albuterol/Iprat 2.5/0.5MG 3 ML AMPUL.NEB INHALE ×5 (02:30→19:17)
--- NOTE | 2023-11-23 06:31 | P.HPHOSP_ITS ---
History of Present Illness Date of Service: 11/23/23 Chief Complaint: Dyspnea This is a 34-year-old female with pertinent history of asthma not on home oxygen, hypothyroidism, mood disorder who presents to the emergency department for evaluation of dyspnea. Patient states she started having symptoms 4-5 days prior to presentation. Patient is having progressive dyspnea which is worse with exertion. Also has associated nonproductive cough and wheezing. Patient tried her home inhaler without any relief. Patient states she has never been hospitalized for asthma. No fever, chills, chest discomfort, palpitations, abdominal pain, changes in urinary or bowel habits. In the emergency department, patient with continued wheezing despite multiple DuoNeb treatments. Patient was found to be hypoxemic and requiring 2 L supplemental oxygen. Review of Systems 2 Constitutional: Constitutional: Reports no additional constitutional complaints Cardiovascular: Cardiovascular: Reports dyspnea on exertion Respiratory: Respiratory: Reports cough, Reports dyspnea on exertion and Reports wheezing Gastrointestinal: Gastrointestinal: Reports no additional gastrointestinal complaints Genitourinary: Genitourinary: Reports no additional female genitourinary complaints Allergic/Immunologic: Allergic/Immunologic: Reports wheezing [facility] Medical History Mood disorder Opioid use disorder Asthma Hypothyroidism Pertinent family history: No family history of early CAD Social History Alcohol intake: never Substance Use Type: Marijuana Advance Directives: No Advance Directives Information Provided: No Meds Allergies Allergy/AdvReac Type Severity Reaction Status Date / Time prochlorperazine Allergy Mild MUSCLE Verified 11/22/23 21:59 [From COMPAZINE] CONTRACTIONS Compazine Allergy Unknown Shakiness Uncoded 10/08/23 18:31 Physical Exam 2 Vital Signs and Narrative: Vital Signs: Last Vital Signs Temp 98.6 F 11/23/23 05:22 Pulse 91 11/23/23 05:22 Resp 12 11/23/23 05:22 BP 116/68 11/23/23 05:22 Pulse Ox 92 11/23/23 05:22 O2 Del Method Nasal Cannula 11/23/23 05:22 O2 Flow Rate 2 11/23/23 05:22 BMI result Body Mass Index 39.2 Middle-aged female lying in bed in mild distress on supplemental oxygen Neck supple, no JVD Regular rate and rhythm, S1-S2 heard Bilateral wheezing appreciated Abdomen soft nontender, no guarding, no rigidity Patient is awake, alert and oriented to self, place, time and person ; no focal motor deficit Psych: Normal mood No pedal edema Results Labs 11/22/23 22:25 11/22/23 22:25 Labs: Laboratory Results - last 24 hr 11/22/23 11/23/23 22:25 00:57 MCV 85.9 MCH 28.0 MCHC 32.6 RDW 15.5 Plt Count 368 D MPV 8.8 L Immature Gran % (Auto) 0.3 Neut % (Auto) 60.4 Lymph % (Auto) 23.7 [place] % (Auto) 6.7 Eos % (Auto) 8.1 H Baso % (Auto) 0.8 Lymph # (Auto) 2.0 [place] # (Auto) 0.6 Eos # (Auto) 0.7 H Baso # (Auto) 0.1 Abs Immat Gran (auto) 0.03 Absolute Neuts (auto) 5.2 Absolute Nucleated RBC 0.000 Nucleated RBC % (auto) 0.0 Anion Gap 15 Estim Creat Clear Calc 130.4 Estimated GFR > 60 Random Glucose 91 Calcium 9.4 Total Bilirubin 0.3 AST 19 ALT 10 Alkaline Phosphatase 69 Total Protein 7.7 Albumin 4.1 Beta HCG, Quant < 2 Influenza Type A (PCR) NEGATIVE Influenza Type B (PCR) NEGATIVE RSV RNA Qual (PCR) NEGATIVE SARS-CoV-2 RNA (RT-PCR) NEGATIVE Imaging Radiologist's Impressions: Impressions Chest X-Ray 11/22/23 22:36 IMPRESSION: No acute cardiopulmonary findings. Assessment and Plan (1) Acute asthma exacerbation: Status: Acute Plan This is a 34-year-old female with pertinent history of asthma not on home oxygen, hypothyroidism, mood disorder who presents to the emergency department for evaluation of dyspnea. #. Acute hypoxemic respiratory failure due to acute exacerbation of asthma: Will admit patient with supplemental oxygen. IV systemic steroids. Scheduled and p.r.n. DuoNebs. Continue home inhaler. #. Mood disorder: Continue home mood stabilizers #. Hypothyroidism: On Synthroid #. Obesity: Counseled regarding diet and exercise Med rec pending DVT prophylaxis: Lovenox Full code Admit as inpatient and will require two night minimum hospital stay for supplemental oxygen, IV steroids (as above), which is not possible in a lesser acute setting. Quality Stroke Does the patient have a stroke diagnosis?: No VTE Prior VTE?: No VTE Risk Level:: Medical - moderate - high VTE Device Contraindication: Treatment Not Indicated VTE Drug Contraindication: N/A - Med Ordered
[2023-11-23] MEDS: Enoxaparin Sodium 40 MG/0.4 ML SYRINGE SUBCUT (07:31)
[2023-11-23] MEDS: ondansetron HCL 4 MG/2 ML VIAL IVPUSH ×2 (07:31→19:29)
[2023-11-23] MEDS: 0.9 % Sodium Chloride Flush 3 ML SYRINGE IVFLUSH ×3 (07:32→19:36)
--- NOTE | 2023-11-23 08:03 | PC.NURSE ---
Pt remains to desat and get short of breathing when getting up to bedside commode or having conversation with the RN. PT increased to 3L NC from 2L Nc with good effect. Pt still able to talk in full sentences at this time. Zofran given with good effect on nausea
[2023-11-23] MEDS: methylPREDNISolone Sod Succ 40 MG/ML VIAL IVPUSH ×2 (09:19→20:39)
--- NOTE | 2023-11-23 09:22 | PC.NURSE ---
patient a&ox3, shelter monitor intact, nsr-sinus tach with movement, pt on 3L NC sat mid 90s- not home o2 dependent, lungs diminished with in/ex wheezing in bases only, pt medicated per order, oob to commode but experiences sob when doing so, call davis within reach, will continue to monitor
[2023-11-23 09:25] LABS: D Dimer High Sensitivity 333 NG/ML
--- NOTE | 2023-11-23 09:40 | PHA.MEDREC ---
Pharmacy Consult ? Medication Reconciliation Pharmacy has completed the medication reconciliation. Spoke to patient and confirmed medication list.
--- NOTE | 2023-11-23 11:18 | PM.EVENT ---
Event Note Date of Service: 11/23/23 Event Note: Day hospitalist update S: c/o dyspnea; hypoxic. no hx VTE O: Temp Pulse Resp BP Pulse Ox O2 Del Method O2 Flow Rate 98.3 F 87 16 113/67 94 Nasal Cannula 2 11/23/23 06:39 11/23/23 11:14 11/23/23 11:14 11/23/23 11:06 11/23/23 11:06 11/23/23 11:06 11/23/23 11:06 Gen: mild resp distress HEENT: sclera anicteric, moist mucus membranes Neck: supple Lungs: diffuse exp wheezing Heart: regular rate and rhythm, no murmurs Abd: soft, non-tender, non-distended Ext: no edema Skin: warm/well-perfused Neuro: alert and oriented x3, no focal findings Psych: appropriate affect Labs: D-dimer 333 A/P: d1 34yo F with moderate persistent asthma, mood disorder, hypothyroidism presenting with 5 days of dyspnea, found to be hypoxic acute exacerbation of moderate persistent asthma - steroids, nebs, home controller inhalers, montelukast acute hypoxic respiratory failure - wean O2 as tolerated. given elevated D-dimer will obtain CTA to r/o PE hypothyroidism - continue LT4 mood disorder - quetiapine VTE ppx - LMWH dispo - eventual home In my clinical judgment, the patient requires continued hospitalization for the following reasons: hypoxia Time Spent With Patient Time: Total time managing care of this patient today ____ minutes.
--- NOTE | 2023-11-23 11:32 | MHC.CM.PN ---
Met with patient in regards to discharge planning. Patient lives with her and children, ambulates independently and had no services prior to coming to the hospital. No services anticipated to be needed because patient is not homebound. PCP verified. Richard received 3 Pfizer vaccines. Patient's will transport her home when medically stable. Continue to monitor for d/c needs.
--- NOTE | 2023-11-23 12:15 | PC.NURSE ---
ASSUMED CARE AT 1200. PT BROUGHT FROM ED 5 TO [facility]W 3. PE STUDY DONE PRIOR TO COMING TO OVFLW UNIT. FAMILY AT BEDSIDE, WILL CONTINUE TO OBSERVE.
[2023-11-23] MEDS: iohexoL 350 MG/ML 100 ML INFUS..BTL 65 ML IV (12:21)
--- NOTE | 2023-11-23 13:10 | MHC.EDTECH ---
pt ate 0% percent pt stated ( she doesn't have a appetite)
--- NOTE | 2023-11-23 13:13 | MHC.EDTECH ---
gave pt a pitcher of water
--- NOTE | 2023-11-23 13:46 | MHC.EDTECH ---
pt was given hygiene stuff to wash and told her if she needed assistance and she said no she did it on her own
[2023-11-23] MEDS: Acetaminophen 325 MG TABLET 650 MG PO (16:38)
--- NOTE | 2023-11-23 17:29 | MHC.EDTECH ---
THIS PCT JUST ASSUMED CARE OF PATIENT ,VITALS TAKEN ,PT RESTING IN BED ,PATIENT REFUSED DINNER ,RN AWARE ,CALL [facility] WITHIN PT REACH .
--- NOTE | 2023-11-23 17:47 | PC.NURSE ---
Tylenol given for 10 headache. pt sleeping at this time.
[2023-11-23] MEDS: QUEtiapine Fumarate 25 MG TABLET PO (20:39)
[2023-11-24 02:57] VITALS: BP 123/67; PULSE 93; RESP 20; TEMP 36.2; O2SAT 93
[2023-11-24 05:40] LABS: MANUAL DIFF FLAG NO
[2023-11-24] MEDS: Levothyroxine Sodium 150 MCG TABLET PO (05:42)
[2023-11-24] MEDS: Enoxaparin Sodium 40 MG/0.4 ML SYRINGE SUBCUT (05:42)
[2023-11-24 05:49] LABS: Hematocrit 32.9 % (37.0-47.0); Hemoglobin 10.5 g/dl (12.0-16.0); Imm Gran Abs Auto 0.05 X10*3/uL (0.00-0.03); Imm Gran Pct Auto 0.5 % (0.0-0.4); Lymphocytes Absolute Auto 0.7 X10*3/uL (1.2-4.9); Lymphocytes Percent Auto 7.4 % (20-40); Mean Corpuscular HGB Conc 31.9 g/dl (31.0-35.0); Mean Corpuscular Hemoglobin 27.8 pg (27.0-33.0); Monocytes Absolute Auto 0.3 X10*3/uL (0.1-1.2); Monocytes Percent Auto 3.3 % (2-11); Neutrophils Absolute Auto 8.4 x10*3/uL (2.0-8.3); Neutrophils Percent Auto 88.8 % (45-73); Platelet Count 387 X10*3/uL (160-400); Red Blood Count 3.78 X10*6/uL (4.20-5.50); Red Cell Distribution Width 15.8 % (11.0-16.0); White Blood Count 9.5 X10*3/uL (4.8-10.8)
[2023-11-24 05:56] LABS: Anion Gap 11 (12-20); Blood Urea Nitrogen 16 mg/dL (9-16); Calcium 9.6 mg/dL (8.4-10.2); Carbon Dioxide 24 mmol/L (22-29); Chloride 108 mmol/L (96-108); Creatinine Clr Calc Pharmacy 118.9; Estimated Glomerular Filt Rate > 60; Glucose Random 118 mg/dL (60-115); Potassium 4.7 mmol/L (3.3-5.1); Sodium 138 mmol/L (135-145)
[2023-11-24] MEDS: Albuterol/Iprat 2.5/0.5MG 3 ML AMPUL.NEB INHALE ×2 (07:32→11:27)
[2023-11-24 07:33] VITALS: PULSE 93; RESP 20; O2SAT 93
[2023-11-24 07:35] VITALS: BP 103/55; PULSE 75; RESP 20; TEMP 36.6; O2SAT 97
[2023-11-24] MEDS: Fluticasone/Vilanterol 100/25 BLST.W.DEV 1 PUFF INHALE (07:48)
[2023-11-24] MEDS: 0.9 % Sodium Chloride Flush 3 ML SYRINGE IVFLUSH (08:55)
[2023-11-24] MEDS: Montelukast Sodium 10 MG TABLET PO (08:55)
[2023-11-24] MEDS: methylPREDNISolone Sod Succ 40 MG/ML VIAL IVPUSH (08:55)
--- NOTE | 2023-11-24 11:25 | PM.DS ---
DS: Providers Provider Date of Service: 11/24/23 Date of admission: 11/23/23 06:31 Date of discharge: 11/24/23 Primary care physician: Amarilys London NP DS: Diagnosis Discharge Diagnosis (1) Acute asthma exacerbation: Status: Acute (2) Acute respiratory failure with hypoxia: Status: Acute DS: Summary Hospital Course Hospital Course: From the history and physical by the admitting hospitalist, Alvaro Arrieta MD, 11/23/23: This is a 34-year-old female with pertinent history of asthma not on home oxygen, hypothyroidism, mood disorder who presents to the emergency department for evaluation of dyspnea. Patient states she started having symptoms 4-5 days prior to presentation. Patient is having progressive dyspnea which is worse with exertion. Also has associated nonproductive cough and wheezing. Patient tried her home inhaler without any relief. Patient states she has never been hospitalized for asthma. No fever, chills, chest discomfort, palpitations, abdominal pain, changes in urinary or bowel habits. In the emergency department, patient with continued wheezing despite multiple DuoNeb treatments. Patient was found to be hypoxemic and requiring 2 L supplemental oxygen. 34yo F with moderate persistent asthma, mood disorder, hypothyroidism presenting with 5 days of dyspnea, found to be hypoxic. No evidence of pneumonia and testing for influenza + Covid-19 was negative. She was admitted to the medical-surgical floor and treated with IV steroids and nebulzied bronchodilators. Oxygen was weaned off. CT angio of the chest was negative for PE. She was discharged home on prednisone for 3 days. Time Attestation Total time managing care of this patient today: 35 mintues. Discharge Coordination Time (in mins): 35 Quality: Safe Use of Opioids Does Pt have an Active Cancer Diagnosis on the Problem List?: No Quality: Stroke Does the patient have a stroke diagnosis?: No Physical Exam Vital Signs: Vital Signs: Last Vital Signs Temp 97.8 F 11/24/23 07:35 Pulse 75 11/24/23 07:35 Resp 20 11/24/23 07:35 BP 103/55 L 11/24/23 07:35 Pulse Ox 97 11/24/23 07:35 O2 Del Method Nasal Cannula 11/24/23 02:57 O2 Flow Rate 2 11/23/23 19:36 BMI result Body Mass Index 39.7 Gen: in no acute distress HEENT: sclera anicteric, moist mucus membranes Neck: supple Lungs: soft wheeze at R base that cleared Heart: regular rate and rhythm, no murmurs Abd: soft, non-tender, non-distended Ext: no edema Skin: warm/well-perfused Neuro: alert and oriented x3, no focal findings Psych: appropriate affect DS: Data Data Completed and Pending Completed studies during hospitalization [Text1]: Laboratory Results WBC 9.5 X10*3/uL (4.8-10.8) 11/24/23 05:32 RBC 3.78 X10*6/uL (4.20-5.50) L 11/24/23 05:32 Hgb 10.5 g/dl (12.0-16.0) L 11/24/23 05:32 Hct 32.9 % (37.0-47.0) L 11/24/23 05:32 MCV 87.0 fL (80.0-98.0) 11/24/23 05:32 MCH 27.8 pg (27.0-33.0) 11/24/23 05:32 MCHC 31.9 g/dl (31.0-35.0) 11/24/23 05:32 RDW 15.8 % (11.0-16.0) 11/24/23 05:32 Plt Count 387 X10*3/uL (160-400) 11/24/23 05:32 MPV 9.0 fL (9.4-12.3) L 11/24/23 05:32 Immature Gran % (Auto) 0.5 % (0.0-0.4) H 11/24/23 05:32 Neut % (Auto) 88.8 % (45-73) H 11/24/23 05:32 Lymph % (Auto) 7.4 % (20-40) L 11/24/23 05:32 Graves % (Auto) 3.3 % (2-11) 11/24/23 05:32 Eos % (Auto) 0.0 % (0-4) 11/24/23 05:32 Baso % (Auto) 0.0 % (0-2) 11/24/23 05:32 Lymph # (Auto) 0.7 X10*3/uL (1.2-4.9) L 11/24/23 05:32 Graves # (Auto) 0.3 X10*3/uL (0.1-1.2) 11/24/23 05:32 Eos # (Auto) 0.0 X10*3/uL (0.0-0.4) 11/24/23 05:32 Baso # (Auto) 0.0 X10*3/uL (0.0-0.2) 11/24/23 05:32 Abs Immat Gran (auto) 0.05 X10*3/uL (0.00-0.03) H 11/24/23 05:32 Absolute Neuts (auto) 8.4 x10*3/uL (2.0-8.3) H 11/24/23 05:32 Absolute Nucleated RBC 0.000 X10*3/uL (0.0-0.012) 11/24/23 05:32 Nucleated RBC % (auto) 0.0 /100WBC (0.0-0.2) 11/24/23 05:32 D-Dimer High Sensitivty 333 NG/ML 11/23/23 09:05 Sodium 138 mmol/L (135-145) 11/24/23 05:32 Potassium 4.7 mmol/L (3.3-5.1) 11/24/23 05:32 Chloride 108 mmol/L (96-108) 11/24/23 05:32 Carbon Dioxide 24 mmol/L (22-29) 11/24/23 05:32 Anion Gap 11 (12-20) L 11/24/23 05:32 BUN 16 mg/dL (9-16) 11/24/23 05:32 Creatinine 0.84 mg/dL (0.5-1.4) 11/24/23 05:32 Estim Creat Clear Calc 118.9 11/24/23 05:32 Estimated GFR > 60 11/24/23 05:32 Random Glucose 118 mg/dL (60-115) H 11/24/23 05:32 Calcium 9.6 mg/dL (8.4-10.2) 11/24/23 05:32 Total Bilirubin 0.3 mg/dL (0.0-1.0) 11/22/23 22:25 AST 19 U/L (5-31) 11/22/23 22:25 ALT 10 U/L (0-31) 11/22/23 22:25 Alkaline Phosphatase 69 U/L (39-117) 11/22/23 22:25 Total Protein 7.7 g/dL (6.5-8.0) 11/22/23 22:25 Albumin 4.1 g/dL (3.5-5.0) 11/22/23 22:25 Beta HCG, Quant < 2 mIU/mL 11/22/23 22:25 Influenza Type A (PCR) NEGATIVE (Negative) 11/23/23 00:57 Influenza Type B (PCR) NEGATIVE (Negative) 11/23/23 00:57 RSV RNA Qual (PCR) NEGATIVE (Negative) 11/23/23 00:57 SARS-CoV-2 RNA (RT-PCR) NEGATIVE (Negative) 11/23/23 00:57 Impressions Chest X-Ray 11/22/23 22:36 IMPRESSION: No acute cardiopulmonary findings. Chest CTA 11/23/23 12:21 IMPRESSION: 1. No evidence for pulmonary emboli. 2. Minimal atelectatic changes at the right lung base. 3. VTE: Negative. Discharge Plan Discharge Anticipated Discharge Date/Time: 11/24/23 11:14 Patient Disposition: Home, Self-Care Discharge Diagnosis: hypoxia asthma exacerbation Referrals: Amarilys London, GEOLOGICAL ENGINEERING TEACHER [Primary Care Provider] - (Severe asthma episode) Discharge Medications: New prednisone 20 mg tablet 40 mg PO DAILY Qty: 6 0RF Continued albuterol sulfate 0.63 mg/3 mL solution for nebulization 0.63 mg inhalation Q4-6H PRN (Reason: shortness of breath or wheezing) Qty: 75 0RF albuterol sulfate 90 mcg/actuation aerosol powdr breath activated 2 inh inhalation Q4-6H PRN (Reason: shortness of breath) Qty: 1 0RF quetiapine 25 mg tablet 25 mg PO BEDTIME fluticasone propion-salmeterol [Advair Diskus] 250-50 mcg/dose blister with device 1 inh INHALATION BID ipratropium-albuterol 0.5 mg-3 mg(2.5 mg base)/3 mL solution for nebulization 3 ml inhalation Q8H PRN (Reason: wheezing) levothyroxine 150 mcg tablet 150 mcg PO DAILY montelukast 10 mg tablet 10 mg PO DAILY ibuprofen 200 mg Tablet 200 mg PO DAILY PRN (Reason: Pain) Discharge Orders: Discharge Order (Routine); Ordered 11/24/23 Ordered By: Oscar Serna Diet: Advance to usual diet Activity on Discharge: As tolerated Stand Alone Forms: Patient Portal Discharge page, Work/School Release Care Plan Goals: respiratory health Health Concerns: hypoxia asthma exacerbation Plan of Treatment: prednisone 40 mg daily x 3 days albuterol for rescue Assessment: See Discharge Summary. Patient Instructions: Asthma (ED), How to Use a Metered-Dose Inhaler and a Spacer (ED)
[2023-11-24 11:28] VITALS: PULSE 75; RESP 20; O2SAT 94
--- NOTE | 2023-11-24 14:05 | MHC.CM.PN ---
PT TO DC HOME TODAY WITH NO SERVICES VIA PRIVATE TRANSPORT
== END 2023-11-24 13:03 | disposition home or self-care (01) | DRG 141 ==
LOC: HO.ED 11-23 03:17 → HO.EDOVER 11-23 06:37 → HO.S3 11-23 11:20 → HO.EDOVER 11-23 11:23 → HO.S3 11-23 17:33
PROVIDERS: Admitting Provider Student in an Organized Health Care Education/Training Program; Emergency Provider Emergency Medicine; PCP Nurse Practitioner Family; Visit Provider Family Medicine
DX: J45.41 Moderate persistent asthma with (acute) exacerbation (principal); J96.01 Acute respiratory failure with hypoxia; E66.9 Obesity, unspecified; Z68.39 Body mass index [BMI] 39.0-39.9, adult; Z71.3 Dietary counseling and surveillance; E03.9 Hypothyroidism, unspecified; Z20.822 Contact with and (suspected) exposure to COVID-19; Z87.891 Personal history of nicotine dependence; Z79.51 Long term (current) use of inhaled steroids; Z79.890 Hormone replacement therapy; Z79.899 Other long term (current) drug therapy
CPT/HCPCS: 0241U; 36415; 71046; 71275; 80048; 80053; 84702; 85025; 85379; 93005; 94640; 99221; 99285; J1650; J2405; J2920; J2930; J3475; Q9967

== ENCOUNTER → 2023-11-22 22:15 | Outpatient (BNV) | payer OTHER, SELFPAY | PROVIDERS: Admitting Provider Student in an Organized Health Care Education/Training Program; Emergency Provider Emergency Medicine; PCP Nurse Practitioner Family; Visit Provider Internal Medicine Cardiovascular Disease | DX: R06.09 Other forms of dyspnea (principal); R94.31 Abnormal electrocardiogram [ECG] [EKG] | CPT/HCPCS: 93010 ==

== ENCOUNTER → 2023-11-23 06:31 | Outpatient (BNV) | payer OTHER, SELFPAY | PROVIDERS: Admitting Provider Student in an Organized Health Care Education/Training Program; Emergency Provider Emergency Medicine; PCP Nurse Practitioner Family; Visit Provider Student in an Organized Health Care Education/Training Program | DX: J45.901 Unspecified asthma with (acute) exacerbation (principal); J96.01 Acute respiratory failure with hypoxia | CPT/HCPCS: 99222; 99239; 99499 ==

== ENCOUNTER 2024-10-20 17:27 | Emergency (ER) | payer OTHER, SELFPAY ==
--- NOTE | ~2024-10-20 | XR_ITS ---
CLINICAL HISTORY: wheezing 2 view chest x-ray Comparison: CR/SR - XR CHEST 2V - 11/22/23 22:40 EDT Findings: There is very faint right lower lobe density. This is new from prior. Heart size is normal. No acute fracture. IMPRESSION: Faint right lower lobe density, new from prior. Early infiltrate suspected. This document has been electronically signed by: Moise Duarte MD on 10/20/2024 18:40:31
[2024-10-20 17:50] VITALS: BP 118/47; PULSE 62; RESP 16; TEMP 36.4; O2SAT 97; BMI 35.9
--- NOTE | 2024-10-20 17:52 | ED.SOB ---
HPI - SOB/Dyspnea General Chief Complaint: Asthma Stated Complaint: asthma Time Seen by Provider: 10/21/24 00:05 History of Present Illness ED Provider: Susan ROGER Narrative: The patient is a 38-year-old female with a history of asthma who says that she feels her asthma has been acting up over the last 3 or 4 days. She feels she is very wheezy and somewhat short of breath. She has not felt feverish. Related Data Home Medications ?Medication ?Instructions ?Recorded ?Confirmed fluticasone 250 mcg-salmeterol 50 1 inh inhalation BID 11/23/23 11/23/23 mcg/dose blistr powdr for inhalation (Advair Diskus) ibuprofen 200 mg tablet 200 mg PO DAILY PRN Pain 11/23/23 11/23/23 ipratropium 0.5 mg-albuterol 3 mg 3 ml inhalation Q8H PRN wheezing 11/23/23 11/23/23 (2.5 mg base)/3 mL nebulization soln levothyroxine 150 mcg tablet 150 mcg PO DAILY 11/23/23 11/23/23 montelukast 10 mg tablet 10 mg PO DAILY 11/23/23 11/23/23 quetiapine 25 mg tablet 25 mg PO BEDTIME 11/23/23 11/23/23 Previous Rx's ?Medication ?Instructions ?Recorded albuterol sulfate 0.63 mg/3 mL 0.63 mg (3 mL) inhalation Q4-6H 10/21/20 solution for nebulization PRN shortness of breath or wheezing #75 mL albuterol sulfate 90 mcg/actuation 2 inh inhalation Q4-6H PRN 10/31/21 breath activated powder inhaler shortness of breath #1 ea prednisone 20 mg tablet 40 mg (2 x 20 mg) PO DAILY #6 tabs 11/24/23 budesonide-formoterol HFA 160 2 puff inhalation BID #10.2 grams 10/21/24 mcg-4.5 mcg/actuation aerosol inhaler doxycycline monohydrate 100 mg 100 mg PO BID #14 caps 10/21/24 capsule prednisone 20 mg tablet 20 mg PO DAILY #12 tabs 10/21/24 Allergies Allergy/AdvReac Type Severity Reaction Status Date / Time prochlorperazine Allergy Mild MUSCLE Verified 10/20/24 17:53 [From COMPAZINE] CONTRACTIONS Compazine Allergy Unknown Shakiness Uncoded 10/08/23 18:31 Review of Systems Review of Systems: Yes all other systems are reviewed and are negative [facility] Past Medical History Medical History Mood disorder Opioid use disorder Asthma Hypothyroidism Social History Social History Household Members: Family Household Members Other:: 3 Housing: Condominium Do you presently have visiting nurse or other home services: No Alcohol intake: never Patient Tobacco Use Status: Former Tobacco user Tobacco use type: Cigarette e-Cigarette/Vaping Use: Never Used Second Hand Smoke Exposure: No Substance Use Type: Marijuana Advance Directives: No Advance Directives Information Provided: No service: No Physical Exam Vital Signs: Vital Signs: Last Vital Signs Temp 98.1 F 10/21/24 00:22 Pulse 78 10/21/24 00:22 Resp 20 10/21/24 00:22 BP 136/73 10/21/24 00:22 Pulse Ox 94 10/21/24 00:22 O2 Del Method Room Air 10/21/24 00:22 BMI result Body Mass Index 35.9 Const: Other: The patient is awake and alert, pleasant cooperative. She does not appear in overt distress. Orientation/consciousness: patient oriented x3 HEENT: Other: Face is symmetrical. Mucous membranes moist. Eyes: General: appearance normal, both eyes and all related structures Neck: Neck: Yes full ROM and Yes no JVD Resp: Other: The patient has inspiratory and expiratory wheezes bilaterally throughout both lung barr. No definite crackles. Cardio: Rate: regular rate Rhythm: regular rhythm Heart sounds: S1 normal heart sound present and S2 normal heart sound present GI: Other: Abdomen is soft and nontender Skin: Other: Skin is dry and unremarkable Neuro: General: patient oriented x3, moves all extremities, no focal motor deficits and CN's II-XI intact bilaterally Extrem: Other: No calf tenderness or asymmetry Course Course Course Narrative: This is a Rapid Medical Examination (RME) performed by Colette Bailey PA-C in triage. Full HPI, ROS, assessment and treatment plan per primary provider in the Main ED. 38 yo female hx of asthma, hypothyroidism, mood disorder, opioid use disorder here for eval of sob/ wheezing and chest tightness. + no increased effort of breathing. Audible wheezes. Inspiratory and expiratory wheezes throughout. Plan: Viral swabs, chest x-ray, ED bronch protocol ordered Medications Administered Discontinued Medications Generic Name Dose Route Start Last Admin Trade Name Alek PRN Reason Stop Dose Admin Albuterol Sulfate 2.5 mg/ 0 mg 10/20/24 18:37 10/20/24 18:38 Albuterol/Ipratropium 3 ml INHALE 10/20/24 18:38 5 dose ONCE ONE Administration Doxycycline Monohydrate 100 mg 10/21/24 00:12 10/21/24 00:20 Doxycycline Monohydrate 100 Mg Capsule PO 10/21/24 00:13 100 mg ONCE ONE Administration Prednisone 60 mg 10/21/24 00:12 10/21/24 00:22 Prednisone 20 Mg Tablet PO 10/21/24 00:13 60 mg ONCE ONE Administration Medical Decision Making Medical Decision Making MDM Narrative: The patient is a 38-year-old woman with a history of asthma. She is here because she has symptoms of an asthma exacerbation. Clinically she has bilateral inspiratory and expiratory wheezes. She does not appear in distress however. A chest x-ray was read as possibly showing an early right lower lobe infiltrate. Clinically my suspicion for pneumonia is not very high. Nevertheless she will be placed on a course of doxycycline in addition to prednisone. She was also prescribed budesonide formoterol. Lab Data Labs: Lab Results 10/20/24 Range/Units 18:03 Influenza Type A (PCR) NEGATIVE (Negative) Influenza Type B (PCR) NEGATIVE (Negative) RSV RNA Qual (PCR) NEGATIVE (Negative) SARS-CoV-2 RNA (RT-PCR) NEGATIVE (Negative) Discharge Plan Discharge Clinical Impression: Acute asthmatic bronchitis Patient Disposition: Home, Self-Care Instructions: Asthma (ED) Additional Instructions: Please take the prednisone daily as prescribed. Please take the doxycycline, an antibiotic, 2 times a day as prescribed. I have sent a prescription for an inhaler medication, budesonide/formoterol. This is a combination of a bronchodilator and steroid. When you are feeling reasonably well you can simply take 2 puffs 2 times a day. If you feel that your asthma is getting worse you can increase the frequency of this inhaler in the same way that you would use albuterol up to 2 puffs every 4 hours as needed. Please work on figuring out who your ongoing primary care doctor is going to be and make a prompt follow up appointment. Return to the emergency room if significantly worse. Prescriptions: New prednisone 20 mg tablet 20 mg PO DAILY Qty: 12 0RF Rx Instructions: Take 3 tablets by mouth daily for 2 days then take 2 tablets by mouth daily for 3 days. doxycycline monohydrate 100 mg capsule 100 mg PO BID Qty: 14 0RF budesonide-formoterol 160-4.5 mcg/actuation HFA aerosol inhaler 2 puff inhalation BID Qty: 10.2 0RF No Action albuterol sulfate 0.63 mg/3 mL solution for nebulization 0.63 mg inhalation Q4-6H PRN (Reason: shortness of breath or wheezing) Qty: 75 0RF albuterol sulfate 90 mcg/actuation aerosol powdr breath activated 2 inh inhalation Q4-6H PRN (Reason: shortness of breath) Qty: 1 0RF quetiapine 25 mg tablet 25 mg PO BEDTIME fluticasone propion-salmeterol [Advair Diskus] 250-50 mcg/dose blister with device 1 inh INHALATION BID ipratropium-albuterol 0.5 mg-3 mg(2.5 mg base)/3 mL solution for nebulization 3 ml inhalation Q8H PRN (Reason: wheezing) levothyroxine 150 mcg tablet 150 mcg PO DAILY montelukast 10 mg tablet 10 mg PO DAILY ibuprofen 200 mg Tablet 200 mg PO DAILY PRN (Reason: Pain) prednisone 20 mg tablet 40 mg PO DAILY Qty: 6 0RF Stand Alone Forms: Work/School Release Interventions: ED Discharge Assessment Last Done: 10/21/24 00:22 Discharge Date/Time: 10/21/24 00:24 Print Language: Syriac
[2024-10-20 18:37] VITALS: PULSE 97; RESP 20; O2SAT 93
[2024-10-20] MEDS: Albuterol Sulfate 2.5 MG, Albuterol/Iprat 2.5/0.5MG 3 ML 3 ML INHALE (18:38)
--- OUTSIDE RECORDS SUMMARY | 2024-10-20 18:51 | XMS_ITS | Clinical Summary ---
Author Organization [facility] it Address [address] [place] [address] Care Team Providers Care Rn Wellness Name Role Phone Unavailable Primary Care Provider Unavailabl e Social History Tobacco Use Types Packs/Day Years Used Date Smoking Tobacco: Never Assessed Comments Unknown Sex and Gender Information Value Date Recorded Sex Assigned at Not on file Legal Sex Female 1:57 PM EST Gender Identity Not on file Sexual Orientation Not on file Plan of Treatment Health Maintenance Due Date Last Done Comments DTaP,Tdap,and Td Vaccines (1 - Tdap) 2004 Hepatitis B Vaccines (1 of 3 - 19+ 3-dose series) 2004 Cervical Cancer Screening: P ap Smear 2006 COVID-19 Vaccine ( - 2023-2 5 season) 2024 Influenza Vaccine (#1) 2024 HIB Vaccines Aged Out No longer eligi ble based on patient's age to complete this topic HPV Vaccines Aged Out No longer eligi ble based on patient's age to complete this topic Hepatitis A Vaccines Aged Out No long er eligible based on patient's age to complete this topic IPV Vaccines Aged Out No longer eligi ble based on patient's age to complete this topic MMR Vaccines Aged Out No longer eligi ble based on patient's age to complete this topic Meningococcal ACWY Vaccine Aged Out N o longer eligible based on patient's age to complete this topic Meningococcal B Vacine Aged Out No lo nger eligible based on patient's age to complete this topic Pneumococcal Vaccine: Pediat rics (0 to 5 Years) and At-Risk Patients (6 to 64 Years) Aged Out No longer eligible b ased on patient's age to complete this topic RSV Immunization Patients Un missy 20 months Aged Out No longer eligible b ased on patient's age to complete this topic Varicella Vaccines Aged Out No longer eligible based on patient's age to complete this topic
[2024-10-20 19:14] LABS: Influenza A PCR NEGATIVE (Negative); Influenza B PCR NEGATIVE (Negative); Resp Syncy Virus RNA Qual PCR NEGATIVE (Negative); SARS COV2 PCR INHOUSE NEGATIVE (Negative)
[2024-10-21 00:10] VITALS: BP 136/73; PULSE 78; RESP 20; TEMP 36.7; O2SAT 94
[2024-10-21] MEDS: Doxycycline Monohydrate 100 MG CAPSULE PO (00:20)
[2024-10-21 00:22] VITALS: BP 136/73; PULSE 78; RESP 20; TEMP 36.7; O2SAT 94
[2024-10-21] MEDS: predniSONE 20 MG TABLET 60 MG PO (00:22)
== END 2024-10-21 00:24 | disposition home or self-care (01) ==
PROVIDERS: Physician Assistant Medical; Emergency Provider Emergency Medicine
DX: J20.9 Acute bronchitis, unspecified (principal); R06.02 Shortness of breath; R50.9 Fever, unspecified; R06.2 Wheezing; Z03.818 Encounter for observation for suspected exposure to other biological agents ruled out
CPT/HCPCS: 0241U; 71046; 94640; 99284

== ENCOUNTER → 2024-10-20 17:51 | Outpatient (BNV) | payer OTHER, SELFPAY | PROVIDERS: Visit Provider Radiology Vascular & Interventional Radiology | DX: R91.8 Other nonspecific abnormal finding of lung field (principal) | CPT/HCPCS: 71046 ==

== ENCOUNTER 2024-11-30 08:28 | Emergency (ER) | payer OTHER, SELFPAY ==
--- NOTE | ~2024-11-30 | XR_ITS ---
CLINICAL HISTORY: PROD COUGH, ASTHMA Chest radiographs, 2 views Comparison: CR - XR CHEST 2V - 10/20/24 18:20 EST Findings: The cardiomediastinal silhouette is not enlarged. Pulmonary vascularity is unremarkable. No focal consolidation or effusion. No pneumothorax. IMPRESSION: No acute cardiopulmonary findings. This document has been electronically signed by: Uriel Ruiz DO on 11/30/2024 09:57:03
[2024-11-30 08:30] VITALS: BP 144/91; PULSE 92; RESP 20; TEMP 36.1; O2SAT 96; BMI 35.0
--- OUTSIDE RECORDS SUMMARY | 2024-11-30 08:40 | XMS_ITS | Clinical Summary ---
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
--- NOTE | 2024-11-30 09:01 | ED.URI ---
HPI - URI/Sore Throat General Chief Complaint: Upper Respiratory Symptoms Stated Complaint: asthma, sob Time Seen by Provider: 11/30/24 08:56 Source: patient Mode of arrival: ambulatory Limitations: no limitations History of Present Illness ED Provider: Marlen Andrade APRN HPI Narrative: 39-year-old female with a history of asthma, hypothyroidism presents the ER with complaints of sore throat, shortness of breath, nausea, productive cough, chills since Sunday. patient has been using her DuoNeb for the last few days with relief. She has had multiple ER visits for asthma exacerbation. She has not needed prednisone for several months. She denies any chest pain, fevers, vomiting, diarrhea, leg swelling or leg pain. No recent travel. 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 illnesses Related Data Home Medications ?Medication ?Instructions ?Recorded ?Confirmed fluticasone 250 mcg-salmeterol 50 1 inh inhalation BID 11/23/23 11/23/23 mcg/dose blistr powdr for inhalation (Advair Diskus) ibuprofen 200 mg tablet 200 mg PO DAILY PRN Pain 11/23/23 11/23/23 ipratropium 0.5 mg-albuterol 3 mg 3 ml inhalation Q8H PRN wheezing 11/23/23 11/23/23 (2.5 mg base)/3 mL nebulization soln levothyroxine 150 mcg tablet 150 mcg PO DAILY 11/23/23 11/23/23 montelukast 10 mg tablet 10 mg PO DAILY 11/23/23 11/23/23 quetiapine 25 mg tablet 25 mg PO BEDTIME 11/23/23 11/23/23 Previous Rx's ?Medication ?Instructions ?Recorded albuterol sulfate 0.63 mg/3 mL 0.63 mg (3 mL) inhalation Q4-6H 10/21/20 solution for nebulization PRN shortness of breath or wheezing #75 mL albuterol sulfate 90 mcg/actuation 2 inh inhalation Q4-6H PRN 10/31/21 breath activated powder inhaler shortness of breath #1 ea prednisone 20 mg tablet 40 mg (2 x 20 mg) PO DAILY #6 tabs 11/24/23 budesonide-formoterol HFA 160 2 puff inhalation BID #10.2 grams 10/21/24 mcg-4.5 mcg/actuation aerosol inhaler doxycycline monohydrate 100 mg 100 mg PO BID #14 caps 10/21/24 capsule prednisone 20 mg tablet 20 mg PO DAILY #12 tabs 10/21/24 azithromycin 250 mg tablet See Rx Instructions PO .COMPLEX #6 11/30/24 tabs prednisone 20 mg tablet 40 mg (2 x 20 mg) PO DAILY #8 tabs 11/30/24 Allergies Allergy/AdvReac Type Severity Reaction Status Date / Time prochlorperazine Allergy Mild MUSCLE Verified 11/30/24 08:32 [From COMPAZINE] CONTRACTIONS Compazine Allergy Unknown Shakiness Uncoded 11/30/24 08:32 Review of Systems Review of Systems: Yes all other systems are reviewed and are negative Constitutional: Constitutional: Reports no additional constitutional complaints, Denies body ache(s), Reports chills, Denies fever(s), Denies headache(s) and Denies weakness Eyes: Eyes: Reports no additional eye complaints and Denies change in vision ENT: Reports system reviewed and no additional complaints, except as documented, Denies dizziness, Denies headache(s), Denies nasal congestion, Denies nasal discharge, Denies neck pain and Reports sore throat Cardiovascular: Cardiovascular: Reports no additional cardiovascular complaints, Denies chest pain, Denies leg edema and Reports dyspnea Respiratory: Respiratory: Reports no additional respiratory complaints, Reports cough, Reports dyspnea and Reports wheezing Gastrointestinal: Gastrointestinal: Reports no additional gastrointestinal complaints, Denies abdominal pain, Denies diarrhea, Reports nausea and Denies vomiting Genitourinary: Genitourinary: Reports no additional female genitourinary complaints and Denies urinary incontinence Musculoskeletal: Musculoskeletal: Reports no additional musculoskeletal complaints, Denies back pain, Denies arthralgias, Denies joint swelling, Denies neck pain, Denies numbness and Denies tingling Integumentary/Breasts: Skin/Breast: Reports system reviewed and no additional complaints, except as docu and Denies rash Neurologic: Reports system reviewed and no additional complaints, except as documented, Denies Abnormal speech present, Denies dizziness, Denies headache(s), Denies numbness, Denies tingling and Denies weakness Allergic/Immunologic: Allergic/Immunologic: Reports wheezing PMFSH Past Medical History Attestation statement: The following information was validated with the patient. Source: old records reviewed and nursing notes reviewed Medical History Mood disorder Opioid use disorder Asthma Hypothyroidism Social History Social History Household Members: Family Household Members Other:: 3 Housing: [facility] Do you presently have visiting nurse or other home services: No Alcohol intake: never Patient Tobacco Use Status: Former Tobacco user Tobacco use type: Cigarette e-Cigarette/Vaping Use: Never Used Second Hand Smoke Exposure: No Substance Use Type: Marijuana Advance Directives: No Advance Directives Information Provided: No service: No Physical Exam Vital Signs: Vital Signs: Last Vital Signs Temp 98.5 F 11/30/24 09:29 Pulse 72 11/30/24 10:40 Resp 18 11/30/24 10:40 BP 112/71 11/30/24 09:29 Pulse Ox 95 11/30/24 09:29 O2 Del Method Room Air 11/30/24 09:29 BMI result Body Mass Index 35.0 Const: General: cooperative, healthy appearing, comfortable and no acute distress Orientation/consciousness: patient oriented x3 Limitations: no limitations HEENT: Head: Yes normal to inspection Ears: hearing grossly normal bilaterally General nose exam: Normal external nose present Face and sinus: Yes normal facial exam Mouth: Normal oral and palatal mucosa present Throat: Yes posterior oropharynx normal Eyes: General: appearance normal, both eyes and all related structures Pupils: Equal, round and reactive pupils present Neck: Neck: Yes normal visual inspection Chest: Chest palpation & inspection: normal inspection of the chest Resp: Effort & Inspection: normal respiratory effort Auscultation: wheezes Cardio: Rate: regular rate Rhythm: regular rhythm Peripheral pulses: Peripheral pulses 2+ throughout GI: Inspection: Yes normal to inspection Palpation (GI): Soft to palpation and nontender Auscultation: normal bowel sounds Back/Spine/Pelvis: Thoracic/Lumbar Spine: thoracic and lumbar spine normal to inspection Skin: General skin exam: no rashes or lesions noted Neuro: General: patient oriented x3, no focal motor deficits and normal sensation to monofilament Cranial nerves: Yes Equal, round and reactive pupils present Cognition (Neuro): normal cognition Speech: No Abnormal speech present Gait exam (Neuro): Normal gait present Motor exam (neuro): 5/5 motor strength present throughout Extrem: General: Yes normal to inspection, Yes no pedal edema and Yes no calf tenderness Course Course Course Narrative: viral screen is negative. Strep screen is negative. Chest x-ray shows no signs of pneumonia. Patient likely has a viral syndrome which is triggering her asthma. She has no hypoxia or tachypnea. She is speaking full sentences. I will discharge her home with azithromycin, prednisone. She has adequate albuterol at home. Reviewed worrisome signs and symptoms of when to return to the emergency room. Comfortable plan for discharge home. Medications Administered Discontinued Medications Generic Name Dose Route Start Last Admin Trade Name Rickyq PRN Reason Stop Dose Admin Albuterol Sulfate 5 mg/ 0 mg 11/30/24 10:31 11/30/24 10:37 Albuterol/Ipratropium 3 ml INHALE 11/30/24 10:32 7.5 each ONCE ONE Administration Ondansetron HCl 4 mg 11/30/24 09:12 11/30/24 10:08 Ondansetron Odt 4 Mg Tab.Rapdis TRANSLINGU 11/30/24 09:13 4 mg ONCE ONE Administration Prednisone 60 mg 11/30/24 09:07 11/30/24 10:08 Prednisone 20 Mg Tablet PO 11/30/24 09:08 60 mg ONCE ONE Administration Medical Decision Making Medical Decision Making MDM Narrative: 39-year-old female with a history of asthma, hypothyroidism presents the ER with complaints of sore throat, shortness of breath, nausea, productive cough, chills since Sunday. patient has been using her DuoNeb for the last few days with relief. She has had multiple ER visits for asthma exacerbation. She has not needed prednisone for several months. She denies any chest pain, fevers, vomiting, diarrhea, leg swelling or leg pain. No recent travel. 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 illnesses on exam patient has expiratory and inspiratory wheezing Her vitals are stable Will obtain testing for RSV/ flu / COVID, strep testing, chest x-ray Will give bronchodilator, anti emetic and prednisone Differential Diagnosis Differential Diagnoses: The differential diagnosis associated with the presentation includes viral syndrome, strep pharyngitis, pneumonia, bronchitis Asthma exacerbation low suspicion for PE with perc 0 Admission/Observation Consideration of admission/observation: Escalation of care including admission/observation considered Asthma exacerbation with no hypoxia or tachypnea requiring supplemental oxygen and or admission Lab Data MDM Lab Attestation statement: I reviewed the patient's lab results. Labs: Lab Results 11/30/24 11/30/24 Range/Units 08:36 09:17 Influenza Type A (PCR) NEGATIVE (Negative) Influenza Type B (PCR) NEGATIVE (Negative) RSV RNA Qual (PCR) NEGATIVE (Negative) SARS-CoV-2 RNA (RT-PCR) NEGATIVE (Negative) S. pyogenes GrpA FREEDOM Negative (Negative) Independent Interpretation I performed an independent interpretation of an: Plain X-Ray Interpretation: I independently viewed the x-ray and agree with the radiology report Radiology Impression Discussion of test interpretation with radiology: I have reviewed the radiologist's reading. Radiologist Impression: [address] [address] XRay Report Signed Patient: Yessenia Davies MR#: [id number] : 1985 Acct:[id number] Age/Sex: 39 / F ADM Date: 11/30/24 Loc: .ED Attending Dr: Ordering Physician: Graeme Montoya MD Date of Service: 11/30/24 Procedure(s): XR chest 2V Accession Number(s): [id number] cc: Graeme Montoya MD; Physician,None ~ CLINICAL HISTORY: PROD COUGH, ASTHMA Chest radiographs, 2 views Comparison: CR - XR CHEST 2V - 10/20/24 18:20 EST Findings: The cardiomediastinal silhouette is not enlarged. Pulmonary vascularity is unremarkable. No focal consolidation or effusion. No pneumothorax. IMPRESSION: No acute cardiopulmonary findings. This document has been electronically signed by: Uriel Ruiz DO on 11/30/2024 09:57:03 Prescription Management I considered prescription management with: Antibiotic Discharge Plan Discharge Clinical Impression: Bronchitis, Viral infection, Acute asthma exacerbation Patient Disposition: Home, Self-Care Instructions: Asthma (ED), Acute Bronchitis (ED), Viral Syndrome (ED) Additional Instructions: testing for flu, COVID, RSV and strep are negative Your x-ray shows no signs of pneumonia You received your 1st dose of prednisone while here in the emergency room and so your next dose will be due tomorrow Start your antibiotic today Take Mucinex daily to help make your cough productive Continue your asthma medications Return for any worsening symptoms Prescriptions: New prednisone 20 mg tablet 40 mg PO DAILY Qty: 8 0RF azithromycin 250 mg tablet See Rx Instructions .ROUTE .COMPLEX Qty: 6 0RF Rx Instructions: For 250 mg dose pack: take 500 mg today (day 1), then 250 mg for 4 days (days 2-5) No Action albuterol sulfate 0.63 mg/3 mL solution for nebulization 0.63 mg inhalation Q4-6H PRN (Reason: shortness of breath or wheezing) Qty: 75 0RF albuterol sulfate 90 mcg/actuation aerosol powdr breath activated 2 inh inhalation Q4-6H PRN (Reason: shortness of breath) Qty: 1 0RF quetiapine 25 mg tablet 25 mg PO BEDTIME fluticasone propion-salmeterol [Advair Diskus] 250-50 mcg/dose blister with device 1 inh INHALATION BID ipratropium-albuterol 0.5 mg-3 mg(2.5 mg base)/3 mL solution for nebulization 3 ml inhalation Q8H PRN (Reason: wheezing) levothyroxine 150 mcg tablet 150 mcg PO DAILY montelukast 10 mg tablet 10 mg PO DAILY ibuprofen 200 mg Tablet 200 mg PO DAILY PRN (Reason: Pain) prednisone 20 mg tablet 40 mg PO DAILY Qty: 6 0RF prednisone 20 mg tablet 20 mg PO DAILY Qty: 12 0RF Rx Instructions: Take 3 tablets by mouth daily for 2 days then take 2 tablets by mouth daily for 3 days. doxycycline monohydrate 100 mg capsule 100 mg PO BID Qty: 14 0RF budesonide-formoterol 160-4.5 mcg/actuation HFA aerosol inhaler 2 puff inhalation BID Qty: 10.2 0RF Referrals: Physician,None [Primary Care Provider] - 1 week ( as needed) Stand Alone Forms: Work/School Release Print Language: French
--- NOTE | 2024-11-30 09:01 | PC.NURSE ---
Away with radiology staff. Anthony (radiology) aware to bring patient to ED 23 upon completion of imaging.
[2024-11-30 09:18] LABS: Influenza A PCR NEGATIVE (Negative); Influenza B PCR NEGATIVE (Negative); Resp Syncy Virus RNA Qual PCR NEGATIVE (Negative); SARS COV2 PCR INHOUSE NEGATIVE (Negative)
[2024-11-30 09:29] VITALS: BP 112/71; PULSE 71; RESP 19; TEMP 36.9; O2SAT 95
[2024-11-30 09:52] LABS: IDNOW Serial# 58CA691E
[2024-11-30 09:53] LABS: Strep A Nucleic Acid Negative (Negative)
[2024-11-30] MEDS: Ondansetron ODT 4 MG TAB.RAPDIS TRANSLINGU (10:08)
[2024-11-30] MEDS: predniSONE 20 MG TABLET 60 MG PO (10:08)
[2024-11-30] MEDS: Albuterol Sulfate 5 MG, Albuterol/Iprat 2.5/0.5MG 3 ML 3 ML INHALE (10:37)
[2024-11-30 10:40] VITALS: PULSE 72; RESP 18; O2SAT 95
[2024-11-30 11:24] VITALS: BP 111/60; PULSE 78; RESP 18; TEMP 37; O2SAT 93
[2024-11-30 11:28] VITALS: BP 111/60; PULSE 78; RESP 18; TEMP 37; O2SAT 93
== END 2024-11-30 11:28 | disposition home or self-care (01) ==
PROVIDERS: Nurse Practitioner Family; Emergency Provider Emergency Medicine
DX: J40 Bronchitis, not specified as acute or chronic (principal); B34.9 Viral infection, unspecified; J45.901 Unspecified asthma with (acute) exacerbation; Z03.818 Encounter for observation for suspected exposure to other biological agents ruled out; J02.9 Acute pharyngitis, unspecified; R06.02 Shortness of breath; R05.9 Cough, unspecified; F12.90 Cannabis use, unspecified, uncomplicated; Z87.891 Personal history of nicotine dependence
CPT/HCPCS: 0241U; 71046; 87651; 94640; 99284

== ENCOUNTER → 2024-11-30 08:33 | Outpatient (BNV) | payer OTHER, SELFPAY | PROVIDERS: Emergency Provider Emergency Medicine; Visit Provider Radiology Diagnostic Radiology | DX: J45.909 Unspecified asthma, uncomplicated (principal) | CPT/HCPCS: 71046 ==